=== PATIENT | female | born 1955 | race Caucasian/White ===

== ENCOUNTER → 2018-01-04 08:31 | Outpatient (CLI) | payer OTHER, SELFPAY ==
[2018-01-04 09:46] LABS: Add Manual Diff / Slide Review NO; Basophils Percent Auto 0.5 % (0-2); Eosinophils Percent Auto 1.7 % (2-4); Hematocrit 40.6 % (36-46); Hemoglobin 13.8 g/dL (12.0-16.0); Lymphocytes Percent Auto 28.1 % (25-40); Mean Corpuscular Volume 88.2 fL (80-100); Monocytes Percent Auto 7.6 % (3-14); Neutrophils Absolute Auto 4200 /uL (3000-5900); Neutrophils Percent Auto 62.1 % (50-75); Platelet Count 256 X10^3/uL (150-400); Red Blood Cell Count 4.61 X10^6/uL (4.0-5.2); Red Cell Distribution Width 13.9 % (11.6-14.8); White Blood Cell Count 6.8 X10^3/uL (4.5-11.0)
[2018-01-04 09:50] LABS: Alanine Aminotransferase 27 IU/L (9-52); Albumin 4.8 g/dL (3.5-5.0); Albumin Globulin Ratio 1.5 (1.0-2.8); Alkaline Phosphatase 77 U/L (38-126); Aspartate Aminotransferase 28 IU/L (14-36); BUN Creatinine Ratio 22.5 (6-22); Bilirubin Total 0.6 mg/dL (0.2-1.3); Blood Urea Nitrogen 18 mg/dL (7-17); Calcium 10.4 mg/dL (8.4-10.2); Carbon Dioxide 30 mmol/L (22-32); Chloride 99 mmol/L (98-107); Cholesterol 254 mg/dL (140-199); Estimated Glomerular Filt Rate > 60.0 mL/min (>60); Globulin 3.1 g/dL (1.7-4.1); Glucose 111 mg/dL (80-110); HDL Cholesterol 99 mg/dL (40-60); HEMOLYSIS < 15 (0-50); LDL Cholesterol Calculated 143 mg/dL (<100); Potassium 3.4 mmol/L (3.4-5.1); Sodium 140 mmol/L (137-145); Total Protein 7.9 g/dL (6.3-8.2); Triglycerides 58 mg/dL (35-150)
[2018-01-04 10:11] LABS: Creatinine Urine Random 74.3 mg/dL
[2018-01-04 10:21] LABS: Microalbumin Urine Random < 0.6 mg/dL (0-1.6)
[2018-01-04 10:44] LABS: Thyroid Stimulating Hormone 1.95 uIU/mL (0.47-4.68)
[2018-01-06 13:15] LABS: Fecal Immunochemical Test NOT DETECTED
--- NOTE | 2018-01-07 15:54 | PM.PFT.1 ---
Pulmonary Function Test Referral & Results Date Patient Seen: 01/04/18 Requesting provider: Neo Martinez Indication: Asthma Results: The spirometry demonstrates an FVC of 2.02 L which is 56% of predicted. The FEV1 was measured at 1.24 L which is 45% of predicted. The FEV1/FVC ratio was 61 which is 79% of predicted. Following the administration of bronchodilator there was a 22% improvement in FEV1 and a 117% improvement in FEF 25-75%. Lung volumes show an SVC of 2.68 L which is 81% of predicted. The diffusing capacity was measured at 25.30 which is 89% of predicted. No hemoglobin value was provided, so no correction for potential anemia could be made, if appropriate. The maximum voluntary ventilation was reduced. Interpretation: This study demonstrates moderately severe obstructive lung disease with evidence of significant benefit following bronchodilator administration There is mild restrictive lung disease present and if any only mild reduction in diffusing capacity suggesting minimal if any disease at the capillary alveolar level. Compared to PFTs performed in January 2016, current study shows essentially no change in spirometry, FEV1 is slightly diminished versus 2016 study. The diffusing capacity in 2016 was significantly lower than it was on this study, question whether patient was anemic previously and not currently. Clinical correlation suggested
--- NOTE | 2018-01-07 15:57 | P.PFT.S_ITS ---
Pulmonary Function Test Referral & Results Date Patient Seen: 01/04/18 Requesting provider: Neo Martinez Indication: Asthma Results: The spirometry demonstrates an FVC of 2.02 L which is 56% of predicted. The FEV1 was measured at 1.24 L which is 45% of predicted. The FEV1/FVC ratio was 61 which is 79% of predicted. Following the administration of bronchodilator there was a 22% improvement in FEV1 and a 117% improvement in FEF 25-75%. Lung volumes show an SVC of 2.68 L which is 81% of predicted. The diffusing capacity was measured at 25.30 which is 89% of predicted. No hemoglobin value was provided, so no correction for potential anemia could be made, if appropriate. The maximum voluntary ventilation was reduced. Interpretation: This study demonstrates moderately severe obstructive lung disease with evidence of significant benefit following bronchodilator administration There is mild restrictive lung disease present and if any only mild reduction in diffusing capacity suggesting minimal if any disease at the capillary alveolar level. Compared to PFTs performed in January 2016, current study shows essentially no change in spirometry, FEV1 is slightly diminished versus 2016 study. The diffusing capacity in 2016 was significantly lower than it was on this study , question whether patient was anemic previously and not currently. Clinical correlation suggested
== END ==
PROVIDERS: PCP Physician Assistant; Visit Provider Internal Medicine Pulmonary Disease
DX: J45.50 Severe persistent asthma, uncomplicated (principal); E06.3 Autoimmune thyroiditis; Z86.2 Personal history of diseases of the blood and blood-forming organs and certain disorders involving the immune mechanism; Z12.11 Encounter for screening for malignant neoplasm of colon; I10 Essential (primary) hypertension
CPT/HCPCS: 36415; 80053; 80061; 82043; 82274; 82570; 84443; 85025; 94010; 94060; 94726; 94729

== ENCOUNTER → 2018-04-23 12:20 | Outpatient (CLI) | payer OTHER, SELFPAY ==
--- NOTE | 2018-04-23 | DI.MG.S_ITS ---
BILATERAL DIGITAL SCREENING MAMMOGRAM 3D/2D WITH CAD: 04/23/2018 CLINICAL: Routine screening. Comparison is made to exams dated: 10/05/2016 mammogram, 09/29/2013 mammogram, and 03/28/2013 mammogram - [facility]. The tissue of both breasts is heterogeneously dense. This may lower the sensitivity of mammography. Current study was also evaluated with a Computer Aided Detection (CAD) system. There is irregular equal density architectural distortion with an indistinct margin in the right breast at 11 o'clock middle depth. No other significant masses, calcifications, or other findings are seen in either breast. IMPRESSION: INCOMPLETE: NEEDS ADDITIONAL IMAGING EVALUATION The irregular equal density architectural distortion in the right breast is indeterminate. Mediolateral and spot compression views as well as additional views with possible ultrasound are recommended. NOTE: For mammograms, a report in lay terms will be sent to the patient. Approximately 15% of breast malignancies will not be visualized mammographically. In the management of a palpable breast mass, a negative mammogram must not discourage biopsy of a clinically suspicious lesion. Electronically Signed By: Etienne scott/megan:04/25/2018 15:34:50 letter sent: Additional Imaging Needed ACR BI-RADS Category 0: Incomplete 3340F
== END ==
PROVIDERS: PCP Physician Assistant; Visit Provider Physician Assistant
DX: Z12.31 Encounter for screening mammogram for malignant neoplasm of breast (principal)
CPT/HCPCS: 77063; 77067

== ENCOUNTER → 2018-05-17 13:41 | Outpatient (CLI) | payer OTHER, SELFPAY ==
--- NOTE | 2018-05-17 13:44 | DI.US.S_ITS ---
LIMITED ULTRASOUND OF RIGHT BREAST: 05/17/2018 CLINICAL: Patient returns today to evaluate a focal asymmetry in the right breast. Comparison is made to exams dated: 05/17/2018 mammogram, 04/23/2018 mammogram, and 10/05/2016 mammogram - [facility]. Real-time and Doppler ultrasound of the right breast upper outer quadrant were performed. Archer scale images of the real-time examination were reviewed. No underlying breast mass or abnormality is identified. There is no ultrasound correlate for the previously noted possible architectural distortion in the right breast at 11 o'clock position on comparison screening mammogram (which also resolved with additional diagnostic mammographicviews performed today and likely represented superimposition of benign anatomic tissues). IMPRESSION: NEGATIVE There is no sonographic evidence of malignancy in the imaged upper outer right breast. Return to annual screening mammography is recommended. The patient is advised to monitor her breasts and to return sooner for re-evaluation should she feel anything grow or change. This exam was interpreted at Station ID: [id number]. Electronically Signed By: Junaid Nick M.D. ecl/:05/17/2018 15:25:30 letter sent: Normal Exam Ultrasound BI-RADS: 1 Negative
--- NOTE | 2018-05-17 13:44 | DI.MG.S_ITS ---
UNILATERAL RIGHT DIGITAL DIAGNOSTIC MAMMOGRAM 3D/2D WITH ADDITIONAL VIEWS: 05/17/2018 CLINICAL: Additional evaluation requested from prior study. Comparison is made to exams dated: 04/23/2018 mammogram, 10/05/2016 mammogram, 09/29/2013 mammogram, and 03/28/2013 mammogram - [facility]. The tissue of right breast is heterogeneously dense. This may lower the sensitivity of mammography. Previously noted irregular equal density architectural distortion with an indistinct margin in the right breast at 11 o'clock middle depth on comparison screening mammogram resolves with additional views and likely represented superimposition of benign anatomic tissues. No significant masses, calcifications, or other findings are seen in the breast. IMPRESSION: INCOMPLETE: NEEDS ADDITIONAL IMAGING EVALUATION Previously noted irregular equal density architectural distortion with an indistinct margin in the right breast at 11 o'clock middle depth on comparison screening mammogram resolves with additional views and likely represented superimposition of benign anatomic tissues. A targeted ultrasound is recommended and will be performed immediately following this exam. This exam was interpreted at Station ID: [id number]. NOTE: For mammograms, a report in lay terms will be sent to the patient. Approximately 15% of breast malignancies will not be visualized mammographically. In the management of a palpable breast mass, a negative mammogram must not discourage biopsy of a clinically suspicious lesion. Electronically Signed By: Junaid Nick M.D. ecl/:05/17/2018 14:21:31 letter sent: Additional Imaging Needed ACR BI-RADS Category 0: Incomplete 3340F
== END ==
PROVIDERS: PCP Physician Assistant; Visit Provider Physician Assistant
DX: R92.8 Other abnormal and inconclusive findings on diagnostic imaging of breast (principal); N63.11 Unspecified lump in the right breast, upper outer quadrant
CPT/HCPCS: 76642; 77065; G0279

== ENCOUNTER → 2018-06-27 08:21 | Outpatient (CLI) | payer OTHER, SELFPAY ==
[2018-06-27 09:18] LABS: Calcium 10.4 mg/dL (8.4-10.2); Cholesterol 255 mg/dL (140-199); Glucose 113 mg/dL (80-110); HDL Cholesterol 94 mg/dL (40-60); LDL Cholesterol Calculated 145 mg/dL (<100); Triglycerides 79 mg/dL (35-150)
== END ==
PROVIDERS: PCP Physician Assistant; Visit Provider Physician Assistant
DX: R73.01 Impaired fasting glucose (principal); E83.52 Hypercalcemia; E78.5 Hyperlipidemia, unspecified
CPT/HCPCS: 36415; 80061; 82310; 82947

== ENCOUNTER → 2019-01-13 08:30 | Outpatient (CLI) | payer MEDICARE, SELFPAY ==
[2019-01-13 09:22] LABS: Alanine Aminotransferase 15 IU/L (9-52); Albumin 4.5 g/dL (3.5-5.0); Albumin Globulin Ratio 1.5 (1.0-2.8); Alkaline Phosphatase 80 U/L (38-126); Aspartate Aminotransferase 28 IU/L (14-36); BUN Creatinine Ratio 17.5 (6-22); Bilirubin Total 0.4 mg/dL (0.2-1.3); Blood Urea Nitrogen 14 mg/dL (7-17); Calcium 10.2 mg/dL (8.4-10.2); Carbon Dioxide 30 mmol/L (22-32); Chloride 98 mmol/L (98-107); Cholesterol 248 mg/dL (140-199); Estimated Glomerular Filt Rate > 60.0 mL/min (>60); Globulin 3.1 g/dL (1.7-4.1); Glucose 115 mg/dL (80-110); HDL Cholesterol 93 mg/dL (40-60); HEMOLYSIS < 15 (0-50); LDL Cholesterol Calculated 133 mg/dL (<100); Potassium 3.7 mmol/L (3.4-5.1); Sodium 136 mmol/L (137-145); Total Protein 7.6 g/dL (6.3-8.2); Triglycerides 110 mg/dL (35-150)
[2019-01-13 09:51] LABS: Thyroid Stimulating Hormone 2.38 uIU/mL (0.47-4.68)
[2019-01-13 09:53] LABS: Creatinine Urine Random 155.5 mg/dL
[2019-01-13 09:56] LABS: Microalbumi Creatinin Ratio Ur 6.4 ug/mg CR (<30)
[2019-01-17 14:30] LABS: Fecal Immunochemical Test NOT DETECTED (NOT DETECTED)
== END ==
PROVIDERS: PCP Physician Assistant; Visit Provider Physician Assistant
DX: E06.3 Autoimmune thyroiditis (principal); E78.5 Hyperlipidemia, unspecified; I10 Essential (primary) hypertension; Z12.11 Encounter for screening for malignant neoplasm of colon
CPT/HCPCS: 36415; 80053; 80061; 82043; 82274; 82570; 84443

== ENCOUNTER → 2019-12-11 08:15 | Outpatient (CLI) | payer MEDICARE, SELFPAY ==
[2019-12-11 09:13] LABS: BUN Creatinine Ratio 16.5 (6-22); Blood Urea Nitrogen 13 mg/dL (7-17); Calcium 10.6 mg/dL (8.4-10.2); Carbon Dioxide 27 mmol/L (22-32); Chloride 98 mmol/L (98-107); Estimated Glomerular Filt Rate > 60.0 mL/min (>60); Glucose 139 mg/dL (80-110); HEMOLYSIS < 15 (0-50); Sodium 135 mmol/L (137-145)
== END ==
PROVIDERS: Referring Provider Registered Nurse; Visit Provider Registered Nurse
DX: Z51.81 Encounter for therapeutic drug level monitoring (principal)
CPT/HCPCS: 36415; 80048

== ENCOUNTER → 2019-12-27 08:13 | Outpatient (CLI) | payer MEDICARE, SELFPAY ==
[2019-12-27 10:03] LABS: Hemoglobin A1C% w Est Avg Glu 5.5 % (4.0-6.0)
[2019-12-28 13:40] LABS: Ionized Calcium 5.2 mg/dL (4.5-5.6)
== END ==
PROVIDERS: Referring Provider Registered Nurse; Visit Provider Registered Nurse
DX: E83.52 Hypercalcemia (principal); R73.9 Hyperglycemia, unspecified
CPT/HCPCS: 36415; 82330; 83036

== ENCOUNTER → 2020-01-12 08:58 | Outpatient (CLI) | payer MEDICARE, SELFPAY ==
[2020-01-12 10:29] LABS: Hematocrit 39.6 % (36-46); Hemoglobin 13.6 g/dL (12.0-16.0); Mean Corpuscular HGB Conc 34.2 % (30-36); Mean Corpuscular Hemoglobin 29.3 PG (26-34); Mean Corpuscular Volume 85.6 fL (80-100); Platelet Count 255 X10^3/uL (150-400); Red Blood Cell Count 4.62 X10^6/uL (4.0-5.2); Red Cell Distribution Width 13.5 % (11.6-14.8); White Blood Cell Count 5.8 X10^3/uL (4.5-11.0)
[2020-01-12 11:05] LABS: Alanine Aminotransferase 18 IU/L (<35); Albumin 4.6 g/dL (3.5-5.0); Albumin Globulin Ratio 1.8 (1.0-2.8); Alkaline Phosphatase 88 U/L (38-126); Aspartate Aminotransferase 26 IU/L (14-36); BUN Creatinine Ratio 15.2 (6-22); Bilirubin Total 0.5 mg/dL (0.2-1.3); Blood Urea Nitrogen 12 mg/dL (7-17); Calcium 10.6 mg/dL (8.4-10.2); Carbon Dioxide 31 mmol/L (22-32); Chloride 97 mmol/L (98-107); Cholesterol 228 mg/dL (140-199); Estimated Glomerular Filt Rate > 60.0 mL/min (>60); Globulin 2.5 g/dL (1.7-4.1); Glucose 104 mg/dL (80-110); HDL Cholesterol 91 mg/dL (40-60); HEMOLYSIS < 15 (0-50); LDL Cholesterol Calculated 122 mg/dL (<100); Potassium 3.8 mmol/L (3.4-5.1); Sodium 134 mmol/L (137-145); Total Protein 7.1 g/dL (6.3-8.2); Triglycerides 73 mg/dL (35-150)
[2020-01-12 11:14] LABS: Free T4, Direct Thyroxine 1.67 ng/dL (0.78-2.19)
[2020-01-12 11:29] LABS: Thyroid Stimulating Hormone 0.581 uIU/mL (0.47-4.68)
== END ==
PROVIDERS: PCP Nurse Practitioner Family; Referring Provider Nurse Practitioner Family; Visit Provider Nurse Practitioner Family
DX: E03.8 Other specified hypothyroidism (principal); E06.3 Autoimmune thyroiditis; I10 Essential (primary) hypertension; J44.9 Chronic obstructive pulmonary disease, unspecified; E78.5 Hyperlipidemia, unspecified; E03.9 Hypothyroidism, unspecified
CPT/HCPCS: 36415; 80053; 80061; 84439; 84443; 85027

== ENCOUNTER → 2020-04-11 07:25 | Outpatient (CLI) | payer MEDICARE, SELFPAY ==
[2020-04-12 14:29] LABS: Calcium 10.3 mg/dL (8.7-10.3); Parathyroid Hormone, Intact 29 pg/mL (15-65)
== END ==
PROVIDERS: PCP Nurse Practitioner Family; Referring Provider Nurse Practitioner Family; Visit Provider Nurse Practitioner Family
DX: E83.52 Hypercalcemia (principal)
CPT/HCPCS: 36415; 82310; 83970

== ENCOUNTER → 2020-06-06 10:00 | Outpatient (CLI) | payer MEDICARE, SELFPAY ==
[2020-06-06 11:34] LABS: COVID19 -Nasal RAPID Negative (Negative)
== END ==
PROVIDERS: PCP Nurse Practitioner Family; Referring Provider Internal Medicine; Visit Provider Internal Medicine
DX: Z11.59 Encounter for screening for other viral diseases (principal)
CPT/HCPCS: 87635; C9803

== ENCOUNTER → 2020-06-07 14:34 | Outpatient (CLI) | payer MEDICARE, SELFPAY ==
--- NOTE | 2020-06-14 16:14 | PM.PFT.1 ---
Pulmonary Function Test Referral & Results Date Patient Seen: 06/07/20 Requesting provider: Sadia Santos Results: The spirometry demonstrates an FVC of 2.43 L which is 69% of predicted. The FEV1 was measured at 1.39 L which is 51% of predicted. The FEV1/FVC ratio was 57 which is 74% of predicted. Following the administration of bronchodilator there was a 58% improvement in FEF 25-75%. Lung volumes show an SVC of 2.33 L which is 71% of predicted. The diffusing capacity was measured at 15.64 which is 55% of predicted. No hemoglobin value was provided, so no correction for potential anemia could be made, if appropriate. The maximum voluntary ventilation was reduced Interpretation: This study demonstrates moderate obstructive lung disease with evidence of some limited benefit following bronchodilator particularly small airway flow based on improvement in FEF 25-75% as above There is also minimal restrictive lung disease based on reduction SVC There is also notable reduction in diffusing capacity suggesting disease at the capillary alveolar level as well Compared to PFTs performed in December 2017, current study is essentially unchanged as far as spirometry but diffusing capacity has diminished further. Clinical correlation suggested
== END ==
PROVIDERS: PCP Nurse Practitioner Family; Referring Provider Internal Medicine Pulmonary Disease; Visit Provider Internal Medicine Pulmonary Disease
DX: J44.9 Chronic obstructive pulmonary disease, unspecified (principal); Z87.891 Personal history of nicotine dependence
CPT/HCPCS: 94060; 94726; 94729

== ENCOUNTER → 2020-06-26 07:55 | Outpatient (CLI) | payer MEDICARE, SELFPAY ==
[2020-06-27 15:24] LABS: Fecal Immunochemical Test Negative (Negative)
== END ==
PROVIDERS: PCP Nurse Practitioner Family; Referring Provider Nurse Practitioner Family; Visit Provider Nurse Practitioner Family
DX: Z12.11 Encounter for screening for malignant neoplasm of colon (principal)
CPT/HCPCS: 82274

== ENCOUNTER → 2020-10-11 09:33 | Outpatient (CLI) | payer MEDICARE, SELFPAY ==
--- NOTE | 2020-10-11 09:37 | DI.MG.S_ITS ---
BILATERAL DIGITAL SCREENING MAMMOGRAM 3D/2D WITH CAD: 10/11/2020 CLINICAL: Routine screening. Comparison is made to exams dated: 04/23/2018 mammogram, 10/05/2016 mammogram, 09/29/2013 mammogram, 05/17/2018 mammogram, and 03/28/2013 mammogram - [facility]. The tissue of both breasts is heterogeneously dense. This may lower the sensitivity of mammography. Current study was also evaluated with a Computer Aided Detection (CAD) system. No significant masses, calcifications, or other findings are seen in either breast. There has been no significant interval change. IMPRESSION: NEGATIVE There is no mammographic evidence of malignancy. A 1 year screening mammogram is recommended. This exam was interpreted at Station ID: [id number]. NOTE: For mammograms, a report in lay terms will be sent to the patient. Approximately 15% of breast malignancies will not be visualized mammographically. In the management of a palpable breast mass, a negative mammogram must not discourage biopsy of a clinically suspicious lesion. Electronically Signed By: Tavo gold/megan:10/11/2020 13:01:19 letter sent: Normal Exam ACR BI-RADS Category 1: Negative 3341F
== END ==
PROVIDERS: PCP Nurse Practitioner Family; Referring Provider Nurse Practitioner Family; Visit Provider Nurse Practitioner Family
DX: Z78.0 Asymptomatic menopausal state (principal); Z12.31 Encounter for screening mammogram for malignant neoplasm of breast; E07.9 Disorder of thyroid, unspecified; Z87.891 Personal history of nicotine dependence
CPT/HCPCS: 77063; 77067; 77080

== ENCOUNTER → 2020-11-18 09:35 | Outpatient (CLI) | payer MEDICARE, SELFPAY ==
[2020-11-18 10:49] LABS: Hematocrit 37.9 % (36-46); Hemoglobin 12.9 g/dL (12.0-16.0); Mean Corpuscular HGB Conc 33.9 % (30-36); Mean Corpuscular Hemoglobin 29.5 PG (26-34); Mean Corpuscular Volume 86.9 fL (80-100); Platelet Count 251 X10^3/uL (150-400); Red Blood Cell Count 4.37 X10^6/uL (4.0-5.2); Red Cell Distribution Width 13.4 % (11.6-14.8); White Blood Cell Count 6.7 X10^3/uL (4.5-11.0)
[2020-11-18 11:02] LABS: Alanine Aminotransferase 22 IU/L (<35); Albumin 4.3 g/dL (3.5-5.0); Albumin Globulin Ratio 1.4 (1.0-2.8); Alkaline Phosphatase 80 U/L (38-126); Aspartate Aminotransferase 36 IU/L (14-36); BUN Creatinine Ratio 18.6 (6-22); Bilirubin Total 0.3 mg/dL (0.2-1.3); Blood Urea Nitrogen 13 mg/dL (7-17); Calcium 9.9 mg/dL (8.4-10.2); Carbon Dioxide 26 mmol/L (22-32); Chloride 97 mmol/L (98-107); Cholesterol 231 mg/dL (140-199); Estimated Glomerular Filt Rate > 60.0 mL/min (>60); Glucose 115 mg/dL (80-110); HDL Cholesterol 90 mg/dL (40-60); HEMOLYSIS < 15 (0-50); LDL Cholesterol Calculated 126 mg/dL (<100); Sodium 133 mmol/L (137-145); Total Protein 7.3 g/dL (6.3-8.2); Triglycerides 74 mg/dL (35-150)
== END ==
PROVIDERS: PCP Nurse Practitioner Family; Referring Provider Nurse Practitioner Family; Visit Provider Nurse Practitioner Family
DX: Z00.00 Encounter for general adult medical examination without abnormal findings (principal); E03.8 Other specified hypothyroidism; I10 Essential (primary) hypertension; E06.3 Autoimmune thyroiditis; J44.9 Chronic obstructive pulmonary disease, unspecified; E78.5 Hyperlipidemia, unspecified
CPT/HCPCS: 36415; 80053; 80061; 84443; 85027

== ENCOUNTER → 2020-11-28 07:30 | Outpatient (CLI) | payer MEDICARE, SELFPAY ==
[2020-11-28 09:29] LABS: HEMOLYSIS < 15 (0-50); Potassium 3.2 mmol/L (3.4-5.1); Sodium 136 mmol/L (137-145)
[2020-11-28 09:32] LABS: Hemoglobin A1C% w Est Avg Glu 5.4 % (4.0-6.0)
[2020-11-28 10:05] LABS: TSH w/ Reflex to FT4 1.03 uIU/mL (0.47-4.68)
== END ==
PROVIDERS: PCP Nurse Practitioner Family; Referring Provider Nurse Practitioner Family; Visit Provider Nurse Practitioner Family
DX: R73.9 Hyperglycemia, unspecified (principal); E87.1 Hypo-osmolality and hyponatremia; E87.6 Hypokalemia; E03.8 Other specified hypothyroidism; E06.3 Autoimmune thyroiditis
CPT/HCPCS: 36415; 83036; 84132; 84295; 84443

== ENCOUNTER → 2020-12-16 07:23 | Outpatient (CLI) | payer MEDICARE, SELFPAY ==
[2020-12-16 08:59] LABS: HEMOLYSIS < 15 (0-50)
== END ==
PROVIDERS: PCP Nurse Practitioner Family; Referring Provider Nurse Practitioner Family; Visit Provider Nurse Practitioner Family
DX: E87.6 Hypokalemia (principal)
CPT/HCPCS: 36415; 84132

== ENCOUNTER → 2021-03-27 07:27 | Outpatient (CLI) | payer MEDICARE, SELFPAY ==
[2021-03-27 09:38] LABS: Hematocrit 40.5 % (36-46); Hemoglobin 13.7 g/dL (12.0-16.0); Mean Corpuscular HGB Conc 33.8 % (30-36); Mean Corpuscular Hemoglobin 29.5 PG (26-34); Mean Corpuscular Volume 87.1 fL (80-100); Platelet Count 259 X10^3/uL (150-400); Red Blood Cell Count 4.65 X10^6/uL (4.0-5.2); Red Cell Distribution Width 13.3 % (11.6-14.8); White Blood Cell Count 5.6 X10^3/uL (4.5-11.0)
[2021-03-27 10:31] LABS: Alanine Aminotransferase 19 IU/L (<35); Albumin 4.4 g/dL (3.5-5.0); Albumin Globulin Ratio 1.6 (1.0-2.8); Alkaline Phosphatase 81 U/L (38-126); Aspartate Aminotransferase 26 IU/L (14-36); BUN Creatinine Ratio 16.9 (6-22); Bilirubin Total 0.6 mg/dL (0.2-1.3); Blood Urea Nitrogen 12 mg/dL (7-17); Calcium 10.4 mg/dL (8.4-10.2); Carbon Dioxide 31 mmol/L (22-32); Chloride 100 mmol/L (98-107); Estimated Glomerular Filt Rate > 60.0 mL/min (>60); Globulin 2.7 g/dL (1.7-4.1); Glucose 102 mg/dL (80-110); HEMOLYSIS < 15 (0-50); Potassium 3.7 mmol/L (3.4-5.1); Sodium 137 mmol/L (137-145); Total Protein 7.1 g/dL (6.3-8.2)
[2021-03-27 10:46] LABS: Free T4, Direct Thyroxine 1.84 ng/dL (0.78-2.19)
[2021-03-27 11:00] LABS: Thyroid Stimulating Hormone 0.032 uIU/mL (0.47-4.68)
== END ==
PROVIDERS: PCP Nurse Practitioner Family; Referring Provider Nurse Practitioner Family; Visit Provider Nurse Practitioner Family
DX: Z00.00 Encounter for general adult medical examination without abnormal findings (principal); I10 Essential (primary) hypertension; E03.8 Other specified hypothyroidism; E06.3 Autoimmune thyroiditis
CPT/HCPCS: 36415; 80053; 84439; 84443; 85027

== ENCOUNTER → 2021-04-22 08:32 | Outpatient (CLI) | payer MEDICARE, SELFPAY ==
--- NOTE | 2021-04-22 08:37 | DI.RAD.S_ITS ---
PROCEDURE: XR HIP W PEL IF DONE RT 2V INDICATIONS: right hip pain TECHNIQUE: AP pelvis with lateral view(s) of the right hip(s). COMPARISON: None. FINDINGS: Bones: Postsurgical changes compatible with ORIF of right pelvic fractures noted. No acute fractures or dislocations. Pelvic ring appears intact. No suspicious bony lesions. Moderate osteoarthritic degenerative changes with joint space narrowing, subchondral sclerosis and osseous hypertrophy noted in the right hip. Soft tissues: The visualized bowel gas pattern is normal. Multiple soft tissue calcifications project over the hip and in the lateral margin of the proximal right thigh. IMPRESSION: Moderate right hip osteoarthritis. Dictated by: Kimberly Vick MD, PhD on 04/22/2021 at 13:56 Approved by: Kimberly Vick MD, PhD on 04/22/2021 at 13:58
== END ==
PROVIDERS: PCP Nurse Practitioner Family; Referring Provider Nurse Practitioner; Visit Provider Nurse Practitioner
DX: M25.551 Pain in right hip (principal); M16.11 Unilateral primary osteoarthritis, right hip
CPT/HCPCS: 73502

== ENCOUNTER → 2021-05-13 13:19 | Outpatient (CLI) | payer MEDICARE, SELFPAY ==
--- NOTE | 2021-05-13 13:20 | DI.MRI.S_ITS ---
PROCEDURE: MR HIP RT WO CON INDICATIONS: ongoing hip pain, history of hardware TECHNIQUE: Noncontrast coronal T1 spin echo and STIR through the bony pelvis. Coronal and axial T2 fast spin echo with fat saturation, sagittal T1 spin echo, and oblique axial T2 fast spin echo with fat saturation through the hip. COMPARISON: [facility], CR, XR HIP W PEL IF DONE RT 2V, 04/22/2021, 8:30. FINDINGS: BONES AND JOINTS: Suboptimal evaluation secondary to severe hardware susceptibility artifact due to right pelvic plate and screw fixation. Osseous structures: No fracture identified. Mild left hip joint degeneration. Sacroiliac joints: Unremarkable in signal intensity. Tarlov cysts incidentally noted at the L5-S1 level. Lower lumbar spine: Diffuse spondylosis and facet arthropathy. Other: No evidence of osteonecrosis. Right femoral head is partially obscured by hardware artifact TENDONS AND LIGAMENTS: Gluteus medius and minimus tendons: Mild gluteus medius insertional tendinopathy with minimal thickening. The gluteus minimus tendon appears grossly intact. There is also mild left hip abductor insertional tendinopathy. Proximal iliotibial band: Intact. Iliopsoas tendon: Intact. Origin of the hamstring tendon: Intact. Rectus femoris muscle origins: Intact Ligamentum teres: Obscured by artifact LABRUM: Labrum: Not seen secondary to severe hardware artifact. Alpha angle of the femur: Markedly abnormal, technically measuring 109?. This is secondary to extensive anterior bulky osteophyte formation and loss of the normal femoral head neck step-off. SOFT TISSUES: Visualized muscles: Normal bulk and internal signal. Quadratus femoris muscle: Normal. Proximal sciatic neurovascular bundle: Normal adjacent to the hamstring tendons. Other: No pelvic free fluid. Bladder: Normal. Genitourinary structures and bowel loops: Normal where visualized. IMPRESSION: Suboptimal evaluation secondary to hardware artifact as above. Severe right hip joint degeneration, with bulky osteophyte formation and numerous intra-articular loose bodies. Labrum is obscured by hardware artifact. Additional chronic and incidental findings as above. Dictated by: Keenan Mena M.D. on 05/13/2021 at 14:53 Approved by: Keenan Mena M.D. on 05/13/2021 at 15:03
== END ==
PROVIDERS: PCP Nurse Practitioner Family; Referring Provider Nurse Practitioner Family; Visit Provider Nurse Practitioner Family
DX: M25.551 Pain in right hip (principal); M16.12 Unilateral primary osteoarthritis, left hip; M47.816 Spondylosis without myelopathy or radiculopathy, lumbar region; G96.191 Perineural cyst
CPT/HCPCS: 73721

== ENCOUNTER → 2022-02-05 09:58 | Outpatient (CLI) | payer MEDICARE, SELFPAY ==
[2022-02-05 10:39] LABS: Add Manual Diff / Slide Review NO; Basophils Absolute Auto 0 /uL (0-100); Basophils Percent Auto 0.5 % (0-2); Eosinophils Absolute Auto 100 /uL (0-450); Eosinophils Percent Auto 0.8 % (2-4); Hemoglobin 12.9 g/dL (12.0-16.0); Lymphocytes Absolute Auto 1300 /uL (1100-4500); Lymphocytes Percent Auto 19.7 % (25-40); Mean Corpuscular HGB Conc 34.9 % (30-36); Mean Corpuscular Hemoglobin 29.8 PG (26-34); Mean Corpuscular Volume 85.3 fL (80-100); Monocytes Absolute Auto 500 /uL (0-900); Monocytes Percent Auto 7.3 % (3-14); Neutrophils Absolute Auto 4600 /uL (1500-7000); Neutrophils Percent Auto 71.7 % (50-75); Platelet Count 250 X10^3/uL (150-400); Red Blood Cell Count 4.34 X10^6/uL (4.0-5.2); Red Cell Distribution Width 13.1 % (11.6-14.8); White Blood Cell Count 6.4 X10^3/uL (4.5-11.0)
[2022-02-05 10:56] LABS: Alanine Aminotransferase 19 IU/L (<35); Albumin 4.3 g/dL (3.5-5.0); Albumin Globulin Ratio 1.5 (1.0-2.8); Alkaline Phosphatase 81 U/L (38-126); Aspartate Aminotransferase 31 IU/L (14-36); BUN Creatinine Ratio 24.3 (6-22); Bilirubin Total 0.4 mg/dL (0.2-1.3); Blood Urea Nitrogen 17 mg/dL (7-17); Calcium 9.7 mg/dL (8.4-10.2); Carbon Dioxide 30 mmol/L (22-32); Chloride 99 mmol/L (98-107); Cholesterol 205 mg/dL (140-199); Estimated Glomerular Filt Rate > 60 mL/min (>60); Globulin 2.9 g/dL (1.7-4.1); Glucose 108 mg/dL (80-110); HDL Cholesterol 88 mg/dL (40-60); HEMOLYSIS < 15 (0-50); LDL Cholesterol Calculated 101 mg/dL (<100); Potassium 3.5 mmol/L (3.4-5.1); Sodium 135 mmol/L (137-145); Total Protein 7.2 g/dL (6.3-8.2); Triglycerides 81 mg/dL (35-150)
[2022-02-05 15:34] LABS: Free T4, Direct Thyroxine 1.35 ng/dL (0.78-2.19)
[2022-02-05 15:48] LABS: Thyroid Stimulating Hormone 6.45 uIU/mL (0.47-4.68)
== END ==
PROVIDERS: PCP Family Medicine; Referring Provider Family Medicine; Visit Provider Family Medicine
DX: E03.8 Other specified hypothyroidism (principal); E06.3 Autoimmune thyroiditis; E78.5 Hyperlipidemia, unspecified; E87.6 Hypokalemia; I10 Essential (primary) hypertension
CPT/HCPCS: 36415; 80053; 80061; 84439; 84443; 85025

== ENCOUNTER → 2022-02-18 11:23 | Outpatient (CLI) | payer MEDICARE, SELFPAY ==
[2022-02-18 12:12] LABS: COVID19 -Nasal RAPID Negative (Negative)
== END ==
PROVIDERS: PCP Family Medicine; Referring Provider Internal Medicine; Visit Provider Internal Medicine
DX: Z20.822 Contact with and (suspected) exposure to COVID-19 (principal)
CPT/HCPCS: 87635; 94726; 94729; C9803

== ENCOUNTER → 2022-02-18 11:27 | Outpatient (CLI) | payer MEDICARE, SELFPAY ==
--- NOTE | 2022-02-20 08:20 | PM.PFT.1 ---
Pulmonary Function Test Referral & Results Date Patient Seen: 02/18/22 Requesting provider: Korey Saenz Results: The spirometry demonstrates an FVC of 2.24 L which is 65% of predicted. The FEV1 was measured at 1.27 L which is 48% of predicted. The FEV1/FVC ratio was 57 which is 74% of predicted. Following the administration of bronchodilator there was no notable change. Lung volumes show an SVC of 2.79 L which is 87% of predicted. The diffusing capacity was measured at 14.36 which is 50% of predicted. No hemoglobin value was provided, so no correction for potential anemia could be made, if appropriate. The maximum voluntary ventilation was reduced Interpretation: This study demonstrates moderately severe obstructive lung disease with FEV1 at 48%. There is really no evidence of benefit following bronchodilator administration There is a very mild reduction in lung volumes suggesting the presence mild restrictive lung disease Diffusing capacity is also significantly reduced suggesting disease at the capillary alveolar level Clinical correlation suggested
== END ==
PROVIDERS: PCP Family Medicine; Referring Provider Family Medicine; Visit Provider Family Medicine
DX: J44.9 Chronic obstructive pulmonary disease, unspecified (principal); Z87.891 Personal history of nicotine dependence; Z20.822 Contact with and (suspected) exposure to COVID-19
CPT/HCPCS: 87635; 94060; 94726; 94729; C9803

== ENCOUNTER → 2022-02-19 10:48 | Outpatient (CLI) | payer MEDICARE, SELFPAY ==
[2022-02-23 22:08] LABS: Fecal Immunochemical Test Positive (Negative)
== END ==
PROVIDERS: PCP Family Medicine; Referring Provider Family Medicine; Visit Provider Family Medicine
DX: E03.8 Other specified hypothyroidism (principal); E06.3 Autoimmune thyroiditis; E78.5 Hyperlipidemia, unspecified; E87.6 Hypokalemia; I10 Essential (primary) hypertension; Z12.11 Encounter for screening for malignant neoplasm of colon
CPT/HCPCS: 82274

== ENCOUNTER → 2022-05-08 09:21 | Outpatient (CLI) | payer MEDICARE, SELFPAY ==
[2022-05-08 11:00] LABS: COVID19 -Nasal RAPID Negative (Negative)
== END ==
PROVIDERS: PCP Family Medicine; Visit Provider Surgery
DX: Z01.812 Encounter for preprocedural laboratory examination (principal); Z20.822 Contact with and (suspected) exposure to COVID-19
CPT/HCPCS: 87635; C9803

== ENCOUNTER 2022-05-11 13:23 | Day surgery (SDC) | payer MEDICARE, SELFPAY ==
[2022-05-11] VITALS (7 sets, daily range): BP systolic 156–178; BP diastolic 77–98; PULSE 70–96; RESP 16–22; TEMP 36.2–36.4; O2SAT 97–99; BMI 23.8
--- NOTE | 2022-05-11 13:54 | PM.HP.1 ---
History of Present Illness History of Present Illness Date Patient Seen: 05/11/22 Time Patient Seen: 13:55 Chief complaint: SDC Narrative: I reviewed my recent office note. Positive FIT. Patient History Medical History Chicken pox Chronic back pain COPD (chronic obstructive pulmonary disease) with acute bronchitis Depression (02/2019) Essential hypertension Fibromyalgia (~1989) Fractures (~1974) History of iron deficiency anemia Hypokalemia Measles Migraine without aura or status migrainosus Osteoarthritis (~1991) Plantar warts Positive FIT (fecal immunochemical test) Post-menopause Right hip pain (01/2021) Serum calcium elevated Shoulder pain Tinnitus Vertigo Surgical History Anesthesia History of hip surgery (~1974) Family & Social History Family History Father Diabetes mellitus Hypertension Hyperlipidemia Stroke Mother Cancer Brother Cancer Tobacco & Substance use: Smoking Status Current some day smoker alcohol intake current Meds Home Medications and Allergies Home Medications Medication Instructions Recorded Confirmed Type cholecalciferol (vitamin D3) 125 125 mcg PO DAILY 01/10/20 05/11/22 History mcg (5,000 unit) capsule diclofenac sodium 1 % topical gel 1 % topical QID PRN neck pain #100 01/12/20 05/11/22 Rx (Voltaren) grams levalbuterol HCl 1.25 mg/3 mL See Rx Instructions .Route 01/12/20 05/11/22 Rx solution for nebulization (Xopenex) .COMPLEX #288 mL levalbuterol tartrate 45 2 puff inhalation Q4-6H PRN 08/02/20 05/11/22 Rx mcg/actuation aerosol inhaler shortness of breath or wheezing #15 grams Dulera 200 mcg-5 mcg/actuation HFA 2 puff inhalation BID #8.8 grams 10/04/20 05/11/22 Rx aerosol inhaler (mometasone-formoterol) vitamin E mixed 1,000 unit capsule 1,000 unit PO DAILY 12/17/20 05/11/22 History potassium chloride 10 mEq See Rx Instructions .Route 08/21/21 05/11/22 Rx capsule,extended release .COMPLEX #135 caps tiotropium bromide 2.5 See Rx Instructions .Route 01/05/22 05/11/22 Rx mcg/actuation mist for inhalation .COMPLEX #12 grams (Spiriva Respimat) lidocaine 5 % topical patch 1 patch topical DAILY #30 ea 02/05/22 05/11/22 Rx levothyroxine 112 mcg tablet 112 mcg PO DAILY #90 tabs 02/12/22 05/11/22 Rx chlorthalidone 25 mg tablet See Rx Instructions .Route 04/01/22 05/11/22 Rx .COMPLEX #90 tabs losartan 100 mg tablet See Rx Instructions .Route 04/13/22 05/11/22 Rx .COMPLEX #90 tabs clonidine HCl 0.1 mg tablet 0.1 mg PO DAILY 05/11/22 05/11/22 History Allergies Allergy/AdvReac Type Severity Reaction Status Date / Time fluticasone AdvReac Severe SWOLLEN Unverified 04/17/21 08:45 [From ADVAIR DISKUS] THROAT salmeterol AdvReac Severe SWOLLEN Unverified 04/17/21 08:45 [From ADVAIR DISKUS] THROAT sertraline AdvReac Severe increased Verified 04/17/21 08:45 depression tramadol [TRAMADOL] AdvReac Severe hot flashes Unverified 04/17/21 08:45 Review of Systems Review of Systems ROS: Yes All systems reviewed with the patient and are negative except as otherwise documented Exam Const General: cooperative HENMT Head: normal to inspection Eyes General: appearance normal, both eyes and all related structures Neck Neck: normal visual inspection Chest Chest: normal inspection of the chest Resp Effort & Inspection: normal respiratory effort Cardio Rate: regular rate GI Inspection: normal to inspection Skin General: no rashes or lesions noted Neuro General: patient alert and patient awake Extrem General: normal to inspection and no pedal edema Psych Appearance: grossly normal Assessment & Plan Assessment & Plan narrative: 66-year-old female with a positive FIT. Colonoscopy is pursued today. Time Spent With Patient Critical Care time: I spent a total of [] minutes of critical care time on this patient's care today; this time is exclusive of procedural time.
--- NOTE | 2022-05-11 13:57 | PM.PREOP ---
Pre-operative Note COVID-19 COVID-19 status: Negative Result date/Date tested (Pos, Neg/Pending): 05/08/22 Criteria for continued procedure: Possibility delay results in more complex future surgery or treatment Interval Note History & Physical reviewed/Exam performed by Physician: Yes Changes to H&P: No ASA Class (for procedural sedation): III
[2022-05-11] MEDS: SODIUM CHLORIDE 0.9% 1,000 ML 84 ML IV (14:26)
--- NOTE | 2022-05-11 15:12 | PM.OP.COLON ---
Operative Date/Time/Diagnoses Date of procedure: 05/11/22 Time of procedure: 15:13 Pre-op diagnosis: Positive FIT Post-op diagnosis: same Procedure & Clinicians Study performed: Colonoscopy Same procedure as scheduled: Yes Indications: Positive FIT Surgeon: Neo Duncan Procedure Notes SCOAP/Timeout: Done Procedure in detail: After the risks and benefits were explained, written and verbal informed consent was obtained. The patient was brought into the procedure room and placed into the left lateral decubitus position. Please see nurse laboratory coordinator notes for sedation details. Digital rectal examination was accomplished. The scope was introduced into the patient and advanced under direct visualization to the cecum as identified by the appendiceal orifice and ileocecal valve. The scope was slowly withdrawn to carefully examine the mucosa for any defects or lesions. Comprehensive imaging was accomplished throughout the rectum including the dentate line. The colon was decompressed, the scope was then removed from the patient who tolerated the procedure well. Pediatric colonoscope Bowel prep adequate Scope withdrawal time: 8 minutes Sedation minutes: 19 Specimen(s): none sent Complications: none Impression: Patient had a fairly tortuous sigmoid. There was rather extensive large-mouthed diverticulosis throughout this region. No significant polyps mass lesions or inflammatory features identified throughout. Grade 1-2 internal hemorrhoids nonthrombosed nonbleeding. Endoscopic diagnosis 1. Diverticulosis 2. Grade 2 hemorrhoids 3. Twisty left colon Post-procedure Plan for aftercare: Continue to follow along in primary care as before. I suspect the mild hemorrhoids to likely be the source for the positive FIT. A fiber based bowel regimen for soft regular stools is recommended. Disposition: PACU
== END 2022-05-11 15:45 | disposition home or self-care (01) ==
PROVIDERS: PCP Family Medicine; Referring Provider Internal Medicine Gastroenterology; Visit Provider Internal Medicine Gastroenterology
PROC: 0DJD8ZZ Inspection of Lower Intestinal Tract, Via Natural or Artificial Opening Endoscopic (ICD-10-PCS; CPT 45378; principal; 2022-05-11 14:30)
DX: R19.5 Other fecal abnormalities (principal); J44.9 Chronic obstructive pulmonary disease, unspecified; E03.9 Hypothyroidism, unspecified; I10 Essential (primary) hypertension; K64.1 Second degree hemorrhoids; K57.30 Diverticulosis of large intestine without perforation or abscess without bleeding
CPT/HCPCS: 45378; J2704

== ENCOUNTER → 2022-07-29 13:44 | Outpatient (CLI) | payer MEDICARE, SELFPAY ==
--- NOTE | 2022-07-29 13:44 | DI.MG.S_ITS ---
BILATERAL DIGITAL SCREENING MAMMOGRAM 3D/2D WITH CAD: 07/29/2022 CLINICAL: Routine screening. Comparison is made to exams dated: 10/11/2020 mammogram, 05/17/2018 mammogram, 04/23/2018 mammogram, 10/05/2016 mammogram, and 09/29/2013 mammogram - [facility]. Both breasts are heterogeneously dense, which may obscure small masses (category c / 51-75% glandular tissue). Current study was also evaluated with a Computer Aided Detection (CAD) system. No significant masses, calcifications, or other findings are seen in either breast. There has been no significant interval change. IMPRESSION: NEGATIVE There is no mammographic evidence of malignancy. A 1 year screening mammogram is recommended. Based on the Tyrer Cuzick model (a risk assessment model) the patient's lifetime risk is 8.8% and her 10 year risk is 4.9%. According to the ACR, ACS, and NCCN guidelines, an annual breast MRI exam along with mammogram is recommended if the patient's lifetime risk is 20% or greater. This exam was interpreted at Station ID: [id number]. NOTE: For mammograms, a report in lay terms will be sent to the patient. Approximately 15% of breast malignancies will not be visualized mammographically. In the management of a palpable breast mass, a negative mammogram must not discourage biopsy of a clinically suspicious lesion. Electronically Signed By: Tavo gold/megan:07/29/2022 15:32:55 letter sent: Normal Exam ACR BI-RADS Category 1: Negative 3341F
== END ==
PROVIDERS: PCP Family Medicine; Referring Provider Family Medicine; Visit Provider Family Medicine
DX: Z12.31 Encounter for screening mammogram for malignant neoplasm of breast (principal)
CPT/HCPCS: 77063; 77067

== ENCOUNTER → 2022-10-22 07:58 | Outpatient (CLI) | payer MEDICARE, SELFPAY ==
[2022-10-22 10:08] LABS: Alanine Aminotransferase 25 IU/L (<35); Albumin 4.3 g/dL (3.5-5.0); Albumin Globulin Ratio 1.7 (1.0-2.8); Alkaline Phosphatase 78 U/L (38-126); Aspartate Aminotransferase 29 IU/L (14-36); Bilirubin Total 0.7 mg/dL (0.2-1.3); Blood Urea Nitrogen 15 mg/dL (7-17); Carbon Dioxide 31 mmol/L (22-32); Chloride 99 mmol/L (98-107); Estimated Glomerular Filt Rate > 60 mL/min (>60); Globulin 2.5 g/dL (1.7-4.1); Glucose 104 mg/dL (80-110); HEMOLYSIS < 15 (0-50); Potassium 3.4 mmol/L (3.4-5.1); Sodium 136 mmol/L (137-145); Total Protein 6.8 g/dL (6.3-8.2)
[2022-10-22 10:37] LABS: Thyroid Stimulating Hormone 0.058 uIU/mL (0.47-4.68)
== END ==
PROVIDERS: PCP Family Medicine; Referring Provider Family Medicine; Visit Provider Family Medicine
DX: E78.5 Hyperlipidemia, unspecified (principal); I10 Essential (primary) hypertension; R79.89 Other specified abnormal findings of blood chemistry
CPT/HCPCS: 36415; 80053; 84439; 84443

== ENCOUNTER → 2023-02-05 08:44 | Outpatient (CLI) | payer MEDICARE, SELFPAY ==
--- NOTE | 2023-02-05 | DI.CT.S_ITS ---
PROCEDURE: CT CHEST HIGH RESOLUTION INDICATIONS: Chronic obstructive pulmonary disease TECHNIQUE: Noncontrast 1.0 and 5.0 mm thick contiguous axial sections from the pulmonary apex to the posterior costophrenic angles, with 7 mm thick coronal and sagittal MIP reformats. 1 mm thick dynamic expiratory images acquired through the upper, mid, and lower lungs. 1.0 mm thick axial sections acquired from the naomi to the posterior costophrenic angles in the prone end-inspiration position. For radiation dose reduction, the following was used: automated exposure control, adjustment of mA and/or kV according to patient size. COMPARISON: [facility], CT, CHEST HIGH RESOLUTION, 02/12/2016, 12:16. FINDINGS: Image quality: Excellent. Lungs: Confluent centrilobular emphysema, most prominent in the lung bases. Lower lobe predominant air trapping. No reticulation. Diffuse bronchial thickening. Pleura: No pleural effusions or pneumothorax. Mediastinum: Heart size is normal. No pericardial effusion. Thoracic aorta and central pulmonary arteries are normal in size. Esophagus is normal in caliber. Moderate hiatal hernia. Bones and chest wall: No suspicious bony lesions. No vertebral body compression fractures. Abdomen: Fluid attenuating hepatic cyst. IMPRESSION: Diffuse centrilobular emphysema, worsened in the lung bases. Underlying alpha-1 antitrypsin disorder not entirely excluded, given atypical distribution. Consider congenital testing, as this could be passed to children. Dictated by: Peter Giles M.D. on 02/05/2023 at 11:08 Approved by: Peter Giles M.D. on 02/05/2023 at 11:20
== END ==
PROVIDERS: PCP Family Medicine; Referring Provider Internal Medicine Pulmonary Disease; Visit Provider Internal Medicine Pulmonary Disease
DX: J43.2 Centrilobular emphysema (principal)
CPT/HCPCS: 71250; 94060; 94618; 94726; 94729

== ENCOUNTER → 2023-03-16 09:45 | Outpatient (CLI) | payer MEDICARE, SELFPAY ==
--- NOTE | 2023-03-16 | DI.CT.S_ITS ---
PROCEDURE: CT HIP RIGHT WITHOUT CON INDICATIONS: RIGHT HIP POST TRAUMATIC OA TECHNIQUE: Noncontrast 3 mm axial sections acquired through the bony pelvis with coronal and sagittal reformats. Additional 3 mm axial sections acquired through the symptomatic hip joint, with coronal and sagittal reformats. COMPARISON: [facility], CR, XR PELVIS WITH LATERAL HIP RIGHT, 03/05/2023, 10:41. FINDINGS: Image quality: Excellent. Bones: Postsurgical changes are seen from prior right acetabular and right iliac bone fracture fixation with multiple metallic plate and screws. Residual chronic osseous deformities are noted throughout the right pelvis. Severe degenerative changes are seen at the right hip with full-thickness joint space narrowing, subchondral sclerosis, marginal osteophyte formation, and remodeling of the articular surfaces, and most notably at the femoral head and neck. Moderate axial joint space narrowing at the left hip with marginal osteophyte formation. Degenerative changes are seen in the included lumbar spine. Soft tissues: Moderate right hip effusion is seen with multiple large ossified intra-articular loose bodies surrounding the hip, the largest measures approximately 2.5 cm. There is fatty infiltration and mild enlargement of the right tensor fascia driss muscle. Focal fatty infiltration is seen within the included portion of the right adductor longus muscle. Multiple diverticula are seen in the colon without signs of acute diverticulitis. No acute abnormality is seen in the included pelvis. 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 IMPRESSION: 1. Postsurgical changes in the right acetabulum and right pelvis with residual chronic posttraumatic osseous deformity. 2. Severe degenerative changes in the right hip with remodeling of the articular surfaces. Moderate right hip effusion is seen with multiple large ossified intra-articular loose bodies. 3. Moderate left hip osteoarthrosis. Approved by: Mario Strong M.D. on 03/16/2023 at 11:29
== END ==
PROVIDERS: PCP Family Medicine; Referring Provider Orthopaedic Surgery; Visit Provider Orthopaedic Surgery
DX: M16.51 Unilateral post-traumatic osteoarthritis, right hip (principal); M16.12 Unilateral primary osteoarthritis, left hip; M25.451 Effusion, right hip; M24.051 Loose body in right hip
CPT/HCPCS: 73700

== ENCOUNTER → 2023-04-01 07:22 | Outpatient (CLI) | payer MEDICARE, SELFPAY ==
[2023-04-01 09:12] LABS: C-Reactive Protein Quant < 0.5 mg/dL (<1.0); Erythrocyte Sedimentation Rate 6 MM/HR (0-20)
== END ==
PROVIDERS: PCP Family Medicine; Referring Provider Orthopaedic Surgery Adult Reconstructive Orthopaedic Surgery; Visit Provider Orthopaedic Surgery Adult Reconstructive Orthopaedic Surgery
DX: Z01.812 Encounter for preprocedural laboratory examination (principal); R79.82 Elevated C-reactive protein (CRP)
CPT/HCPCS: 36415; 85651; 86140

== ENCOUNTER → 2023-04-28 12:57 | Outpatient (CLI) | payer MEDICARE, SELFPAY ==
[2023-04-28 14:04] LABS: Add Manual Diff / Slide Review NO; Basophils Absolute Auto 0 /uL (0-100); Basophils Percent Auto 0.4 % (0-2); Eosinophils Absolute Auto 100 /uL (0-450); Eosinophils Percent Auto 1.4 % (2-4); Hematocrit 38.1 % (36-46); Hemoglobin 12.9 g/dL (12.0-16.0); Lymphocytes Absolute Auto 1400 /uL (1100-4500); Lymphocytes Percent Auto 26.8 % (25-40); Mean Corpuscular Hemoglobin 29.3 PG (26-34); Mean Corpuscular Volume 86.4 fL (80-100); Monocytes Absolute Auto 600 /uL (0-900); Monocytes Percent Auto 11.2 % (3-14); Neutrophils Absolute Auto 3200 /uL (1500-7000); Neutrophils Percent Auto 60.2 % (50-75); Platelet Count 254 X10^3/uL (150-400); Red Blood Cell Count 4.41 X10^6/uL (4.0-5.2); Red Cell Distribution Width 13.1 % (11.6-14.8); White Blood Cell Count 5.3 X10^3/uL (4.5-11.0)
[2023-04-28 14:07] LABS: Hemoglobin A1C% w Est Avg Glu 5.7 % (4.0-6.0)
[2023-04-28 14:28] LABS: Blood Urea Nitrogen 18 mg/dL (7-17); Calcium 10.2 mg/dL (8.4-10.2); Carbon Dioxide 31 mmol/L (22-32); Chloride 97 mmol/L (98-107); Estimated Glomerular Filt Rate > 60 mL/min (>60); Glucose 106 mg/dL (80-110); HEMOLYSIS < 15 (0-50); Potassium 3.2 mmol/L (3.4-5.1); Sodium 137 mmol/L (137-145)
[2023-04-28 15:49] LABS: Vitamin D 25 Hydroxy (D3) 48.3 ng/mL (30.0-100.0)
== END ==
PROVIDERS: PCP Family Medicine; Referring Provider Orthopaedic Surgery Adult Reconstructive Orthopaedic Surgery; Visit Provider Orthopaedic Surgery Adult Reconstructive Orthopaedic Surgery
DX: Z01.818 Encounter for other preprocedural examination (principal); R77.0 Abnormality of albumin; R73.9 Hyperglycemia, unspecified; E55.9 Vitamin D deficiency, unspecified; Z01.812 Encounter for preprocedural laboratory examination
CPT/HCPCS: 36415; 80048; 82306; 83036; 84134; 85025; 93005

== ENCOUNTER → 2023-05-05 | Outpatient (CLI) | payer MEDICARE, SELFPAY ==
--- NOTE | 2023-05-05 | DI.RAD.S_ITS ---
PROCEDURE: XR DEXA AXIAL SKELETON INDICATIONS: DISPLACED FRACTURE OF POSTERIOR COLUMN COMPARISON: [facility], CR, XR DEXA AXIAL SKELETON, 10/11/2020, 10:06. FINDINGS: This blank DEXA report has been sent in error by the PACS system. The correct and complete report will be forthcoming in 1-2 days. Thank you for your patience and understanding. Dictated by: Dale Lobo M.D. on 05/05/2023 at 15:36 Approved by: Dale Lobo M.D. on 05/05/2023 at 15:37
--- NOTE | 2023-05-05 14:18 | DI.DEXA.S_ITS ---
Bone Density Report Name: ARIAN GILLIS Age: 67 Sex: Female Ethnicity: White Date of : 1955 Indication: postmenopausal; screening for osteoporosis; prior fracture; Referring Provider: JERMAINE NEIL Study: Bone densitometry was performed. Exam Date: May 05, 2023 Accession number: [id number] Bone Density: Region BMD T-score Z-score Classification AP Spine(L1, L3) 1.111 0.9 2.9 Normal Femoral Neck (Left) 0.768 -0.7 1.0 Normal Total Hip (Left) 0.886 -0.5 1.0 Normal Total Forearm (Left) 0.586 0.1 2.1 Normal 1/3 Forearm (Left) 0.731 0.6 2.6 Normal UD Forearm (Left) 0.403 -0.7 0.8 Normal World Health Organization criteria for BMD impression classify patients as: Normal (T-score at or above -1.0), Osteopenia (T-score between -1.0 and -2.5), or Osteoporosis (T-score at or below -2.5). 10-year Fracture Risk: FRAX not reported because: All T-scores for Spine Total, Hip Total, Femoral Neck at or above -1.0 Prior hip or vertebral fracture Previous Exams: -- Region Exam Age BMD T-score BMD Change BMD Change Date g/cm2 vs Baseline vs Previous -- AP Spine (L1,L3) 05/05/2023 67 1.111 0.9 -0.087 (-7.3%)# -0.087 (-7.3%)# 10/11/2020 64 1.199 1.7 Total Hip(Left) 05/05/2023 67 0.886 -0.5 0.005 (0.6%)# 0.005 (0.6%)# 10/11/2020 64 0.881 -0.5 -- *Denotes significance at 95% confidence level, LSC for AP Spine = 0.022 g/cm2, LSC for Total Hip = 0.027 g/cm2 # Denotes dissimilar scan types or analysis methods Impression: The patient has normal bone mass. The patient has risk factors, including: previous fracture. No significant bone loss was observed. Discussion: INCREASED RISK OF FRACTURE DUE TO HISTORY OF FRACTURE. The patient's previous fracture puts the patient at high risk of a future fracture. In untreated patients, the risk of osteoporotic fracture increases approximately two-fold for each 1.0 SD decrease in T-score. Low bone density is not the only risk factor for fracture; also consider factors such as patient's age, frailty or poor health, risk of falling, risk of injury, previous osteoporotic fracture, family history of osteoporosis, cigarette smoking, low body weight, etc. Not everyone with a low trauma fracture has osteoporosis; osteomalacia and other metabolic bone disorders should also be considered. Patients who have osteoporosis should be evaluated for specific diseases and conditions (secondary causes) that may cause or contribute to bone loss and fracture risk. National Osteoporosis Foundation (NOF) recommends pharmacologic intervention for patients with a prior hip or vertebral fracture regardless of BMD T-score. The patient should follow a healthful lifestyle (good nutrition with adequate calcium and vitamin D, and appropriate weight-bearing exercise). Follow-Up: Consider a repeat BMD and Vertebral Fracture Assessment (VFA) exam in 2 years or sooner if medically necessary, to reassess this patient's status. Reported by: STEPHEN ANDERSEN M.D. on 05/05/2023 2:51:00 PM.
== END ==
LOC: RAD 14:08
PROVIDERS: PCP Family Medicine; Referring Provider Orthopaedic Surgery Adult Reconstructive Orthopaedic Surgery; Visit Provider Orthopaedic Surgery Adult Reconstructive Orthopaedic Surgery
DX: Z78.0 Asymptomatic menopausal state (principal); S32.4 Fracture of acetabulum
CPT/HCPCS: 77080

== ENCOUNTER → 2023-05-13 09:32 | Outpatient (CLI) | payer MEDICARE, SELFPAY ==
[2023-05-13 11:27] LABS: Alanine Aminotransferase 21 IU/L (<35); Albumin 4.1 g/dL (3.5-5.0); Albumin Globulin Ratio 1.6 (1.0-2.8); Alkaline Phosphatase 68 U/L (38-126); Aspartate Aminotransferase 29 IU/L (14-36); BUN Creatinine Ratio 25.4 (6-22); Bilirubin Total 0.5 mg/dL (0.2-1.3); Blood Urea Nitrogen 18 mg/dL (7-17); Calcium 9.9 mg/dL (8.4-10.2); Carbon Dioxide 26 mmol/L (22-32); Chloride 97 mmol/L (98-107); Estimated Glomerular Filt Rate > 60 mL/min (>60); Globulin 2.5 g/dL (1.7-4.1); Glucose 110 mg/dL (80-110); HEMOLYSIS < 15 (0-50); Potassium 3.5 mmol/L (3.4-5.1); Sodium 132 mmol/L (137-145); Total Protein 6.6 g/dL (6.3-8.2)
== END ==
PROVIDERS: PCP Family Medicine; Referring Provider Nurse Practitioner; Visit Provider Nurse Practitioner
DX: Z01.812 Encounter for preprocedural laboratory examination (principal); E87.6 Hypokalemia
CPT/HCPCS: 36415; 80053

== ENCOUNTER → 2023-05-26 15:56 | Outpatient (CLI) | payer MEDICARE, SELFPAY ==
[2023-05-26 20:40] LABS: Influenza A - CEPHEID Flu A NEGATIVE (NEGATIVE); Influenza B - CEPHEID Flu B NEGATIVE (NEGATIVE); Respiratory Syncytial Virus Negative (Negative)
[2023-05-26 20:42] LABS: COVID-19 CEPHEID 4-PLEX PCR Negative (Negative)
== END ==
PROVIDERS: PCP Family Medicine; Visit Provider Physician Assistant
DX: R05.1 Acute cough (principal)
CPT/HCPCS: 0241U

== ENCOUNTER 2023-06-24 08:30 | Outpatient (RCR) | payer MEDICARE, SELFPAY | END 2023-06-24 10:30 | LOC: PUL 08:30 | PROVIDERS: PCP Family Medicine; Referring Provider Internal Medicine Pulmonary Disease; Visit Provider Internal Medicine Pulmonary Disease | DX: J44.9 Chronic obstructive pulmonary disease, unspecified (principal) | CPT/HCPCS: 94625; 94626 ==

== ENCOUNTER 2023-07-02 08:38 | Inpatient (IN) | payer MEDICARE, SELFPAY ==
[2023-06-17 13:06] VITALS: BMI 22.2
[2023-07-02] VITALS (27 sets, daily range): BP systolic 65–137; BP diastolic 35–85; PULSE 70–107; RESP 10–24; TEMP 35.9–37; O2SAT 95–100; BMI 22.2
[2023-07-02] MEDS: LACTATED RINGERS 1,000 ML 42 ML IV ×2 (08:53→12:28)
[2023-07-02] MEDS: ACETAMINOPHEN 325 MG TABLET 975 MG PO (09:24)
[2023-07-02] MEDS: MELOXICAM 7.5 MG TABLET PO (09:24)
[2023-07-02] MEDS: ALBUTEROL/IPRATROPIUM 3 ML AMPUL INH (10:14)
--- NOTE | 2023-07-02 10:38 | SUR.OPER ---
Supine on padded [place] table with bilateral legs secured in padded positioning boots and suspended in positioning spars, operative leg in traction per surgeon. Head on one pillow. Arms secured on padded armboard <90 degrees abduction. . Padded perineal post in place per surgeon.
--- NOTE | 2023-07-02 10:54 | PM.PREOP ---
Pre-operative Note Interval Note History & Physical reviewed/Exam performed by Physician: Yes Changes to H&P: No
[2023-07-02] MEDS: CEFAZOLIN 2 GM/100 ML PREMIX 100 ML IV ×2 (10:57→19:43)
--- NOTE | 2023-07-02 11:00 | DI.RAD.S_ITS ---
PROCEDURE: XR HIP W PEL IF DONE RT 2V INDICATIONS: INNER OP TECHNIQUE: 4 view(s) of the hip acquired intraoperatively. COMPARISON: [facility], CR, XR HIP W PEL IF DONE RT 2V, 04/22/2021, 8:30. FINDINGS: Patient is status post right hip arthroplasty, with hardware components in expected positions. IMPRESSION: Intraoperative images of right hip arthroplasty with prosthetic components in appropriate position. Please see separate operative report for full details. Approved by: Rochelle Escobar M.D. on 07/02/2023 at 15:25
[2023-07-02] MEDS: TRANEXAMIC ACID 1,000 MG VIAL 1000 MG INJ ×2 (11:25→14:02)
[2023-07-02] MEDS: ROPIVACAINE/EPI/CLONIDINE/KET 50 ML SYRINGE INJ (11:25)
[2023-07-02] MEDS: LACTATED RINGERS 1,000 ML 100 ML IV ×3 (14:15→18:54)
--- NOTE | 2023-07-02 14:30 | DI.RAD.S_ITS ---
PROCEDURE: XR HIP W PEL IF DONE RT 2V INDICATIONS: RIGHT ANTERIOR TOTAL HIP TECHNIQUE: AP pelvis and lateral view of the hip acquired. COMPARISON: [facility] [place], CR, XR PELVIS WITH LATERAL HIP RIGHT, 03/05/2023, 10:41. [facility], CT, CT HIP RIGHT WITHOUT CON, 03/16/2023, 9:47. [facility], CR, XR HIP W PEL IF DONE RT 2V, 07/02/2023, 12:00. [facility] [place], CR, XR PELVIS 1 OR 2 VIEWS, 03/31/2023, 10:21. FINDINGS: Bones: Patient is status post right hip arthroplasty, with hardware components in expected positions. The hip joint appears congruent. There are old right pelvic fractures with internal fixations. [id number] osteoarthritic changes of the left hip. Soft tissues: Overlying postoperative changes are noted. No suspicious soft tissue densities. IMPRESSION: Expected post-operative appearance of a hip arthroplasty. Dictated by: Laila Taylor M.D. on 07/02/2023 at 16:31 Approved by: Laila Taylor M.D. on 07/02/2023 at 16:33
--- NOTE | 2023-07-02 14:39 | P.OP_ITS ---
Operative Date/Time/Diagnoses Date of procedure: 07/02/23 Pre-op diagnosis: Posttraumatic right hip arthritis Post-op diagnosis: same Procedure & Clinicians Procedure: Conversion right total hip arthroplasty from prior acetabular open reduction internal fixation with removal of hardware Same procedure as scheduled: Yes Surgeon: Jeet White Sap Functional Analyst: Zeina Braswell Anesthesia Type: Spinal and Local Operative Notes Estimated Blood Loss (mL): 600 Blood products transfused: none Procedure in detail: Implants: Depuy Total Hip Arthroplasty: * Depuy [place] Gription size 66 multi hole cup with 4 screws * Depuy Actis femoral stem size 5 standard offset? * 36 mm +1.5 ceramic femoral head? Procedure Summary: This patient had posttraumatic arthritis following remote open reduction int ernal fixation of an acetabular fracture which was performed decades ago. There were numerous loose bodies present inside her hip capsule which were all removed following capsulotomy. She had significant acetabular wear which had significantly enlarged her socket. A 66 mm cup was necessary to obtain stability. Several screws and a portion of the old plate were encountered during reaming and were removed with a metal cutting bur. Multiple screws were placed through a multi hole cup in order to obtain stable cup fixation. Procedure in Detail: This patient was seen preoperatively and evaluated for hip pain which was refractory to numerous nonoperative treatment modalities. Their hip pain correlated with radiographic changes demonstrating significant degeneration in the hip joint. The risks and benefits of continued nonoperative management versus operative management were discussed at length and all of the patient?s questions were answered. Additional educational materials providing further details beyond our discussion in clinic were provided via a publicly available patient education video which included the incidence of medical complications associated with total hip arthroplasty, reasons for revision following total hip arthroplasty, and patient satisfaction rates following total hip arthroplasty. That video can be accessed at [email or web address] . With this understanding of the risks inherent to the procedure, the patient elected to move forward with operative management. Following preoperative optimization, the patient was scheduled for surgery. The patient was met in the preoperative holding area the day of the procedure and all questions were answered. The patient?s nares were swabbed with betadine in order to decolonize them from MRSA. Informed consent was signed and the operative limb was marked with indelible ink.? The patient was brought back to the operating room where anesthesia was induced. The patient was transferred to the [place] table and all bony prominences were padded. The operative site was prepped and draped in the usual sterile fashion. Prior to incision, tranexamic acid and cefazolin were administered. Operative templating images were displayed demonstrating the anticipated implant sizes and correct operative extremity. A timeout procedure was performed verifying the patient?s identity, medical comorbidities, allergies, relevant medications, anesthesia type and the surgical plan. All present were in agreement. The assistance of a physician client services assistant was required for positioning, room setup, soft tissue retraction and wound closure. Without this assistance, the procedure would have been significantly more challenging and time consuming.?? A direct anterior approach to the hip was utilized. This was performed with a longitudinal incision through a Heuter interval. The incision was planned 2 cm distal and 2 cm lateral to the ASIS extending towards the lateral patella, in line with the muscle body of the TFL. Following incision, the subcutaneous tissue was dissected while taking care to avoid injury to the lateral femoral cutaneous nerve. The fascia overlying the TFL was identified by dissecting off the overlying fat and identifying perforating vessels to the TFL. The TFL fascia was incised and dissected away from the medial border of the TFL. A cobra retractor was placed over the superior femoral neck between the abductors and the hip capsule and used to reflect the TFL laterally. A Barnwell self-retainer was then placed in the distal aspect of the wound between the TFL and the rectus femoris. This was tensioned to open up the direct anterior interval and the lateral circumflex vessels were identified and coagulated using electrocautery. The floor of the TFL fascia was incised, exposing the pericapsular fat overlying the hip capsule. A second cobra retractor was placed on the inferior femoral neck. A double-bent soft tissue retractor was placed on the anterior wall of the acetabulum and used to tension the reflected head of rectus femoris, which was then released in order to limit soft tissue tension. A capsulotomy was made in the midline of the anterior hip capsule in line with the femoral neck ending at the vastus tubercle. The double-bent retractor was removed in order to limit the amount of time that a soft tissue retractor remained on the anterior wall and protect the femoral nerve. Tag stitches were placed in the superior and inferior leaflets of the hip capsule. An Bernardo soft tissue retractor was introduced over the tag stitches and tensioned in the interval between the rectus femoris and the TFL in order to retract and protect those muscles. The cobra retractors were replaced intracapsularly, with one over the superior neck in the pocket created by the base of the greater trochanter and the other on the femoral head. The capsulotomy was extended laterally to the base of the greater trochanter and medially to the lesser trochanter. This required externally rotating the hip. During this process multiple loose bodies were encountered within the capsule and excised. Once the lesser trochanter had been identified, a neck cut was planned according to measurements from preoperative templating. A ruler was cut at the length measured between the superior aspect of the lesser trochanter and the collar of the prosthesis. This line was extended towards the inferior aspect of the lateral cobra retractor to plan a cut which would leave minimal residual femoral neck laterally. The neck was cut at 60 degrees of external rotation along that line. A second cut was performed to remove a large napkin ring and facilitate head extraction. The napkin ring cut and femoral head were removed.??This revealed additional loose bodies which were likewise incised. A broad anterior wall retractor was placed between the labrum and the anterior capsule so that the anterior capsule would prevent capturing and pinching the femoral nerve anteriorly. An additional retractor was placed on the posterior wall. External rotation and traction were applied through the [place] table so that the cut surface of the femoral neck would not restrict access to the acetabulum. The labrum was completely calcified and was removed with a rongeur and the pulvinar was excised with electrocautery to limit bleeding from branches of the obturator artery. Acetabular reamers were selected based on preoperative templating and measurements of the excised femoral head. These were introduced into the acetabulum. Fluoroscopy was utilized to replicate a standing AP pelvis radiograph by centering over the pelvis, rotating until there was appropriate symmetry between the obturator foramen, and introducing caudal tilt to match the position of the pubic symphysis relative to the sacrococcygeal junction according to the patient?s anatomy. Fluoroscopy was utilized to ensure appropriate reaming depth. During the reaming process several screws and a portion of the old acetabular plate were encountered. These were removed using a metal cutting bur. The screws left well contained defects and there was adequate anterior and posterior wall. Once satisfied with the reaming depth corresponding to the preoperative template and the pinch fit between the columns, an appropriate sized acetabular cup was selected which would provide 1 mm of press-fit. This cup was introduced and manipulated until appropriate abduction and anteversion angles were obtained with careful attention to evan ropriate abduction and anteversion angles as evaluated by the position of the cup relative to the anterior and posterior christine of the acetabulum and the AP fluoroscopy which recreated the patient?s standing radiograph. The cup was impacted into place. Multiple screws were utilized to provide fixation to the pelvis. Peripheral osteophytes were removed. The acetabular liner was then placed with care to ensure locking of the locking mechanism.? Attention was then turned to the femur. All retractors were removed, traction was released, a retractor was placed in the interval between the hip capsule and the gluteus minimus, and the hip was externally rotated to 90 degrees. Traction was applied through the [place] table to tension the lateral capsule and this was released using electrocautery. Traction was released and a [place] hook was placed posteriorly around the proximal femur at the level of the vastus ridge. The table height was lowered in order to restrict the tension on the anterior st ructures during hip hyperextension to limit the risk of femoral nerve palsy. With traction off and the hip at 90 degrees of external rotation, the hip was hyperextended and adducted while manually elevating the femur away from the acetabulum with the [place] hook to ensure it would not be caught behind the greater trochanter. An asymmetric retractor was placed over the calcar and a broad double-pronged retractor was placed over the greater trochanter. The tag stitch capturing the lateral leaflet of the capsule was moved to the medial side, leaving the conjoined and piriformis tendons isolated in the face of the greater trochanter. The hip was externally rotated and elevated. A release of the conjoined tendon was not necessary in order to obtain adequate exposure for broaching. The canal was opened with an opening broach and a rasp was used to remove cancellous bone. A rongeur was used to remove the residual lateral bone at the base of the greater trochanter to avoid placing the stem in varus. The femur was then broached to the appropriate sized stem yielding good rotational fit and fill of the canal as well as appropriate version of the stem trial. Neck and head trials were placed, all retractors were removed and the hip was returned to neutral abduction and extension. I then reduced the hip. An AP pelvis fluoroscopic image matching the preoperative standing radiograph was obtained with both lesser trochanters visible and both hips in 40 degrees of external rotation. This demonstrated that the operative side was slightly long and that offset was appropriate. An AP hip fluoroscopic image was obtained with the hip in neutral rotation which demonstrated good fill of the canal with the size 5 broach although it appeared that it could be sunk slightly lower. Hip stability was evaluated with 90 degrees of external rotation and a 45 degree drop test which demonstrated good stability. The hip was dislocated and I returned to the broaching position. I sank the size 5 broach slightly lower and repeated the calcar planing process to slightly shortened the construct. I again trialed with a +1.5 trial head and found appropriate leg length offset and stability using the same tests I had used before. The definitive stem was placed and the trunnion was cleaned and dried. I placed a ceramic head onto the trunnion and impacted it into place on the [place] taper.?? All retractors were removed and the hip was reduced. A dilute mixture of betadine and peroxide was used to bathe the soft tissues during final fluoroscopic assessment. Appropriate component positioning was confirmed on an AP pelvis radiograph with the operative and nonoperative legs in 40 degrees of external rotation, evaluating leg length and offset. Appropriate stem fill was evaluated on an AP hip radiograph with the operative leg in neutral rotation. No fractures were identified on these radiographs. Stability was satisfactory with a 90 degree external rotation test as well as a 45 degree drop test. The hip was copiously irrigated with pulse lavage. The capsule was closed with absorbable interrupted suture. The TFL fascia was closed with barbed suture while carefully protecting the lateral femoral cutaneous nerve from entrapment. A mixture of Ropivacaine, Epinephrine, Clonidine and Toradol was infiltrated throughout the soft tissues. The skin was closed with 2-0 and 3-0 sutures. Surgical glue was applied and a soft dressing was placed.??The sponge, instrument and needle counts were reported as being correct at the end of the case.??No obvious complications occurred. The patient was transferred from the [place] table back to a stretcher. The patient emerged from anesthesia without difficulty and was taken to the PACU in a stable condition.? Plan for aftercare: * Anterior hip precautions (refrain from simultaneous maximum external rotation and hyperextension of the hip) * Anticipate patient will remain in the hospital for at least a night for monitoring of her pulmonary status as she recently underwent pulmonary rehab * Transition from hospital gown to regular clothing immediately upon arrival on floor * Weightbearing as tolerated * Mobilization as soon as the patient has recovered from anesthesia. If physical therapists are unavailable at the time the patient is ready to ambulate, then nursing staff should help patient ambulate * Aspirin 81 twice per day for DVT prophylaxis * Multimodal pain regimen with no IV opioids ordered * Follow up at [facility] in 2 weeks * Detailed postoperative instructions available at [email or web address]
[2023-07-02] MEDS: ONDANSETRON 4 MG/2 ML INJ IV ×4 (14:50→23:34)
[2023-07-02 16:11] LABS: Hematocrit 25.7 % (36-46); Hemoglobin 8.7 g/dL (12.0-16.0); Mean Corpuscular HGB Conc 33.8 % (30-36); Mean Corpuscular Hemoglobin 29.2 PG (26-34); Mean Corpuscular Volume 86.3 fL (80-100); Platelet Count 193 X10^3/uL (150-400); Red Blood Cell Count 2.97 X10^6/uL (4.0-5.2); Red Cell Distribution Width 13.7 % (11.6-14.8); White Blood Cell Count 14.4 X10^3/uL (4.5-11.0)
--- NOTE | 2023-07-02 16:43 | PM.PN.1 ---
Subjective Subjective Interval history: Pt had HoTN in PACU. Treated with vasopressors as needed. Has had SBP 87-101 for the last 45 minutes, asymptomatic during this time, able to converse. SAB appears to be mostly worn off, no dulled sensation to temperature at any dermatome. Suspect HoTN related to intrathecal duramorph. Ok for pt to transfer upstairs, report given by RN to include ok with SBP>90 as long as asymptomatic and making urine. CBC checked and is acceptable. Surgeon made aware. Exam Vital Signs (past 8 hours): - 07/02/23 09:32 07/02/23 14:40 07/02/23 14:45 Temperature 97.2 F L 98.5 F Pulse Rate 89 100 H 101 H Respiratory Rate 24 14 12 Blood Pressure 137/85 83/42 L 65/35 L Pulse Oximetry 97 95 97 Oxygen Delivery Method Room Air Room Air Room Air 07/02/23 14:50 07/02/23 14:55 07/02/23 15:00 Temperature Pulse Rate 96 H 99 H 106 H Respiratory Rate 10 L 12 12 Blood Pressure 70/43 L 67/42 L 75/48 L Pulse Oximetry 96 95 96 Oxygen Delivery Method Room Air Room Air Room Air 07/02/23 15:04 07/02/23 15:08 07/02/23 15:13 Temperature Pulse Rate 96 H 103 H 104 H Respiratory Rate 10 L 12 12 Blood Pressure 79/49 L 89/52 L 86/54 L Pulse Oximetry 96 97 98 Oxygen Delivery Method Room Air Room Air Room Air 07/02/23 15:17 07/02/23 15:23 07/02/23 15:28 Temperature Pulse Rate 102 H 106 H 92 H Respiratory Rate 10 L 12 10 L Blood Pressure 88/46 L 77/50 L 95/54 L Pulse Oximetry 98 97 100 Oxygen Delivery Method Room Air Room Air Room Air 07/02/23 15:32 07/02/23 15:38 07/02/23 15:43 Temperature Pulse Rate 98 H 97 H 98 H Respiratory Rate 12 12 12 Blood Pressure 96/52 L 101/51 L 89/57 L Pulse Oximetry 100 97 99 Oxygen Delivery Method Room Air Room Air Room Air 07/02/23 15:48 07/02/23 15:52 07/02/23 15:56 Temperature Pulse Rate 107 H 97 H 100 H Respiratory Rate 13 12 14 Blood Pressure 89/63 L 87/59 L 94/48 L Pulse Oximetry 100 100 99 Oxygen Delivery Method Room Air Room Air Room Air 07/02/23 16:02 07/02/23 16:07 07/02/23 16:13 Temperature 98.0 F Pulse Rate 107 H 105 H 104 H Respiratory Rate 10 L 12 12 Blood Pressure 96/58 L 93/56 L 107/54 L Pulse Oximetry 99 100 100 Oxygen Delivery Method Room Air Room Air Room Air Oxygen Delivery Method Room Air Objective Labs 07/02/23 16:05 Labs: Laboratory Results - last 24 hr 07/02/23 16:05 WBC 14.4 H RBC 2.97 L Hgb 8.7 L Hct 25.7 L MCV 86.3 MCH 29.2 MCHC 33.8 RDW 13.7 Plt Count 193 PFSH Medical History (Updated 06/17/23 @ 14:12 by Magda Virgen RN) Easy bruisability Well adult exam Plantar warts Osteoarthritis (~1991) Shoulder pain Fractures (~1974) Chronic back pain Measles Chicken pox Vertigo Tinnitus Positive FIT (fecal immunochemical test) Right hip pain (01/2021) Depression (02/2019) Hypokalemia Post-menopause Serum calcium elevated Essential hypertension Migraine without aura or status migrainosus Fibromyalgia (~1989) History of iron deficiency anemia COPD (chronic obstructive pulmonary disease) with acute bronchitis Surgical History (Updated 06/17/23 @ 14:10 by Magda Virgen RN) Anesthesia History of hip surgery (~1974) Family History Father Diabetes mellitus Hypertension Hyperlipidemia Stroke Mother Cancer Brother Cancer Social History household members: none Smoking Status: Former smoker Tobacco: How many years used: 35 second hand exposure: No alcohol intake: current substance use type: marijuana
[2023-07-02] MEDS: ONDANSETRON 4 MG ODT SL (17:07)
--- NOTE | 2023-07-02 17:07 | PM.PN.1 ---
Subjective Subjective Interval history: Patient seen postoperatively on the floor. Has intact plantar flexion and dorsiflexion of her toes and ankle. Minimal pain in her hip. Able to tolerate mild hip range of motion. Dressing is clean dry and intact. She is having a fair amount of nausea. Have ordered oral dissolving Zofran tablets for her. If she continues having difficulty with nausea I will add in a dose of dexamethasone later this evening Exam Vital Signs (past 8 hours): - 07/02/23 09:32 07/02/23 14:40 07/02/23 14:45 Temperature 97.2 F L 98.5 F Pulse Rate 89 100 H 101 H Respiratory Rate 24 14 12 Blood Pressure 137/85 83/42 L 65/35 L Pulse Oximetry 97 95 97 Oxygen Delivery Method Room Air Room Air Room Air 07/02/23 14:50 07/02/23 14:55 07/02/23 15:00 Temperature Pulse Rate 96 H 99 H 106 H Respiratory Rate 10 L 12 12 Blood Pressure 70/43 L 67/42 L 75/48 L Pulse Oximetry 96 95 96 Oxygen Delivery Method Room Air Room Air Room Air 07/02/23 15:04 07/02/23 15:08 07/02/23 15:13 Temperature Pulse Rate 96 H 103 H 104 H Respiratory Rate 10 L 12 12 Blood Pressure 79/49 L 89/52 L 86/54 L Pulse Oximetry 96 97 98 Oxygen Delivery Method Room Air Room Air Room Air 07/02/23 15:17 07/02/23 15:23 07/02/23 15:28 Temperature Pulse Rate 102 H 106 H 92 H Respiratory Rate 10 L 12 10 L Blood Pressure 88/46 L 77/50 L 95/54 L Pulse Oximetry 98 97 100 Oxygen Delivery Method Room Air Room Air Room Air 07/02/23 15:32 07/02/23 15:38 07/02/23 15:43 Temperature Pulse Rate 98 H 97 H 98 H Respiratory Rate 12 12 12 Blood Pressure 96/52 L 101/51 L 89/57 L Pulse Oximetry 100 97 99 Oxygen Delivery Method Room Air Room Air Room Air 07/02/23 15:48 07/02/23 15:52 07/02/23 15:56 Temperature Pulse Rate 107 H 97 H 100 H Respiratory Rate 13 12 14 Blood Pressure 89/63 L 87/59 L 94/48 L Pulse Oximetry 100 100 99 Oxygen Delivery Method Room Air Room Air Room Air 07/02/23 16:02 07/02/23 16:07 07/02/23 16:13 Temperature 98.0 F Pulse Rate 107 H 105 H 104 H Respiratory Rate 10 L 12 12 Blood Pressure 96/58 L 93/56 L 107/54 L Pulse Oximetry 99 100 100 Oxygen Delivery Method Room Air Room Air Room Air Oxygen Delivery Method Room Air Objective Labs 07/02/23 16:05 Labs: Laboratory Results - last 24 hr 07/02/23 16:05 WBC 14.4 H RBC 2.97 L Hgb 8.7 L Hct 25.7 L MCV 86.3 MCH 29.2 MCHC 33.8 RDW 13.7 Plt Count 193 PFSH Medical History (Updated 06/17/23 @ 14:12 by Magda Virgen RN) Easy bruisability Well adult exam Plantar warts Osteoarthritis (~1991) Shoulder pain Fractures (~1974) Chronic back pain Measles Chicken pox Vertigo Tinnitus Positive FIT (fecal immunochemical test) Right hip pain (01/2021) Depression (02/2019) Hypokalemia Post-menopause Serum calcium elevated Essential hypertension Migraine without aura or status migrainosus Fibromyalgia (~1989) History of iron deficiency anemia COPD (chronic obstructive pulmonary disease) with acute bronchitis Surgical History (Updated 06/17/23 @ 14:10 by Magda Virgen RN) Anesthesia History of hip surgery (~1974) Family History Father Diabetes mellitus Hypertension Hyperlipidemia Stroke Mother Cancer Brother Cancer Social History household members: none Smoking Status: Former smoker Tobacco: How many years used: 35 second hand exposure: No alcohol intake: current substance use type: marijuana Quality VTE Deep Vein Thrombosis/Pulmonary Embolism Present on Admission: No
--- NOTE | 2023-07-02 18:42 | PC.NURSE ---
Patient arrived to Room 216 at 1650 this afternoon. A&OX4, but feeling nauseated. She has +CMS to BLE's. Aquacel to anterior R hip c/d/i. She is evaluated by MD White at bedside. Large ice bag to R Hip, IVF LR at 100ml, hr, encouraged IS, SCD's on,purewick in place, call light in reach, bed alarm on. VSS, afebrile on RA. She reports pain level 1/10. Due to void at 1930. Per MUSIC TYPOGRAPHER she received 4 Liters IVF, EBL 600. In PACU bladder scan <100 ml. Continuous monitoring.
[2023-07-02] MEDS: DEXAMETHASONE 4 MG/ML VIAL IV (19:29)
[2023-07-02] MEDS: ACETAMINOPHEN 325 MG TABLET 650 MG PO (23:36)
[2023-07-02] MEDS: IBUPROFEN 600 MG TABLET PO (23:37)
[2023-07-02] MEDS: ASPIRIN EC 81 MG TABLET PO (23:37)
[2023-07-03] VITALS (10 sets, daily range): BP systolic 100–125; BP diastolic 50–68; PULSE 70–122; RESP 16–20; TEMP 36.1–37.4; O2SAT 96–99
[2023-07-03] MEDS: CEFAZOLIN 2 GM/100 ML PREMIX 100 ML IV (03:30)
[2023-07-03] MEDS: ACETAMINOPHEN 325 MG TABLET 650 MG PO ×3 (05:37→17:51)
[2023-07-03] MEDS: IBUPROFEN 600 MG TABLET PO ×3 (05:39→17:50)
[2023-07-03 06:40] LABS: Hemoglobin 6.9 g/dL (12.0-16.0)
[2023-07-03 06:41] LABS: Hematocrit 20.5 % (36-46)
[2023-07-03] MEDS: ONDANSETRON 4 MG ODT PO (09:17)
[2023-07-03] MEDS: OXYCODONE IR 5 MG TABLET PO ×2 (09:17→17:54)
[2023-07-03] MEDS: DOCUSATE 100 MG CAPSULE PO ×2 (09:17→21:02)
[2023-07-03] MEDS: SODIUM CHLORIDE 0.9% FLUSH 10 ML IV ×2 (09:17→21:03)
--- NOTE | 2023-07-03 09:25 | CM.DANOTE ---
Initial DCP Assessment Note Pt is a 67 yo female, resident of [facility], now POD#1 from Rt hup surgery by Dr White PCP: Korey Saenz Payer: MCR/ASHLEY Reviewed chart, met w/patient to introduce self, role and review discharge plan. Patient lives alone in her home on [facility], her spouse approx 2 years ago. Patient is indp in all aspects, drives. Patient's sister has traveled from [place] to assist patient x2 weeks during her recovery. Patient denies hx of HH or SNF. No barriers identified at this time to patient's safe discharge home w/family to assist; close outpatient f/u recommended. PT pending this morning. CM team will plan to follow closely in case any DC needs or concerns arise. JUSTYNA Valdez Discharge Planning/Care Management CM Discharge Assessment Start: 07/03/23 08:54 Freq: Status: Active Protocol: Document 07/03/23 08:54 ISAEL (Rec: 07/03/23 09:25 ISAEL [id number]) Discharge Planning Assessment Assigned Pca JUSTYNA Mccrary DPOA/Assigned Designee Name Hosea Farmer, sister ([place], [place] ) Contact Information [phone] Advance Directives? No History Provided By Patient Prior Living Arrangements House Household Members none Type of transporation used prior to Drives own vehicle admit Independent with ADL's Yes Is patient alert and oriented? Yes Patient/Family Preference OP PT Therapy Barriers to Discharge No Comment Pending therapy Discharge Plan Home Transportation Arrangement Family Referrals Initiated None needed
--- NOTE | 2023-07-03 10:57 | PM.PNPO.1 ---
Subjective Subjective Interval history: Patient is found sitting up in her bed. States that last night when she went to set set up she noticed increased sweating and nausea. She was given antinausea medication and a pain reliever, over time the symptoms did resolve. She has not yet worked with physical therapy adue to hematocrit and hemoglobin levels. She denies any fever or chills. Denies any drainage coming from the wound site. Currently denies any headache or blurry vision. She has been performing her leg exercises in bed. Exam Vital Signs (past 8 hours): - 07/03/23 03:00 07/03/23 09:09 Temperature 97.0 F L 99.4 F Pulse Rate 70 106 H Respiratory Rate 17 18 Blood Pressure 115/68 118/50 L Pulse Oximetry 96 96 Oxygen Flow Rate 0 Oxygen Delivery Method Room Air Oxygen Flow Rate 0 Narrative Exam Narrative: Dressing appears clean dry intact. Able to dorsiflex and plantar flex against resistance at the ankle bilaterally. Light sensation is grossly intact bilaterally. Resp Effort & Inspection: normal respiratory effort and able to speak in complete sentences Objective Labs 07/03/23 05:15 Labs: Laboratory Results - last 24 hr 07/02/23 07/03/23 07/03/23 16:05 05:15 07:00 WBC 14.4 H RBC 2.97 L Hgb 8.7 L 6.9 L* Hct 25.7 L 20.5 L* MCV 86.3 MCH 29.2 MCHC 33.8 RDW 13.7 Plt Count 193 Crossmatch See Detail [facility] Medical History (Updated 07/03/23 @ 11:25 by Quang Sandoval PA-C) Easy bruisability Well adult exam Plantar warts Osteoarthritis (~1991) Shoulder pain Fractures (~1974) Chronic back pain Measles Chicken pox Vertigo Tinnitus Positive FIT (fecal immunochemical test) Right hip pain (01/2021) Depression (02/2019) Hypokalemia Post-menopause Serum calcium elevated Essential hypertension Migraine without aura or status migrainosus Fibromyalgia (~1989) History of iron deficiency anemia COPD (chronic obstructive pulmonary disease) with acute bronchitis Surgical History (Updated 07/03/23 @ 11:26 by Quang Sandoval PA-C) Anesthesia History of hip surgery (~1974) Family History Father Diabetes mellitus Hypertension Hyperlipidemia Stroke Mother Cancer Brother Cancer Social History household members: none Smoking Status: Former smoker Tobacco: How many years used: 35 second hand exposure: No alcohol intake: current substance use type: marijuana Assessment & Plan Post-op Assessment and plan (1) Anemia: Assessment and Plan narrative: Discuss findings with Dr. White. Due to hospital protocol H&H levels need to be elevated before the patient is to be ambulated with guidance of hospital staff. Therefore we ordered 1 unit of blood follow up with H&H. (2) Status post total hip replacement, right: Assessment and Plan narrative: Continue with postoperative protocols. Multimodal pain relief. Start working with physical therapy once H&H has stabilized. Postoperative Procedures: Procedures Operation Date: 07/02/23 10:45 Actual Procedure Side Surgeon p Total Hip Arthroplasty Anterior, HARDWARE REMOVAL Right Jeet White MD Postoperative day: 1 Postoperative status: anemia Postoperative plan: routine post-op care Quality VTE Deep Vein Thrombosis/Pulmonary Embolism Present on Admission: No
[2023-07-03] MEDS: ASPIRIN EC 81 MG TABLET PO ×2 (12:23→21:02)
--- NOTE | 2023-07-03 12:32 | PT-IP ANOTE ---
Pt eval recieved and EMR reviewed. pt with Hgb of 6.9 and Hct of 20.5. Talked with nurse and stated that pt will be receiving transfusion. PT on hold at this time. will f/u.
[2023-07-03 16:04] LABS: Hematocrit 23.8 % (36-46)
[2023-07-03] MEDS: POTASSIUM CHLORIDE 10 MEQ TAB PO (17:51)
[2023-07-03] MEDS: SUMAtriptan 25 MG TABLET 100 MG PO (17:57)
--- NOTE | 2023-07-03 18:39 | PC.NURSE ---
Blood transfusion completed. Pt reports she already feels better, still has a headache but not as bad. Pain is mostly headache and neck pain. No sxs of blood transfusion reaction. Hip is not painful. She was given scheduled tylenol/ibuprofen as well as oxy and some imatrex. BP better and not as tachy, low grade temp is gone for now. Resting in bed, she feels exhausted by everything. Cont w/poc.
[2023-07-03] MEDS: IPRATROPIUM 0.5 MG/2.5 ML NEB INH (19:34)
[2023-07-03] MEDS: MELATONIN 3 MG TABLET 6 MG PO (21:03)
[2023-07-04] VITALS (9 sets, daily range): BP systolic 80–156; BP diastolic 59–90; PULSE 74–110; RESP 16–20; TEMP 36.2–37; O2SAT 95–98
--- NOTE | 2023-07-04 01:14 | PC.NURSE ---
Patient is alert and oriented. Breath sounds CTA with RA sat of 96%. HRR but tachy at 102. BP improved from previous shift but since BP soft on day shift and BP was 125/63 patient agreeable to having Clonidine held tonight. Denied nausea at time of assessment. BT present and is passing flatus. Has external catheter although discussed having patient get up to [facility] [place] but she declines and requested external catheter again. Is able to move herself in bed. Assisted to get up to chair with 2 assists + walker and sat up for around an hour and then assisted back into bed; declined to go for walk due to being tired. Aquacel dressing to right anterior hip is CDI. CMS intact except was unable to lift leg off bed more than a couple inches. Initially stated pain was 4/10 but declined pain medication and scheduled tylenol/ibuprofen not given at 2345 as patient was asleep. Is wearing bilateral calf SCD's. Fall risk score is high and bed alarm is activated.
[2023-07-04] MEDS: IBUPROFEN 600 MG TABLET PO ×3 (06:29→17:30)
[2023-07-04] MEDS: ACETAMINOPHEN 325 MG TABLET 650 MG PO ×3 (06:30→17:30)
[2023-07-04] MEDS: LEVOTHYROXINE 112 MCG TABLET PO (06:36)
[2023-07-04] MEDS: IPRATROPIUM 0.5 MG/2.5 ML NEB INH ×2 (07:43→19:39)
[2023-07-04] MEDS: polyethylene glycoL 3350 17 GM POWD.PACK PO (08:52)
[2023-07-04] MEDS: ASPIRIN EC 81 MG TABLET PO ×2 (08:52→20:23)
[2023-07-04] MEDS: DOCUSATE 100 MG CAPSULE PO (08:52)
[2023-07-04] MEDS: POTASSIUM CHLORIDE 10 MEQ TAB PO ×2 (08:52→17:30)
[2023-07-04] MEDS: ONDANSETRON 4 MG ODT PO ×2 (09:08→17:33)
[2023-07-04] MEDS: SODIUM CHLORIDE 0.9% FLUSH 10 ML IV ×2 (09:57→20:24)
[2023-07-04 10:31] LABS: Hematocrit 23.5 % (36-46); Hemoglobin 8.1 g/dL (12.0-16.0)
--- NOTE | 2023-07-04 12:18 | PT.IIE ---
Current Diagnoses Anemia, unspecified (07/02/23) Unilateral primary osteoarthritis, right hip (07/02/23) Presence of right artificial hip joint (07/02/23) Surgery Performed Operation Date: 07/02/23 10:45 Actual Procedures p Total Hip Arthroplasty Anterior, HARDWARE REMOVAL(Right) - Jeet White MD Surgical History (Last Updated 06/17/23 @ 14:10 by Magda Virgen RN) Anesthesia History of hip surgery (~1974) Medical History (Last Updated 06/17/23 @ 14:12 by Magda Virgen RN) Chicken pox Chronic back pain COPD (chronic obstructive pulmonary disease) with acute bronchitis Depression (02/2019) Easy bruisability Essential hypertension Fibromyalgia (~1989) Fractures (~1974) History of iron deficiency anemia Hypokalemia Measles Migraine without aura or status migrainosus Osteoarthritis (~1991) Plantar warts Positive FIT (fecal immunochemical test) Post-menopause Right hip pain (01/2021) Serum calcium elevated Shoulder pain Tinnitus Vertigo Well adult exam Physical Therapy Inpatient Evaluation/Re-Eval M1 PT/OT-IP Prior Functional Status Start: 07/04/23 08:44 Freq: NEEDED Status: Active Protocol: Document 07/04/23 11:50 MB (Rec: 07/04/23 12:17 MB [id number]) Medical Review Prior Functional Status Medical History Reviewed Yes Diet/Fluid Consistency Regular Communication WNLs Mobility and Gait I to mod I with LRAD Activities of Daily Living and IADL's I Social History Household Members none Living Arrangements House Number of Floors (Floors) One Floor Number of Stairs To Enter/Railing? 4 steps with two wide rails to enter Home Environment Standard Height Toilet Home Equipment Front Wheel Walker,Straight Cane,Grab Bars Near Toilet Employment Status Retired Additional Social History Comment Transport chair M2 PT-IP Current Condition Start: 07/04/23 08:44 Freq: NEEDED Status: Active Protocol: Document 07/04/23 11:50 MB (Rec: 07/04/23 12:18 MB [id number]) Physical Therapy Current Condition Current Condition Evaluation Date 07/04/23 Treatment Diagnosis Right anterior hip replacement s/p old ORIF M3 PT-IP Subjective Start: 07/04/23 08:44 Freq: NEEDED Status: Active Protocol: Document 07/04/23 11:50 MB (Rec: 07/04/23 12:12 MB [id number]) Subjective Physical Therapy Visit Type Type Initial Evaluation Visit Start Time 11:50 Visit Stop Time 12:06 Total Visit Minutes 16 Number of CAMPAIGN CONSULTANT Visits 0 Physical Therapy Visit Comments Patient Comments Pt is excited about PT. Therapy Pain Assessment Pain When Pain Assessed At Rest Pain Present Pain Present Denied Pain M4 PT-IP Mobility and Gait Start: 07/04/23 08:44 Freq: NEEDED Status: Active Protocol: Document 07/04/23 11:50 MB (Rec: 07/04/23 12:12 MB [id number]) PT-Bed Mobility Assessment Supine to Sit Supine to Sit Standby Assistance,Bedrails Sit to Supine Sit to Supine Standby Assistance,Bedrails Scooting Scooting to Edge of Bed Standby Assistance PT-Transfer Assessment Sit to and From Stand Sit to and from Stand Contact Guard Assistance,1 Person Assistance,Use of Upper Extremities Equipment Transfer Assistive Device Gait Belt,Front Wheeled Walker Orthotic/Prosthetic Devices or Brace: No Transfers Transfer Destination Bed Transfer Technique Ambulation Transfer Ability Level of Assist Contact Guard Assistance,1 Person Assistance,Use of Upper Extremities Comments Mobility Comments Pt requires cues for hand placement as she tends to reach for walker and hold onto it for STS transfers. Orthostatic assessment with BP and HR in RUE: semi-recumbent in the chair: 121/67. 106; standing 116/69, 123; standing 126/42, 117. Gait Assessment Gait Gait Assistance Required: Contact Guard Assist Distance (Feet) 15 Able to Maintain Weight Bearing Status Yes During Gait Assistive Devices Assistive Device Gait Belt,Front Wheeled Walker Orthotic/Prosthetic Devices or Brace: No Gait Deviations General Gait Pattern Antalgic,Decreased Stride Length,Flexed Trunk,Step-to Gait Factors Limiting Gait Function Factors Limiting Gait Function Decreased Strength,Poor Balance,Poor Safety Awareness Comments Gait Comments Pt gait trains 15' around the bed with RW and CGA. After bed mobility check and getting back to feet, pt states that she feels light-headed and needs to sit and then feels nauseated. PT attempts to check BP again and cuff blows off. Checked again in supine with BP and HR in LUE: 122/70, 108. Nsg to set-up IV to assist with fluid intake. PT-Balance Assessment Sitting Balance and Reactions Static Sitting Balance Ability Good Dynamic Sitting Balance Ability Good Standing Balance and Reactions Static Standing Balance Ability Fair Dynamic Standing Balance Ability Fair Device Used RW M5 PT-IP Objective Assessments Start: 07/04/23 08:44 Freq: NEEDED Status: Active Protocol: Document 07/04/23 11:50 MB (Rec: 07/04/23 12:12 MB [id number]) Orientation Orientation/Cognition Level of Alertness Alert Orientation Name,Age,Birthday,Month,Date, Year,Day of Week,Place, Situation Language Function Ability No Deficits Noted Safety Awareness Understands Safety Issues Memory Description No Deficits Noted Gross Range of Motion Upper Extremity ROM Assessment Within Functional Limits Lower Extremity ROM Assessment Right Impaired Strength Upper Extremity Strength Assessment Within Functional Limits Lower Extremity Strength Assessment Right Impaired Comments Strength Comments MMT deferred post-op with right ankle and knee grossly WNLs M6 PT-IP Treatment Start: 07/04/23 08:44 Freq: NEEDED Status: Active Protocol: Document 07/04/23 11:50 MB (Rec: 07/04/23 12:12 MB [id number]) Physical Therapy Treatment Education Education Provided Precautions,Weight Bearing Status,Post-Op Packet,Safety M7 PT-IP Assessment and Plan Start: 07/04/23 08:44 Freq: NEEDED Status: Active Protocol: Document 07/04/23 11:50 MB (Rec: 07/04/23 12:16 MB [id number]) PT Summary Assessment and Plan Potential Rehabilitation Potential Good Status of Condition at Evaluation Evolving Summary Impairments Strength,Balance,Bed Mobility, Transfers,Gait,Activity Tolerance Progress Towards Goals Slow Progress due to Medical Issues Assessment Summary Pt is a pleasant lady post-op right anterior hip replacement s/p old right ORIF after hip fracture. Pt is light-headed with mobility on evaluation date and while her BP only drops a small amount with orthostatic testing, she is very symptomatic once trying bed mobility and getting back up. She requires return to sitting and then supine. Pt is has postural tachycardia as well. She will benefit from ongoing acute and post-acute PT to improve bed mobility, transfers, and gait. Recommend getting up with nsg and ongoing orthostatic assessment . Sister is going to assist pt at d/c. Goals Bed Mobility Goal Independent Transfer Goal Independent,Front Wheeled Walker Gait Goal Independent,Front Wheel Walker Gait Distance 100 Other Goals Pt will ascend and descend 4 steps with rail of choice and no more than superv assistance to allow safe home entrance. Progress to LRAD and increase gait distance as appropriate. Days to Meet Goals 4 Frequency of Treatment Frequency Of Treatment Twice a Day Treatment Plan Physical Therapy Treatment Plan Bed Mobility Training,Transfer Training,Gait Training, Therapeutic Exercise,Balance Retraining,Post Op Education, Hot or Cold Pack Precautions Anterior Hip Precautions No Hip Extension,No Hip External Rotation Weight Bearing Status Weight Bearing Status Weight Bear as Tolerated Recommendations To Nursing Amount of Assist Needed 1 Person Assist Discharge Recommendations PT Discharge Recommendations Home with 18/01 Assist Available Other Discharge Recommendations HH vs OPPT Transportation Needs at Discharge Private Vehicle
--- NOTE | 2023-07-04 12:59 | P.DS_ITS ---
History of Present Illness History of Present Illness Chief complaint: INPT Narrative: Patient admitted to the hospital following conversion right total hip arthroplasty from prior open reduction internal fixation of acetabulum remotely. Underwent partial hardware removal with placement of a multi hole cup and an uncemented stem. Discharge Providers Provider Date of admission: 07/02/23 08:38 Discharge Date: 07/04/23 Primary care physician: Korey Saenz DO Consults: 06/17/23 15:01 Consult to Anesthesiology Routine Comment: Consulting Provider: Anesthesiologist Reason for consultation: PAC courtesy re: Pulmonary history 07/02/23 06:00 Consult to Anesthesiology Routine Comment: Consulting Provider: Anesthesiologist Reason for consultation: Regional block for post operative pain control 07/02/23 17:43 Consult to Discharge Planning Routine Comment: Consult to Physical Therapy Evaluate & Treat Comment: Physician Instructions: post op TOMAS protocol Discharge provider: Jeet White MD Summary Hospital Course Discharge Diagnosis: Status post right total hip arthroplasty Hospital Course: Patient's inpatient course was prolonged secondary to postoperative anemia. She had a hemoglobin of 6.9 which corrected to 8.1 following transfusion of a unit of packed red blood cells. She has a history of pulmonary issues and received respiratory therapy while inpatient. She did not have any pulmonary complications. She had had some symptomatic orthostatic hypotension however this resolved prior to discharge. Exam Vital Signs (past 8 hours): - 07/04/23 07:43 07/04/23 08:38 07/04/23 09:20 Temperature 97.7 F Pulse Rate 94 H 110 H Respiratory Rate 16 20 Blood Pressure 126/73 Blood Pressure [Orthostatic Lying] 125/61 Blood Pressure [Orthostatic Sitting] 80/59 L Pulse Oximetry 96 96 Oxygen Delivery Method Room Air Oxygen Flow Rate 0 07/04/23 09:54 07/04/23 09:54 07/04/23 11:15 Temperature 97.2 F L Pulse Rate 76 Respiratory Rate 20 Blood Pressure 80/59 L 80/59 L 136/65 Blood Pressure [Orthostatic Lying] Blood Pressure [Orthostatic Sitting] Pulse Oximetry 98 Oxygen Delivery Method Oxygen Flow Rate 0 Oxygen Delivery Method Room Air Oxygen Flow Rate 0 Narrative Exam Narrative: Right lower extremity examination: Dressing clean dry and intact. Mild ecchymosis in the thigh. Flexes and extends hallux and ankle. Foot warm and well perfused Objective Labs 07/04/23 10:23 Labs: Laboratory Results - last 24 hr 07/03/23 07/03/23 07/04/23 07:00 16:00 10:23 Hgb 8.0 L 8.1 L Hct 23.8 L 23.5 L Crossmatch See Detail [facility] Medical History (Updated 07/03/23 @ 11:25 by Quang Sandoval PA-C) Easy bruisability Well adult exam Plantar warts Osteoarthritis (~1991) Shoulder pain Fractures (~1974) Chronic back pain Measles Chicken pox Vertigo Tinnitus Positive FIT (fecal immunochemical test) Right hip pain (01/2021) Depression (02/2019) Hypokalemia Post-menopause Serum calcium elevated Essential hypertension Migraine without aura or status migrainosus Fibromyalgia (~1989) History of iron deficiency anemia COPD (chronic obstructive pulmonary disease) with acute bronchitis Surgical History (Updated 07/03/23 @ 11:26 by Quang Sandoval PA-C) Anesthesia History of hip surgery (~1974) Family History Father Diabetes mellitus Hypertension Hyperlipidemia Stroke Mother Cancer Brother Cancer Social History household members: none Smoking Status: Former smoker Tobacco: How many years used: 35 second hand exposure: No alcohol intake: current substance use type: marijuana Discharge Plan Discharge Plan Patient Disposition: Home Provider Discharge Comment: Detailed postoperative instructions at: [email or web address] Discharge orders & Medications Prescriptions: Continued chlorthalidone 25 mg tablet See Rx Instructions .ROUTE .COMPLEX Qty: 90 2RF Dose Instruction: TAKE 1 TABLET BY MOUTH DAILY Rx Instructions: TAKE 1 TABLET BY MOUTH DAILY levothyroxine 112 mcg tablet 112 mcg PO DAILY Qty: 90 2RF Spiriva Respimat 2.5 mcg/actuation mist See Rx Instructions .ROUTE .COMPLEX Qty: 12 3RF Dose Instruction: USE 2 INHALATIONS BY MOUTH IN THE MORNING Rx Instructions: USE 2 INHALATIONS BY MOUTH IN THE MORNING levalbuterol tartrate 45 mcg/actuation HFA aerosol inhaler 2 puff INHALATION Q4-6H PRN (Reason: shortness of breath or wheezing) Qty: 15 3RF sumatriptan succinate 100 mg tablet See Rx Instructions PO .COMPLEX Qty: 20 1RF Rx Instructions: take 1 tab at onset of headache; if no relief, may repeat 1 tab after at least 2 hrs; max = 2 tabs/24 hrs PO losartan 100 mg tablet See Rx Instructions .ROUTE .COMPLEX Qty: 90 3RF Dose Instruction: TAKE 1 TABLET BY MOUTH DAILY Rx Instructions: TAKE 1 TABLET BY MOUTH DAILY Dulera 200-5 mcg/actuation HFA aerosol inhaler 2 puff inhalation BID Qty: 8.8 3RF potassium chloride 10 mEq capsule, extended release See Rx Instructions .ROUTE .COMPLEX Qty: 180 3RF Dose Instruction: TAKE 1 CAPSULE BY MOUTH ONE DAY AND 2 CAPSULES THE FOLLOWING DAY, REPEAT THIS ALTERNATING DOSE Rx Instructions: TAKE 2 CAPSULES by mouth daily cholecalciferol (vitamin D3) 125 mcg (5,000 unit) capsule 125 mcg PO DAILY albuterol sulfate 90 mcg/actuation Hfa Aerosol Inhaler 2 puff INHALATION Q4-6H PRN (Reason: Shortness Of Breath) lidocaine 5 % adhesive patch,medicated 1 patch topical DAILY PRN (Reason: Pain) Rx Instructions: leave on most painful area for up to 12 hrs clonidine HCl 0.1 mg tablet 0.1 mg PO BID Pharmacist Comment: Prescription sent previously from our clinic Follow up/Referrals: Korey Saenz DO [Primary Care Provider] - Diet/Activity/Treatments Diet: Diet as Tolerated Activity: Weightbearing as tolerated. Anterior hip precautions. Cold/Heat Therapy: Ice to hip as needed for pain. Skin/Wound/Dressing Care Report to your healthcare provider any signs of infection, such as:: chills, fever, night sweats, unusual drainage and unusual redness Dressing: May shower. Leave dressing in place until follow up in office. No bathing or otherwise soaking incision. Call the office if the dressing becomes saturated inside. Visit Report/Discharge Packet Instructions: DI for Hip Replacement Stand Alone Forms: Patient Portal/API, Stroke Signs & Symptoms, Surgery Discharge Discharge Data Primary Care Provider: Korey Saenz Quality VTE Deep Vein Thrombosis/Pulmonary Embolism Present on Admission: No
[2023-07-04] MEDS: MAG HYDROX/ALUM/SIMETH 30 ML UDC PO (18:04)
[2023-07-04] MEDS: MELATONIN 3 MG TABLET 6 MG PO (20:23)
[2023-07-04] MEDS: LACTATED RINGERS 1,000 ML 1000 ML IV (20:24)
[2023-07-04] MEDS: CALCIUM CARBONATE 500 MG TAB PO (20:31)
[2023-07-04] MEDS: SUMAtriptan 25 MG TABLET 50 MG PO (22:21)
[2023-07-04] MEDS: SODIUM CHLORIDE 0.9% 1,000 ML 150 ML IV (22:21)
[2023-07-05] VITALS (8 sets, daily range): BP systolic 133–180; BP diastolic 52–83; PULSE 88–100; RESP 16–20; TEMP 35.9–36.6; O2SAT 94–100
[2023-07-05] MEDS: SODIUM CHLORIDE 0.9% 1,000 ML 150 ML IV (04:35)
[2023-07-05] MEDS: OXYCODONE IR 5 MG TABLET PO (04:40)
[2023-07-05] MEDS: ONDANSETRON 4 MG/2 ML INJ IV ×6 (04:40→21:06)
[2023-07-05] MEDS: ACETAMINOPHEN 325 MG TABLET 650 MG PO ×3 (05:31→17:40)
[2023-07-05] MEDS: IBUPROFEN 600 MG TABLET PO ×3 (05:32→17:41)
[2023-07-05] MEDS: LEVOTHYROXINE 112 MCG TABLET PO (05:32)
[2023-07-05] MEDS: MAG HYDROX/ALUM/SIMETH 30 ML UDC PO ×2 (05:32→13:10)
[2023-07-05] MEDS: IPRATROPIUM 0.5 MG/2.5 ML NEB INH (07:34)
--- NOTE | 2023-07-05 08:16 | PM.PNPO.1 ---
Subjective Subjective Date Patient Seen: 07/05/23 Time Patient Seen: 07:30 Interval history: Patient said she is feeling well today. She was finally able to receive her saline through IV. She still has difficulty with ambulation is unable to urinate on her own. she did have multiple episodes of vomiting last night. She has not made much progress with physical therapy and still feels unstable even with a walker. She would like to continue to work with PT and anticipate discharging home tomorrow. Exam Vital Signs (past 8 hours): - 07/05/23 02:00 07/05/23 06:00 07/05/23 07:34 Temperature 97.6 F 96.8 F L Pulse Rate 100 H 99 H 88 Respiratory Rate 16 16 18 Blood Pressure 153/80 H 133/75 Pulse Oximetry 96 94 97 Oxygen Delivery Method Room Air Oxygen Flow Rate 0 0 0 Fraction of Inspired Oxygen 21 Fraction of Inspired Oxygen 21 SaO2/FiO2 Ratio 461 Oxygen Delivery Method Room Air Oxygen Flow Rate 0 Narrative Exam Narrative: The patient is found sitting in her bed eating breakfast comfortably. Dressing is intact no signs of drainage. Able to dorsiflex and plantar flex against resistance bilaterally. Sensation is grossly intact bilaterally of the lower extremities. Resp Effort & Inspection: normal respiratory effort and able to speak in complete sentences Objective Labs 07/04/23 10:23 Labs: Laboratory Results - last 24 hr 07/04/23 10:23 Hgb 8.1 L Hct 23.5 L PFSH Medical History (Updated 07/03/23 @ 11:25 by Quang Sandoval PA-C) Easy bruisability Well adult exam Plantar warts Osteoarthritis (~1991) Shoulder pain Fractures (~1974) Chronic back pain Measles Chicken pox Vertigo Tinnitus Positive FIT (fecal immunochemical test) Right hip pain (01/2021) Depression (02/2019) Hypokalemia Post-menopause Serum calcium elevated Essential hypertension Migraine without aura or status migrainosus Fibromyalgia (~1989) History of iron deficiency anemia COPD (chronic obstructive pulmonary disease) with acute bronchitis Surgical History (Updated 07/03/23 @ 11:26 by Quang Sandoval PA-C) Anesthesia History of hip surgery (~1974) Family History Father Diabetes mellitus Hypertension Hyperlipidemia Stroke Mother Cancer Brother Cancer Social History household members: none Smoking Status: Former smoker Tobacco: How many years used: 35 second hand exposure: No alcohol intake: current substance use type: marijuana Assessment & Plan Post-op Postoperative Procedures: Procedures Operation Date: 07/02/23 10:45 Actual Procedure Side Surgeon p Total Hip Arthroplasty Anterior, HARDWARE REMOVAL Right Jeet White MD Postoperative day: 3 Postoperative status: doing well Postoperative plan: routine post-op care and ambulate Postoperative plan narrative: Increase fluid intake to improve orthostatic hypotension. Continue to work with physical therapy. Multimodal pain relief. If she continues to improve with physical therapy and orthostatic hypotension improves evaluate for discharge. Time Spent With Patient Time with patient: less than 15 minutes Quality VTE Deep Vein Thrombosis/Pulmonary Embolism Present on Admission: No
--- NOTE | 2023-07-05 08:26 | DI.US.S_ITS ---
PROCEDURE: US EXTREMITY NONVASC LOWER RT INDICATIONS: Rule out DVT TECHNIQUE: Real-time imaging, as well as color and pulse Doppler interrogation, were performed of the lower extremity deep veins from the inguinal ligament to the popliteal fossa. Attempted visualization of the calf veins was performed. COMPARISON: None. FINDINGS: The deep veins are normally compressible, and free of intraluminal thrombus. Color and pulse Doppler demonstrate normal phasic intraluminal flow. There is normal augmentation response to distal compression maneuver. IMPRESSION: No deep venous thrombosis of the visualized lower extremity. Approved by: Mario Storng M.D. on 07/05/2023 at 11:12
[2023-07-05] MEDS: ASPIRIN EC 81 MG TABLET PO (08:44)
[2023-07-05] MEDS: DOCUSATE 100 MG CAPSULE PO (08:44)
[2023-07-05] MEDS: POTASSIUM CHLORIDE 10 MEQ TAB PO ×2 (08:44→17:40)
[2023-07-05] MEDS: SUMAtriptan 25 MG TABLET 50 MG PO (09:04)
[2023-07-05] MEDS: ONDANSETRON 4 MG ODT PO (10:50)
--- NOTE | 2023-07-05 10:59 | PT-IP ANOTE ---
Pt having ultrasound to rule out DVT this AM. Will follow up pending results.
--- NOTE | 2023-07-05 12:49 | PT.IPTN ---
Current Diagnoses Anemia, unspecified (07/02/23) Unilateral primary osteoarthritis, right hip (07/02/23) Presence of right artificial hip joint (07/02/23) Surgery Performed Operation Date: 07/02/23 10:45 Actual Procedures p Total Hip Arthroplasty Anterior, HARDWARE REMOVAL(Right) - Jeet White MD Physical Therapy Treatment Note M2 PT-IP Current Condition Start: 07/04/23 08:44 Freq: NEEDED Status: Active Protocol: Document 07/05/23 12:20 SP (Rec: 07/05/23 16:34 SP [id number]) Physical Therapy Current Condition Current Condition Evaluation Date 07/04/23 Treatment Diagnosis Right anterior hip replacement s/p old ORIF M3 PT-IP Subjective Start: 07/04/23 08:44 Freq: NEEDED Status: Active Protocol: Document 07/05/23 12:20 SP (Rec: 07/05/23 16:34 SP [id number]) Subjective Physical Therapy Visit Type Type Treatment Note Visit Start Time 12:20 Visit Stop Time 12:49 Total Visit Minutes 29 Notes Vitals taken LUE automated: supine: BP 160/73 HR 94 SaO2 98% on RA Seated EOB: 155/75 HR 95 SaO2 94% nonsymptomatic Standing: Didn't write down not significantly lower, non symptomatic. post mobility seated in chair: 143/80 HR 111 (symptomatic litte light headed and nausea increase) Discussed with Nursing provide CP and wash her hands for improved hygiene end tx. Number of INSULATION HOSEMAN Visits 1 Physical Therapy Visit Comments Patient Comments Pt agreeable to PT and mobilizing but feeling little nausous. Patient Goals return home with sister tomorrow with HHPT Therapy Pain Assessment Pain When Pain Assessed During Mobility Pain Present Pain Present Pain Reported Location R hip Scale Used 0 rest, mid pain R anterior hip but there Description With Movement Pain Behaviors Facial Grimacing Pain Management Techniques Distraction,Elevation,Re- positioning,Timing of Activity with Medications M4 PT-IP Mobility and Gait Start: 07/04/23 08:44 Freq: NEEDED Status: Active Protocol: Document 07/05/23 12:20 SP (Rec: 07/05/23 16:34 SP [id number]) PT-Bed Mobility Assessment Supine to Sit Supine to Sit Standby Assistance Scooting Scooting to Edge of Bed Standby Assistance PT-Transfer Assessment Sit to and From Stand Sit to and from Stand Contact Guard Assistance,1 Person Assistance,Use of Upper Extremities Equipment Transfer Assistive Device Gait Belt,Front Wheeled Walker Orthotic/Prosthetic Devices or Brace: No Transfers Transfer Destination Chair,Toilet Transfer Technique ambulate to bathroom toilet Transfer Ability Level of Assist Contact Guard Assistance,1 Person Assistance,Use of Upper Extremities Comments Mobility Comments Pt reviewed precautions no/ minimize R LE ER/extension R hip, not just no falling as described when asked. INSULATION HOSEMAN removed periwick, place in towel on shelf. Nonsymptomatic sup>sit, proved gait belt loop for self RLE to EOB mobility SBA. STS cues for 1 UE on bed and other downward pressure FWW CGA post gait belt donned, see vitals, Gait to bathroom /c FWW step to patterning MOd BUE on FWW approx 12 ft, INSULATION HOSEMAN managed IV pole. Pt able to complete brief mgt self 1 UE on grab bar and pericare self seated. Pt stated started to feel dizzy coming to standing so returned to room chair usign FWW approx 10 ft, cues full pivot back and reach BUE slow descend sit. Provided pillows behind back and under BLEs. Requested HAZMAT TANKER DRIVER provide CP and education pt to continue to utilize and meds need let nursing know. Due to decrease strength/endurance/ symptomatic end tx unable assess further gait and stair mgt needs to complete safe return home. Will assess tomorrow. Pt states sister coming tomorrow get her but unaware what time. Gait Assessment Gait Gait Assistance Required: Contact Guard Assist Distance (Feet) 25 Able to Maintain Weight Bearing Status Yes During Gait Assistive Devices Assistive Device Gait Belt,Front Wheeled Walker Orthotic/Prosthetic Devices or Brace: No Gait Deviations General Gait Pattern Antalgic,Decreased Stride Length,Flexed Trunk,Step-to Gait Factors Limiting Gait Function Factors Limiting Gait Function Decreased Activity Tolerance, Decreased Strength,Limited Range of Motion,Pain,Poor Safety Awareness Comments Gait Comments see mobiltiy comments Stair Climbing Assessment Comments Stair Climbing Comments unable assess,will need assess 4 stairs BUE on 1 HR or SPC and HR due to home to wide for safe DC enter home. PT-Balance Assessment Sitting Balance and Reactions Static Sitting Balance Ability Good Dynamic Sitting Balance Ability Good Standing Balance and Reactions Static Standing Balance Ability Fair Dynamic Standing Balance Ability Fair Device Used RW M5 PT-IP Objective Assessments Start: 07/04/23 08:44 Freq: NEEDED Status: Active Protocol: Document 07/04/23 11:50 MB (Rec: 07/04/23 12:12 MB [id number]) Orientation Orientation/Cognition Level of Alertness Alert Orientation Name,Age,Birthday,Month,Date, Year,Day of Week,Place, Situation Language Function Ability No Deficits Noted Safety Awareness Understands Safety Issues Memory Description No Deficits Noted Gross Range of Motion Upper Extremity ROM Assessment Within Functional Limits Lower Extremity ROM Assessment Right Impaired Strength Upper Extremity Strength Assessment Within Functional Limits Lower Extremity Strength Assessment Right Impaired Comments Strength Comments MMT deferred post-op with right ankle and knee grossly WNLs M6 PT-IP Treatment Start: 07/04/23 08:44 Freq: NEEDED Status: Active Protocol: Document 07/05/23 12:20 SP (Rec: 07/05/23 16:34 SP [id number]) Physical Therapy Treatment Exercises Exercises Ankle Pumps,Gluteal Sets,Quad Sets,Heel Slides Education Education Provided Precautions,Weight Bearing Status,Post-Op Packet,Safety M7 PT-IP Assessment and Plan Start: 07/04/23 08:44 Freq: NEEDED Status: Active Protocol: Document 07/05/23 12:20 SP (Rec: 07/05/23 16:34 SP [id number]) PT Summary Assessment and Plan Potential Rehabilitation Potential Good Status of Condition at Evaluation Evolving Summary Impairments Strength,Balance,Bed Mobility, Transfers,Gait,Activity Tolerance Progress Towards Goals Progressing Toward Goals,Slow Progress due to Pain,Slow Progress due to Medical Issues ,Slow Progress due to Activity Tolerance Assessment Summary Pt SBA bed mob, improved vitals but symptomatic dizziness post mobility gait to bathromm back to chair, 15 ft/ 10 ft /c FWW. Pt reports slight improvement in nausea once reclined in chair. Continue to assess progress tomorrow. WIll need to assess stair mgt 1 HR tomorrow for safe DC. Will continue orthostatic checked vitals. Pt would benefit from HHPT, home 18/01 with sister when medically cleared. Goals Bed Mobility Goal Independent Transfer Goal Independent,Front Wheeled Walker Gait Goal Independent,Front Wheel Walker Gait Distance 100 Other Goals Pt will ascend and descend 4 steps with rail of choice and no more than superv assistance to allow safe home entrance. Progress to LRAD and increase gait distance as appropriate. Days to Meet Goals 4 Frequency of Treatment Frequency Of Treatment Twice a Day Treatment Plan Physical Therapy Treatment Plan Bed Mobility Training,Transfer Training,Gait Training, Therapeutic Exercise,Balance Retraining,Post Op Education, Hot or Cold Pack Other Recommendations and Next Treatment CHeck vitals, precaution check Focus , further distance gait, stair mgt 1 HR, caregiver training with sister if here, premedicate if needed. Precautions Anterior Hip Precautions No Hip Extension,No Hip External Rotation Weight Bearing Status Weight Bearing Status Weight Bear as Tolerated Recommendations To Nursing Amount of Assist Needed 1 Person Assist Discharge Recommendations PT Discharge Recommendations Home with 18/01 Assist Available Other Discharge Recommendations HH vs OPPT Transportation Needs at Discharge Private Vehicle
[2023-07-05] MEDS: LOSARTAN 50 MG TABLET 100 MG PO (13:05)
--- NOTE | 2023-07-05 15:04 | CM.DPNOTE ---
DCP Note NEGATIVE RETOUCHER reviewed EMR. POD3. Per RN, pt less dizzy but still having BP issues. Likely to keep her another night. Per chart review, previous plan home with sister when medically stable to [facility] . No additional CM needs identified at this time. Plan: home with sister support when medically stable, pending BP/dizziness. No additional CM needs identified at this time. CM team will continue to follow closely. JUSTYNA Malloy
[2023-07-05 16:42] LABS: Hematocrit 21.9 % (36-46); Hemoglobin 7.6 g/dL (12.0-16.0); Mean Corpuscular HGB Conc 34.6 % (30-36); Mean Corpuscular Hemoglobin 29.9 PG (26-34); Mean Corpuscular Volume 86.4 fL (80-100); Platelet Count 127 X10^3/uL (150-400); Red Blood Cell Count 2.54 X10^6/uL (4.0-5.2); Red Cell Distribution Width 13.8 % (11.6-14.8); White Blood Cell Count 6.5 X10^3/uL (4.5-11.0)
[2023-07-05 16:45] LABS: Add Manual Diff / Slide Review YES
[2023-07-05 16:58] LABS: Alanine Aminotransferase 13 IU/L (<35); Albumin 2.8 g/dL (3.5-5.0); Albumin Globulin Ratio 1.1 (1.0-2.8); Alkaline Phosphatase 55 U/L (38-126); Aspartate Aminotransferase 49 IU/L (14-36); BUN Creatinine Ratio 23.2 (6-22); Bilirubin Total 0.5 mg/dL (0.2-1.3); Blood Urea Nitrogen 13 mg/dL (7-17); Calcium 8.8 mg/dL (8.4-10.2); Carbon Dioxide 33 mmol/L (22-32); Chloride 96 mmol/L (98-107); Estimated Glomerular Filt Rate > 60 mL/min (>60); Globulin 2.6 g/dL (1.7-4.1); Glucose 99 mg/dL (80-110); HEMOLYSIS < 15 (0-50); Potassium 2.8 mmol/L (3.4-5.1); Sodium 132 mmol/L (137-145); Total Protein 5.4 g/dL (6.3-8.2)
--- NOTE | 2023-07-05 17:04 | PM.CN ---
History of Present Illness Consult details Date Patient Seen: 07/05/23 Chief complaint: INPT Narrative: Ana Boss is a 67yo F who was admitted for elective R total hip revision surgery and having post-op anemia and GI upset. Medicine consulted to help manage. Patient states ever since her surgery on wednesday she has had worsening abd pain, upset stomach, nausea and loose stools. She has never had these symptoms before. She is a daily pot smoker for over 40 years and hasn't gone a single day without THC during that time. Her last joint was on wednesday before her sugery, and has now feels progressively worse since then. She thinks she may be withdrawing from the marijuana. She had some heartburn yesterday but is now resolved. She was orthostatic as well when standing and felt diaphoretic yesterday. She lives on the [facility] and would need to take a ferry home. Meds Home Medications and Allergies Home Medications Medication Instructions Recorded Confirmed Type cholecalciferol (vitamin D3) 125 125 mcg PO DAILY 01/10/20 06/17/23 History mcg (5,000 unit) capsule chlorthalidone 25 mg tablet See Rx Instructions .Route 09/22/22 07/02/23 Rx .COMPLEX #90 tabs levalbuterol tartrate 45 2 puff inhalation Q4-6H PRN 03/31/23 07/02/23 Rx mcg/actuation aerosol inhaler shortness of breath or wheezing #15 grams levothyroxine 112 mcg tablet 112 mcg PO DAILY #90 tabs 03/31/23 07/02/23 Rx tiotropium bromide 2.5 See Rx Instructions .Route 03/31/23 07/02/23 Rx mcg/actuation mist for inhalation .COMPLEX #12 grams (Spiriva Respimat) sumatriptan succinate 100 mg tablet See Rx Instructions PO .COMPLEX 04/15/23 06/17/23 Rx #20 tabs potassium chloride 10 mEq See Rx Instructions .Route 05/05/23 07/02/23 Rx capsule,extended release .COMPLEX #180 caps losartan 100 mg tablet See Rx Instructions .Route 05/24/23 07/02/23 Rx .COMPLEX #90 tabs Dulera 200 mcg-5 mcg/actuation HFA 2 puff inhalation BID #8.8 grams 06/01/23 07/02/23 Rx aerosol inhaler (mometasone-formoterol) albuterol sulfate 90 mcg/actuation 2 puff inhalation Q4-6H PRN 06/17/23 07/02/23 History aerosol inhaler Shortness Of Breath lidocaine 5 % topical patch 1 patch topical DAILY PRN Pain 06/17/23 07/02/23 History clonidine HCl 0.1 mg tablet 0.1 mg PO BID 07/02/23 07/02/23 History Allergies Allergy/AdvReac Type Severity Reaction Status Date / Time fluticasone AdvReac Severe SWOLLEN Verified 07/02/23 09:03 [From ADVAIR DISKUS] THROAT salmeterol AdvReac Severe SWOLLEN Verified 07/02/23 09:03 [From ADVAIR DISKUS] THROAT sertraline AdvReac Severe increased Verified 07/02/23 09:03 depression tramadol [TRAMADOL] AdvReac Severe hot flashes Verified 07/02/23 09:03 Review of Systems Review of Systems Narrative: All other systems reviewed with the patient and are negative unless otherwise stated. Exam Vital Signs (past 8 hours): - 07/05/23 12:00 07/05/23 12:20 07/05/23 13:05 Temperature 97.9 F Pulse Rate 94 H Respiratory Rate 20 Blood Pressure 160/73 H 160/52 H Blood Pressure [Orthostatic Lying] 160/73 H Blood Pressure [Orthostatic Sitting] 143/80 H Pulse Oximetry 95 Oxygen Flow Rate 0 Fraction of Inspired Oxygen 21 SaO2/FiO2 Ratio 461 Oxygen Delivery Method Room Air Oxygen Flow Rate 0 Narrative Exam Narrative: GEN: appears uncomfortable HEENT: moist mucous membranes, PERRL NECK: trachea midline, no JVD CV: regular rate and rhythm, no murmurs PULM: clear bilaterally ABD: soft, epigastric abd pain, nondistended, no organomegaly EXT: warm and well perfused with no edema NEURO: awake, alert, oriented, no focal deficits Objective Labs 07/05/23 16:29 07/05/23 16:29 Labs: Laboratory Results - last 24 hr 07/05/23 16:29 WBC 6.5 RBC 2.54 L Hgb 7.6 L Hct 21.9 L MCV 86.4 MCH 29.9 MCHC 34.6 RDW 13.8 Plt Count 127 L Neut % (Auto) Not Reportable Lymph % (Auto) Not Reportable [place] % (Auto) Not Reportable Eos % (Auto) Not Reportable Baso % (Auto) Not Reportable Lymph # (Auto) Not Reportable [place] # (Auto) Not Reportable Baso # (Auto) Not Reportable Sodium 132 L Potassium 2.8 L Chloride 96 L Carbon Dioxide 33 H BUN 13 Creatinine 0.56 Estimated GFR > 60 BUN/Creatinine Ratio 23.2 H Glucose 99 Calcium 8.8 Total Bilirubin 0.5 AST 49 H ALT 13 Alkaline Phosphatase 55 Total Protein 5.4 L Albumin 2.8 L Globulin 2.6 Albumin/Globulin Ratio 1.1 [facility] Medical History (Updated 07/03/23 @ 11:25 by uQang Sandoval PA-C) Easy bruisability Well adult exam Plantar warts Osteoarthritis (~1991) Shoulder pain Fractures (~1974) Chronic back pain Measles Chicken pox Vertigo Tinnitus Positive FIT (fecal immunochemical test) Right hip pain (01/2021) Depression (02/2019) Hypokalemia Post-menopause Serum calcium elevated Essential hypertension Migraine without aura or status migrainosus Fibromyalgia (~1989) History of iron deficiency anemia COPD (chronic obstructive pulmonary disease) with acute bronchitis Surgical History (Updated 07/03/23 @ 11:26 by Quang Sandoval PA-C) Anesthesia History of hip surgery (~1974) Family History Father Diabetes mellitus Hypertension Hyperlipidemia Stroke Mother Cancer Brother Cancer Social History household members: none Tobacco & Substance Use Smoking Status: Former smoker Tobacco: How many years used: 35 second hand exposure: No alcohol intake: current substance use type: marijuana Assessment & Plan Assessment & Plan narrative: # GI upset -patient having abd pain, nausea, loose stools and bloating -may be withdrawing from THC, given she smoked daily for 40 years and her last joint was 3 days ago and has felt progressively worse since then -start marinol TID -start PPI, d/c ibuprofen in case of PUD -GI cocktail PRN -if not improving may need to have EGD # post-op anemia -Hgb downtrending, check guaiac -s/p 1 unit PRBC already -transfuse at Hgb <7 # orthostasis -start IVF -hold home chlorthalidoneand losartan for now -continue clonidine to avoid rebound tachycardia -qshift orthostatics -PT eval # hypokalemia -replete -check mag # hypothyroidism -continue synthroid -check TSH # malnutrition -low electrolytes, albumin 2.8 -student services director consult Medicine will continue to follow. Thank you for allowing us to participate in the care of this patient. Should you have any questions, do not hesitate to speak with us directly or call us.
[2023-07-05 17:08] LABS: Troponin I 0.016 ng/mL (0.01-0.034)
[2023-07-05 17:09] LABS: Neutrophils Absolute Manual 5200 /uL (3000-5900); RBC Morphology Normal Morphology; Total Cells Counted 100
[2023-07-05] MEDS: SODIUM CHLORIDE 0.9% 1,000 ML 100 ML IV (17:40)
[2023-07-05] MEDS: POTASSIUM CHLORIDE 20 MEQ TAB 40 MEQ PO (17:40)
[2023-07-05] MEDS: droNABinol 2.5 MG CAPSULE PO ×2 (18:14→22:11)
[2023-07-05 19:11] LABS: Magnesium 1.3 mg/dL (1.6-2.3)
[2023-07-05 19:43] LABS: TSH w/ Reflex to FT4 0.12 uIU/mL (0.47-4.68)
[2023-07-05 20:58] LABS: Free T4, Direct Thyroxine 1.98 ng/dL (0.78-2.19)
--- NOTE | 2023-07-05 21:36 | PC.NURSE ---
Addendum entered by Suyapa Reinoso R.N. 07/06/23 02:23: pt now has an order for ativan 0.5 mg ivp prn every 6 hours as well as compazine 5 mg ivp. pt was given lorazepam and marinol around 2230, pt was able to rest. abdomen is soft, bowel tones hypo, continues to be hypertensive with no headache. pt aware that if her symptoms don't improve she will have an EGD. Original Note: Pt c/o nausea tonight, state she hasn't been able to tolerate anything by mouth. This nurse gave pt ondansetron IVP, Pt is hypertensive 180/83, [facility] shift hospitalist aware. pt states I think I am withdrawing for marihuana. no night meds given, waiting on MD orders.
[2023-07-05] MEDS: LORazepam 2 MG/ML INJ 0.5 MG IV (22:11)
[2023-07-06] VITALS (9 sets, daily range): BP systolic 112–175; BP diastolic 58–84; PULSE 87–140; RESP 15–20; TEMP 36.1–37.3; O2SAT 94–96; BMI 22.2
[2023-07-06] MEDS: ONDANSETRON 4 MG/2 ML INJ IV (01:55)
[2023-07-06] MEDS: SODIUM CHLORIDE 0.9% 1,000 ML 100 ML IV (01:59)
[2023-07-06] MEDS: MAG HYDROX/ALUM/SIMETH 30 ML UDC PO (01:59)
[2023-07-06] MEDS: PROCHLORPERAZINE 10 MG/2 ML VIAL 5 MG IV (02:57)
[2023-07-06] MEDS: PANTOPRAZOLE 40 MG VIAL IV ×3 (02:57→21:05)
[2023-07-06] MEDS: KCL 20 MEQ IN NS 1,000 ML 100 MEQ IV (03:35)
[2023-07-06] MEDS: MAGNESIUM SULFATE 2 GM/50 ML PIGGYBACK IV ×2 (04:10→08:13)
[2023-07-06 07:43] LABS: Add Manual Diff / Slide Review NO; Basophils Absolute Auto 0 /uL (0-100); Basophils Percent Auto 0.1 % (0-2); Eosinophils Absolute Auto 0 /uL (0-450); Hematocrit 22.1 % (36-46); Hemoglobin 7.7 g/dL (12.0-16.0); Lymphocytes Absolute Auto 600 /uL (1100-4500); Lymphocytes Percent Auto 7.5 % (25-40); Mean Corpuscular HGB Conc 34.8 % (30-36); Mean Corpuscular Hemoglobin 29.9 PG (26-34); Monocytes Absolute Auto 800 /uL (0-900); Monocytes Percent Auto 10.1 % (3-14); Neutrophils Absolute Auto 6200 /uL (1500-7000); Neutrophils Percent Auto 82.3 % (50-75); Platelet Count 153 X10^3/uL (150-400); Red Blood Cell Count 2.57 X10^6/uL (4.0-5.2); Red Cell Distribution Width 13.9 % (11.6-14.8); White Blood Cell Count 7.5 X10^3/uL (4.5-11.0)
[2023-07-06 07:59] LABS: BUN Creatinine Ratio 26.5 (6-22); Blood Urea Nitrogen 13 mg/dL (7-17); Calcium 8.4 mg/dL (8.4-10.2); Carbon Dioxide 31 mmol/L (22-32); Chloride 94 mmol/L (98-107); Estimated Glomerular Filt Rate > 60 mL/min (>60); Glucose 111 mg/dL (80-110); HEMOLYSIS < 15 (0-50); Sodium 132 mmol/L (137-145)
[2023-07-06 08:00] LABS: Magnesium 1.9 mg/dL (1.6-2.3)
[2023-07-06 08:07] LABS: Potassium 2.5 mmol/L (3.4-5.1)
[2023-07-06] MEDS: LORazepam 2 MG/ML INJ 0.5 MG IV ×2 (08:09→15:00)
[2023-07-06] MEDS: droNABinol 2.5 MG CAPSULE PO ×3 (08:13→16:17)
[2023-07-06] MEDS: POTASSIUM CHLORIDE IN WATER 10 MEQ/100 ML PIGGYBACK 100 MEQ IV ×4 (08:30→12:44)
[2023-07-06] MEDS: SODIUM CHLORIDE 0.9% FLUSH 10 ML IV ×2 (08:31→21:05)
[2023-07-06] MEDS: ASPIRIN EC 81 MG TABLET PO (08:32)
[2023-07-06] MEDS: DOCUSATE 100 MG CAPSULE PO ×2 (08:32→21:01)
[2023-07-06] MEDS: LOSARTAN 50 MG TABLET 100 MG PO (08:32)
[2023-07-06] MEDS: cloNIDine 0.1 MG TABLET PO (08:35)
[2023-07-06] MEDS: POTASSIUM CHLORIDE 10 MEQ TAB PO (08:38)
[2023-07-06] MEDS: POTASSIUM CHLORIDE 20 MEQ TAB 40 MEQ PO (08:38)
[2023-07-06] MEDS: IPRATROPIUM 0.5 MG/2.5 ML NEB INH (09:03)
--- NOTE | 2023-07-06 11:12 | PT.IPTN ---
Current Diagnoses Anemia, unspecified (07/02/23) Unilateral primary osteoarthritis, right hip (07/02/23) Presence of right artificial hip joint (07/02/23) Surgery Performed Operation Date: 07/02/23 10:45 Actual Procedures p Total Hip Arthroplasty Anterior, HARDWARE REMOVAL(Right) - Jeet White MD Operation Date: 07/06/23 14:15 <No data on this case meets the specified criteria> Physical Therapy Treatment Note M2 PT-IP Current Condition Start: 07/04/23 08:44 Freq: NEEDED Status: Active Protocol: Document 07/05/23 12:20 SP (Rec: 07/05/23 16:34 SP [id number]) Physical Therapy Current Condition Current Condition Evaluation Date 07/04/23 Treatment Diagnosis Right anterior hip replacement s/p old ORIF M3 PT-IP Subjective Start: 07/04/23 08:44 Freq: NEEDED Status: Active Protocol: Document 07/06/23 13:04 TS (Rec: 07/06/23 13:16 TS [id number]) Subjective Physical Therapy Visit Type Type Treatment Note Visit Start Time 11:12 Visit Stop Time 11:37 Total Visit Minutes 25 Notes BP 147/76 supine, 126/58 sitting, 131/64 standing. HR 140 after mobility. Number of GYMNASTICS INSTRUCTOR Visits 2 Physical Therapy Visit Comments Patient Comments Pt found resting in bed, is agreeable to PT. Patient Goals return home with sister tomorrow with HHPT Therapy Pain Assessment Pain When Pain Assessed During Mobility Pain Present Pain Present Pain Reported M4 PT-IP Mobility and Gait Start: 07/04/23 08:44 Freq: NEEDED Status: Active Protocol: Document 07/06/23 13:04 TS (Rec: 07/06/23 13:16 TS [id number]) PT-Bed Mobility Assessment Supine to Sit Supine to Sit Standby Assistance Scooting Scooting to Edge of Bed Standby Assistance PT-Transfer Assessment Sit to and From Stand Sit to and from Stand Standby Assistance,Use of Upper Extremities Equipment Transfer Assistive Device Gait Belt,Front Wheeled Walker Orthotic/Prosthetic Devices or Brace: No Comments Mobility Comments Supine to sit SBA with use of gait belt to assist RLE to EOB . Bp in sitting 126/58, pt denied any dizziness. Sit to stand with FWW SBA, pt demonstrates good carryover of sequencing. BP in standing 131/64, pt continues to deny dizziness. She ambulated in room ~30' SBA with FWW, denied dizziness but reported feeling fatigued, pt sat in chair. Nursing came into room to notify pt of HR at 140. Pt was left in chair, all needs met. Gait Assessment Gait Gait Assistance Required: Standby Assistance Distance (Feet) 30 Able to Maintain Weight Bearing Status Yes During Gait Assistive Devices Assistive Device Gait Belt,Front Wheeled Walker Orthotic/Prosthetic Devices or Brace: No Gait Deviations General Gait Pattern Antalgic,Decreased Stride Length,Flexed Trunk,Step-to Gait Factors Limiting Gait Function Factors Limiting Gait Function Decreased Activity Tolerance, Decreased Strength,Limited Range of Motion,Pain,Poor Safety Awareness Comments Gait Comments see mobiltiy comments PT-Balance Assessment Sitting Balance and Reactions Static Sitting Balance Ability Good Dynamic Sitting Balance Ability Good Standing Balance and Reactions Static Standing Balance Ability Fair Dynamic Standing Balance Ability Fair Device Used RW M5 PT-IP Objective Assessments Start: 07/04/23 08:44 Freq: NEEDED Status: Active Protocol: Document 07/04/23 11:50 MB (Rec: 07/04/23 12:12 MB [id number]) Orientation Orientation/Cognition Level of Alertness Alert Orientation Name,Age,Birthday,Month,Date, Year,Day of Week,Place, Situation Language Function Ability No Deficits Noted Safety Awareness Understands Safety Issues Memory Description No Deficits Noted Gross Range of Motion Upper Extremity ROM Assessment Within Functional Limits Lower Extremity ROM Assessment Right Impaired Strength Upper Extremity Strength Assessment Within Functional Limits Lower Extremity Strength Assessment Right Impaired Comments Strength Comments MMT deferred post-op with right ankle and knee grossly WNLs M6 PT-IP Treatment Start: 07/04/23 08:44 Freq: NEEDED Status: Active Protocol: Document 07/06/23 13:04 TS (Rec: 07/06/23 13:16 TS [id number]) Physical Therapy Treatment Education Education Provided Precautions,Weight Bearing Status,Post-Op Packet,Safety M7 PT-IP Assessment and Plan Start: 07/04/23 08:44 Freq: NEEDED Status: Active Protocol: Document 07/06/23 13:04 TS (Rec: 07/06/23 13:16 TS [id number]) PT Summary Assessment and Plan Potential Rehabilitation Potential Good Summary Impairments Strength,Balance,Bed Mobility, Transfers,Gait,Activity Tolerance Progress Towards Goals Progressing Toward Goals Assessment Summary Tweet is making progress with her mobility this session. She is SBA for bed mobility with use of gait belt strap to assist RLE. She is SBA for sit to stand with use of FWW, has good standing balance with no retroleaning. She ambulated a short distance in room, denied dizziness but reported fatigue. Nursing came into room to notify pt of high HR, pt was resting in chair at the time just after ambulation. PT recommends home with assist and HHPT. Goals Bed Mobility Goal Independent Transfer Goal Independent,Front Wheeled Walker Gait Goal Independent,Front Wheel Walker Gait Distance 100 Other Goals Pt will ascend and descend 4 steps with rail of choice and no more than superv assistance to allow safe home entrance. Progress to LRAD and increase gait distance as appropriate. Days to Meet Goals 4 Frequency of Treatment Frequency Of Treatment Twice a Day Treatment Plan Physical Therapy Treatment Plan Bed Mobility Training,Transfer Training,Gait Training, Therapeutic Exercise,Balance Retraining,Post Op Education, Hot or Cold Pack Other Recommendations and Next Treatment CHeck vitals, precaution check Focus , further distance gait, stair mgt 1 HR, caregiver training with sister if here, premedicate if needed. Precautions Anterior Hip Precautions No Hip Extension,No Hip External Rotation Weight Bearing Status Weight Bearing Status Weight Bear as Tolerated Recommendations To Nursing Amount of Assist Needed 1 Person Assist Discharge Recommendations PT Discharge Recommendations Home with Assistance,Home Health,Outpatient PT Other Discharge Recommendations HH vs OPPT Transportation Needs at Discharge Private Vehicle
[2023-07-06] MEDS: ACETAMINOPHEN 325 MG TABLET 650 MG PO ×2 (11:25→16:18)
[2023-07-06] MEDS: OXYCODONE IR 5 MG TABLET PO ×2 (11:25→21:04)
--- NOTE | 2023-07-06 12:37 | P.PN_ITS ---
Subjective Subjective Date Patient Seen: 07/06/23 Time Patient Seen: 08:00 Interval history: Patient's complaint today is her abdomen. While she is no longer vomiting she still feels nauseous. She has had no increase in pain regarding her right hip. She has been working with physical therapy to ambulate with a walker. Exam Vital Signs (past 8 hours): - 07/06/23 07:00 07/06/23 08:06 07/06/23 12:00 Temperature 99.2 F Pulse Rate 87 118 H Pulse Rate [Orthostatic Sitting] 140 H Respiratory Rate 18 18 Blood Pressure 175/84 H 131/64 Blood Pressure [Orthostatic Lying] 131/64 Blood Pressure [Orthostatic Sitting] 126/58 L Pulse Oximetry 94 95 Oxygen Flow Rate 0 0 Fraction of Inspired Oxygen 21 SaO2/FiO2 Ratio 461 Oxygen Delivery Method Room Air Oxygen Flow Rate 0 Const General: cooperative Resp Effort & Inspection: normal respiratory effort and able to speak in complete sentences GI Other: Abdomen soft in all 4 quadrants. Has localized pain along the epigastric region and the upper left quadrant. No rebound tenderness noted. Extrem Other: Dressing over surgical site appears to be well-maintained no signs of drainage or infection. No increased pain to compression along posterior thigh or calf. Able to dorsiflex and plantarflex against resistance bilaterally at the ankles. Station grossly intact lower extremities bilaterally. Objective Labs 07/06/23 07:26 07/06/23 07:26 Labs: Laboratory Results - last 24 hr 07/05/23 07/06/23 16:29 07:26 WBC 6.5 7.5 RBC 2.54 L 2.57 L Hgb 7.6 L 7.7 L Hct 21.9 L 22.1 L MCV 86.4 86.0 MCH 29.9 29.9 MCHC 34.6 34.8 RDW 13.8 13.9 Plt Count 127 L 153 Neut % (Auto) Not Reportable 82.3 H Lymph % (Auto) Not Reportable 7.5 L [place] % (Auto) Not Reportable 10.1 Eos % (Auto) Not Reportable 0.0 L Baso % (Auto) Not Reportable 0.1 Neut # (Auto) 6200 Lymph # (Auto) Not Reportable 600 L [place] # (Auto) Not Reportable 800 Eos # (Auto) 0 Baso # (Auto) Not Reportable 0 Total Counted 100 Seg Neutrophils % 73.0 H Band Neutrophils % 7.0 Lymphocytes % (Manual) 11.0 L Monocytes % (Manual) 8.0 Myelocytes % 1.0 H Neutrophils # (Manual) 5200 RBC Morphology Normal morphology Sodium 132 L 132 L Potassium 2.8 L 2.5 L* Chloride 96 L 94 L Carbon Dioxide 33 H 31 BUN 13 13 Creatinine 0.56 0.49 L Estimated GFR > 60 > 60 BUN/Creatinine Ratio 23.2 H 26.5 H Glucose 99 111 H Calcium 8.8 8.4 Magnesium 1.3 L 1.9 Total Bilirubin 0.5 AST 49 H ALT 13 Alkaline Phosphatase 55 Troponin I 0.016 Total Protein 5.4 L Albumin 2.8 L Globulin 2.6 Albumin/Globulin Ratio 1.1 TSH 0.12 L Free T4 1.98 [facility] Medical History (Updated 07/03/23 @ 11:25 by Quang Sandoval PA-C) Easy bruisability Well adult exam Plantar warts Osteoarthritis (~1991) Shoulder pain Fractures (~1974) Chronic back pain Measles Chicken pox Vertigo Tinnitus Positive FIT (fecal immunochemical test) Right hip pain (01/2021) Depression (02/2019) Hypokalemia Post-menopause Serum calcium elevated Essential hypertension Migraine without aura or status migrainosus Fibromyalgia (~1989) History of iron deficiency anemia COPD (chronic obstructive pulmonary disease) with acute bronchitis Surgical History (Updated 07/03/23 @ 11:26 by Quang Sandoval PA-C) Anesthesia History of hip surgery (~1974) Family History Father Diabetes mellitus Hypertension Hyperlipidemia Stroke Mother Cancer Brother Cancer Social History household members: none Smoking Status: Former smoker Tobacco: How many years used: 35 second hand exposure: No alcohol intake: current substance use type: marijuana Assessment & Plan Post-op Postoperative Procedures: Procedures Operation Date: 07/02/23 10:45 Actual Procedure Side Surgeon p Total Hip Arthroplasty Anterior, HARDWARE REMOVAL Right Jeet White MD Postoperative day: 4 Postoperative status narrative: Status post right hip arthroplasty. Epigastric abdominal pain. Postoperative anemia Postoperative plan narrative: Status post right hip arthroplasty: Patient is coming along as expected with physical therapy. Currently she is just requiring 1 person assist for transfer and ambulation. Patient does have a sister that will be living with her to take care of her when she goes home. Spoke with hospitalist with regards to findings of GI upset anemia orthostasis hypokalemia hypothyroidism and malnutrition. Labs are pending to see if chemistry levels have improved and if there is a positive stool guaiac. There is debate whether these conditions stemming from THC withdrawal or a bleeding ulcer. He did agree that the patient would benefit working with physical therapy and will address the therapists to treat with the patient even though the hematocrit is between 7 and 8. Currently there are number of medical issues that need to be addressed and remedied first before the patient can be considered for discharge to even a SNF. We would like to thank Medicine for addressing the multiple issues that have developed with this patient. Quality VTE Deep Vein Thrombosis/Pulmonary Embolism Present on Admission: No
--- NOTE | 2023-07-06 13:38 | SUR.HOLD ---
Went up to room 216 to retrieve patient for EGD; call received from OR charge to hold patient for now due to hypokalemia. PACU nurse sending repeat Potassium level to lab to reassess. Notified Dr Laws, surgeon, of plan. Will update Dr Laws with lab results when available.
[2023-07-06 13:43] LABS: HEMOLYSIS < 15 (0-50); Potassium 3.2 mmol/L (3.4-5.1)
[2023-07-06 13:51] LABS: BUN Creatinine Ratio 26.2 (6-22); Blood Urea Nitrogen 16 mg/dL (7-17); Calcium 8.4 mg/dL (8.4-10.2); Carbon Dioxide 32 mmol/L (22-32); Chloride 92 mmol/L (98-107); Estimated Glomerular Filt Rate > 60 mL/min (>60); Glucose 139 mg/dL (80-110); HEMOLYSIS < 15 (0-50); Potassium 3.2 mmol/L (3.4-5.1); Sodium 130 mmol/L (137-145)
--- NOTE | 2023-07-06 14:02 | PT-IP ANOTE ---
Pt not appropriate, currently having medical procedure. PT will check back with pt tomorrow.
[2023-07-06] MEDS: LACTATED RINGERS 1,000 ML 42 ML IV (14:05)
--- NOTE | 2023-07-06 14:27 | PM.CN ---
History of Present Illness Consult details Date Patient Seen: 07/06/23 Time Patient Seen: 14:27 Chief complaint: INPT Reason for consult: Abdominal pain Narrative: 67-year-old woman who underwent conversion right total hip arthroplasty from prior acetabular open reduction internal fixation with removal of hardware July 02. She remains in the hospital with anemia, guaiac-positive and complaint of epigastric pain. 600 Meds Home Medications and Allergies Home Medications Medication Instructions Recorded Confirmed Type cholecalciferol (vitamin D3) 125 125 mcg PO DAILY 01/10/20 06/17/23 History mcg (5,000 unit) capsule chlorthalidone 25 mg tablet See Rx Instructions .Route 09/22/22 07/02/23 Rx .COMPLEX #90 tabs levalbuterol tartrate 45 2 puff inhalation Q4-6H PRN 03/31/23 07/02/23 Rx mcg/actuation aerosol inhaler shortness of breath or wheezing #15 grams levothyroxine 112 mcg tablet 112 mcg PO DAILY #90 tabs 03/31/23 07/02/23 Rx tiotropium bromide 2.5 See Rx Instructions .Route 03/31/23 07/02/23 Rx mcg/actuation mist for inhalation .COMPLEX #12 grams (Spiriva Respimat) sumatriptan succinate 100 mg tablet See Rx Instructions PO .COMPLEX 04/15/23 06/17/23 Rx #20 tabs potassium chloride 10 mEq See Rx Instructions .Route 05/05/23 07/02/23 Rx capsule,extended release .COMPLEX #180 caps losartan 100 mg tablet See Rx Instructions .Route 05/24/23 07/02/23 Rx .COMPLEX #90 tabs Dulera 200 mcg-5 mcg/actuation HFA 2 puff inhalation BID #8.8 grams 06/01/23 07/02/23 Rx aerosol inhaler (mometasone-formoterol) albuterol sulfate 90 mcg/actuation 2 puff inhalation Q4-6H PRN 06/17/23 07/02/23 History aerosol inhaler Shortness Of Breath lidocaine 5 % topical patch 1 patch topical DAILY PRN Pain 06/17/23 07/02/23 History clonidine HCl 0.1 mg tablet 0.1 mg PO BID 07/02/23 07/02/23 History Allergies Allergy/AdvReac Type Severity Reaction Status Date / Time fluticasone AdvReac Severe SWOLLEN Verified 07/02/23 09:03 [From ADVAIR DISKUS] THROAT salmeterol AdvReac Severe SWOLLEN Verified 07/02/23 09:03 [From ADVAIR DISKUS] THROAT sertraline AdvReac Severe increased Verified 07/02/23 09:03 depression tramadol [TRAMADOL] AdvReac Severe hot flashes Verified 07/02/23 09:03 Exam Vital Signs (past 8 hours): - 07/06/23 07:00 07/06/23 08:06 07/06/23 12:00 Temperature 99.2 F Pulse Rate 87 118 H Pulse Rate [Orthostatic Sitting] 140 H Respiratory Rate 18 18 Blood Pressure 175/84 H 131/64 Blood Pressure [Orthostatic Lying] 131/64 Blood Pressure [Orthostatic Sitting] 126/58 L Pulse Oximetry 94 95 Oxygen Delivery Method Oxygen Flow Rate 0 0 07/06/23 14:01 Temperature 99.1 F Pulse Rate 94 H Pulse Rate [Orthostatic Sitting] Respiratory Rate 20 Blood Pressure 112/74 Blood Pressure [Orthostatic Lying] Blood Pressure [Orthostatic Sitting] Pulse Oximetry 96 Oxygen Delivery Method Room Air Oxygen Flow Rate Fraction of Inspired Oxygen 21 SaO2/FiO2 Ratio 461 Oxygen Delivery Method Room Air Oxygen Flow Rate 0 Objective Labs 07/06/23 07:26 07/06/23 13:10 Labs: Laboratory Results - last 24 hr 07/05/23 07/06/23 07/06/23 16:29 07:26 13:10 WBC 6.5 7.5 RBC 2.54 L 2.57 L Hgb 7.6 L 7.7 L Hct 21.9 L 22.1 L MCV 86.4 86.0 MCH 29.9 29.9 MCHC 34.6 34.8 RDW 13.8 13.9 Plt Count 127 L 153 Neut % (Auto) Not Reportable 82.3 H Lymph % (Auto) Not Reportable 7.5 L [place] % (Auto) Not Reportable 10.1 Eos % (Auto) Not Reportable 0.0 L Baso % (Auto) Not Reportable 0.1 Neut # (Auto) 6200 Lymph # (Auto) Not Reportable 600 L [place] # (Auto) Not Reportable 800 Eos # (Auto) 0 Baso # (Auto) Not Reportable 0 Total Counted 100 Seg Neutrophils % 73.0 H Band Neutrophils % 7.0 Lymphocytes % (Manual) 11.0 L Monocytes % (Manual) 8.0 Myelocytes % 1.0 H Neutrophils # (Manual) 5200 RBC Morphology Normal morphology Sodium 132 L 132 L 130 L Potassium 2.8 L 2.5 L* 3.2 L Chloride 96 L 94 L Carbon Dioxide 33 H 31 BUN 13 13 Creatinine 0.56 0.49 L Estimated GFR > 60 > 60 BUN/Creatinine Ratio 23.2 H 26.5 H Glucose 99 111 H Calcium 8.8 8.4 Magnesium 1.3 L 1.9 Total Bilirubin 0.5 AST 49 H ALT 13 Alkaline Phosphatase 55 Troponin I 0.016 Total Protein 5.4 L Albumin 2.8 L Globulin 2.6 Albumin/Globulin Ratio 1.1 TSH 0.12 L Free T4 1.98 07/06/23 13:10 WBC RBC Hgb Hct MCV MCH MCHC RDW Plt Count Neut % (Auto) Lymph % (Auto) [place] % (Auto) Eos % (Auto) Baso % (Auto) Neut # (Auto) Lymph # (Auto) [place] # (Auto) Eos # (Auto) Baso # (Auto) Total Counted Seg Neutrophils % Band Neutrophils % Lymphocytes % (Manual) Monocytes % (Manual) Myelocytes % Neutrophils # (Manual) RBC Morphology Sodium Potassium 3.2 L Chloride 92 L Carbon Dioxide 32 BUN 16 Creatinine 0.61 Estimated GFR > 60 BUN/Creatinine Ratio 26.2 H Glucose 139 H Calcium 8.4 Magnesium Total Bilirubin AST ALT Alkaline Phosphatase Troponin I Total Protein Albumin Globulin Albumin/Globulin Ratio TSH Free T4 [facility] Medical History (Updated 07/03/23 @ 11:25 by Quang Sandoval PA-C) Easy bruisability Well adult exam Plantar warts Osteoarthritis (~1991) Shoulder pain Fractures (~1974) Chronic back pain Measles Chicken pox Vertigo Tinnitus Positive FIT (fecal immunochemical test) Right hip pain (01/2021) Depression (02/2019) Hypokalemia Post-menopause Serum calcium elevated Essential hypertension Migraine without aura or status migrainosus Fibromyalgia (~1989) History of iron deficiency anemia COPD (chronic obstructive pulmonary disease) with acute bronchitis Surgical History (Updated 07/03/23 @ 11:26 by Quang Sandoval PA-C) Anesthesia History of hip surgery (~1974) Family History Father Diabetes mellitus Hypertension Hyperlipidemia Stroke Mother Cancer Brother Cancer Social History household members: none Tobacco & Substance Use Smoking Status: Former smoker Tobacco: How many years used: 35 second hand exposure: No alcohol intake: current substance use type: marijuana
--- NOTE | 2023-07-06 17:22 | DIET.CONS ---
Dietary Consultation Note Admission Date: 07/02/2023 08:38 Assessment: 67F admitted for right total hip revision. Resulted in post-op anemia and GI upset. RD consulted for PCM screen. She does meet criteria for moderate protein calorie malnutrition by BMI <23 (for age >65) and weight loss of 5% in one month; however today she tells me that the weight loss was intentional. States she has been on an atkins diet for a few months to feel less pudgy. Also reports increased exercise with pulmonary rehab. Diet recall indicates adequate intake with 2-3 meals and 1-2 snacks per day. Endorses eating fruits, veggies, and protein. Reports a goal of 130-135# (59-61kg), which may be particularly low for age. PO over the last couple days has been low, but seems r/t nausea and vomiting(potentially withdrawals from THC). Pt currently NPO d/t EGD tomorrow. Nutrition focused exam indicated some mild temporal wasting. No clavicle protrusion, boxed shoulders or interosseous wasting detected. Diet recall: B: eggs, byrnes, fruit L: low carb tortilla with pb or meat/lettuce D: chicken or steak and veg Sn: atkins bar or fruit Ht: 168.91 cm Wt: 63.503 kg BMI: 22.2 Last BM: 07/02/23 (07/06/23 14:01) MNA: 11 Jeffery Score: 19 Diet: 07/06/23 Dinner General (Regular) Diet Diet Modifications: Food Texture: Level 7 - Regular Liquid Consistency: Level 0 - Thin 07/07/23 00:01 NPO Diet Diet Modifications: NPO Type: NPO except for Meds NPO Diet Diet Modifications: NPO after midnight except for medications NPO Type: NPO except for Meds Nutrition Percent Meal Consumed 0% 07/05/23 18:00 Percent Meal Consumed 0% 07/04/23 18:00 Labs: RBC 2.57 X10^6/uL (4.0-5.2) L 07/06/23 07:26 Hgb 7.7 g/dL (12.0-16.0) L 07/06/23 07:26 Hct 22.1 % (36-46) L 07/06/23 07:26 Creatinine 0.61 mg/dL (0.52-1.04) 07/06/23 13:10 Nutrition Diagnosis: Inadequate energy intake r/t nausea/vomiting aeb PO <75% x 3 days and notes indicating potential withdrawal from THC Interventions: 1. Reviewed low carb diet considerations 2. Discussed healthy weight goals Monitoring/Evaluations: Will continue to follow pt Electronically Signed by: Rosie Guidry 07/06/23 17:22 Clinical Dietitian [address] [address]
--- NOTE | 2023-07-06 17:42 | CM.DPNOTE ---
DCP Note CHEMICAL LAB SUPERVISOR reviewed EMR. Pt is POD 4 for elective right hip surgery. Per provider, electrolytes not good today. Dietary consulted. Surg consult for potential ulcer/potentially will need EGD. Per provider, pt reports smoking 3 joints per day for 30+years and symptoms may be due to withdrawals from THC. Per PT, pt moving too well to be considered home bound for HH. CHEMICAL LAB SUPERVISOR unable to meet with pt today due to triaging needs. Plan: likely home when medically stable with assistance from sister. CM team will follow as needed. JUSTYNA Malloy
--- NOTE | 2023-07-06 17:55 | PM.PN.1 ---
Subjective Subjective Interval history: Patient still having early satiety, epigastric pain and heartburn. Nausea and diarrhea improved with marinol. Planning for EGD tomorrow to look for gastric ulcer. Exam Vital Signs (past 8 hours): - 07/06/23 12:00 07/06/23 14:01 07/06/23 16:00 Temperature 99.1 F 97.9 F Pulse Rate 118 H 94 H 91 H Respiratory Rate 18 20 15 Blood Pressure 131/64 112/74 121/67 Pulse Oximetry 95 96 95 Oxygen Delivery Method Room Air Oxygen Flow Rate 0 0 Fraction of Inspired Oxygen 21 SaO2/FiO2 Ratio 461 Oxygen Delivery Method Room Air Oxygen Flow Rate 0 Narrative Exam Narrative: GEN: NAD HEENT: moist mucous membranes, PERRL NECK: trachea midline, no JVD CV: regular rate and rhythm, no murmurs PULM: clear bilaterally ABD: soft, epigastric abd pain, nondistended, no organomegaly EXT: warm and well perfused with no edema NEURO: awake, alert, oriented, no focal deficits Objective Labs 07/06/23 07:26 07/06/23 13:10 Labs: Laboratory Results - last 24 hr 07/05/23 07/06/23 07/06/23 16:29 07:26 13:10 WBC 7.5 RBC 2.57 L Hgb 7.7 L Hct 22.1 L MCV 86.0 MCH 29.9 MCHC 34.8 RDW 13.9 Plt Count 153 Neut % (Auto) 82.3 H Lymph % (Auto) 7.5 L [place] % (Auto) 10.1 Eos % (Auto) 0.0 L Baso % (Auto) 0.1 Neut # (Auto) 6200 Lymph # (Auto) 600 L [place] # (Auto) 800 Eos # (Auto) 0 Baso # (Auto) 0 Sodium 132 L 130 L Potassium 2.5 L* 3.2 L Chloride 94 L Carbon Dioxide 31 BUN 13 Creatinine 0.49 L Estimated GFR > 60 BUN/Creatinine Ratio 26.5 H Glucose 111 H Calcium 8.4 Magnesium 1.3 L 1.9 TSH 0.12 L Free T4 1.98 07/06/23 13:10 WBC RBC Hgb Hct MCV MCH MCHC RDW Plt Count Neut % (Auto) Lymph % (Auto) [place] % (Auto) Eos % (Auto) Baso % (Auto) Neut # (Auto) Lymph # (Auto) [place] # (Auto) Eos # (Auto) Baso # (Auto) Sodium Potassium 3.2 L Chloride 92 L Carbon Dioxide 32 BUN 16 Creatinine 0.61 Estimated GFR > 60 BUN/Creatinine Ratio 26.2 H Glucose 139 H Calcium 8.4 Magnesium TSH Free T4 PFSH Medical History (Updated 07/03/23 @ 11:25 by Quang Sadnoval PA-C) Easy bruisability Well adult exam Plantar warts Osteoarthritis (~1991) Shoulder pain Fractures (~1974) Chronic back pain Measles Chicken pox Vertigo Tinnitus Positive FIT (fecal immunochemical test) Right hip pain (01/2021) Depression (02/2019) Hypokalemia Post-menopause Serum calcium elevated Essential hypertension Migraine without aura or status migrainosus Fibromyalgia (~1989) History of iron deficiency anemia COPD (chronic obstructive pulmonary disease) with acute bronchitis Surgical History (Updated 07/03/23 @ 11:26 by Quang Sandoval PA-C) Anesthesia History of hip surgery (~1974) Family History Father Diabetes mellitus Hypertension Hyperlipidemia Stroke Mother Cancer Brother Cancer Social History household members: none Smoking Status: Current some day smoker Tobacco: How many years used: 35 second hand exposure: No alcohol intake: current substance use type: marijuana Assessment & Plan Assessment & Plan narrative: # possible PUD vs THC withdrawal -patient having abd pain, nausea, loose stools and bloating -may be withdrawing from THC, given she smoked daily for 40 years and her last joint was 3 days ago and has felt progressively worse since then -start marinol TID, seems to be improving nausea and diarrhea -start PPI, d/c ibuprofen in case of PUD -GI cocktail PRN -plan for EGD on 07/[address] Laws gen surg, NPO midnight # post-op anemia -Hgb downtrending, check guaiac -s/p 1 unit PRBC already -transfuse at Hgb <7 -Hgb now improved to 7.7' -trend CBC # orthostasis, improving -received IVF -hold home chlorthalidone, continue losartan for now -continue clonidine to avoid rebound tachycardia -qshift orthostatics -PT eval rec HH # hypokalemia and hypomag -replete # hypothyroidism -continue synthroid but lowered to 100mcg from 112 -TSH low but T4 normal # malnutrition -low electrolytes, albumin 2.8 -control officer manager consult Medicine will continue to follow. Thank you for allowing us to participate in the care of this patient. Should you have any questions, do not hesitate to speak with us directly or call us. Quality VTE Deep Vein Thrombosis/Pulmonary Embolism Present on Admission: No
[2023-07-06] MEDS: MELATONIN 3 MG TABLET 6 MG PO (21:04)
[2023-07-07] VITALS (12 sets, daily range): BP systolic 121–154; BP diastolic 61–78; PULSE 78–93; RESP 16–22; TEMP 36.2–37.7; O2SAT 94–98; BMI 22.2
--- NOTE | 2023-07-07 | PATH_ITS ---
[facility] Accession Number: [id number] No. of containers..01 Tissue . 01 Material submitted: . duodenum - DUODENUM . 01 Diagnosis: Duodenum, Biopsy: Duodenal mucosa with no diagnostic abnormality. Negative for active inflammation, features of sprue, dysplasia, or malignancy. [facility] 07/09/2023 1322 Local . 01 Electronically signed: . Josie Rubio MD, Pathologist NPI- [id number] . 01 Gross description: . DUODENUM: Received in formalin is 2 fragment(s) of reyes, soft tissue measuring 0.3 x 0.2 x 0.1 cm to 0.2 x 0.2 x 0.1 cm submitted entirely in 1 cassette(s) /AAY 07/08/2023 0520 Local . 01 Pathologist provided ICD-10: R19.5 . 01 CPT . 719043 Specimen Comment: A courtesy copy of this report has been sent to [phone] Performed at: 01 [facility] [address] [place] [address], [place], [place] [id number] MD Etienne Mckinnon MD Phone: [phone]
--- NOTE | 2023-07-07 00:16 | PC.NURSE ---
Addendum entered by Kailyn Pham R.N. 07/07/23 04:08: Complains of headache as well as right hip pain; requested/medicated with oxycodone + sumatriptan Original Note: Patient is alert and oriented. Breath sounds CTA with RA sat of 96%. HRR w/telemetry reading of ST. Orthostatics indicate BP does drop 10 points from lying to sitting. Denied nausea at time of assessment. BT present but has not had a BM since 07/02. Is voiding on toilet and denied dysuria. Is able to move herself in bed. Out of bed with walker and 1 assist. Does have residual numbness in right thigh related to nerve block for recent surgery. Aquacel dressing to right anterior thigh is CDI. CMS intact except for the numbness and is still only able to lift leg off bed 4-5. Is wearing bilateral calf SCD's. Complained of 5/10 right hip pain and was medicated earlier with oxycodone and is currently asleep. Fall risk score is high and bed alarm is activated. Is NPO at 0000 for impending EGD in the morning.
[2023-07-07] MEDS: SUMAtriptan 25 MG TABLET 50 MG PO (04:05)
[2023-07-07] MEDS: OXYCODONE IR 5 MG TABLET PO ×3 (04:06→16:22)
[2023-07-07] MEDS: LEVOTHYROXINE 100 MCG TABLET PO (06:04)
[2023-07-07] MEDS: ACETAMINOPHEN 325 MG TABLET 650 MG PO ×2 (06:04→16:22)
[2023-07-07 07:04] LABS: Add Manual Diff / Slide Review NO; Basophils Absolute Auto 0 /uL (0-100); Basophils Percent Auto 0.1 % (0-2); Eosinophils Absolute Auto 0 /uL (0-450); Eosinophils Percent Auto 0.4 % (2-4); Hematocrit 21.8 % (36-46); Hemoglobin 7.6 g/dL (12.0-16.0); Lymphocytes Absolute Auto 700 /uL (1100-4500); Lymphocytes Percent Auto 10.3 % (25-40); Mean Corpuscular HGB Conc 34.6 % (30-36); Mean Corpuscular Hemoglobin 29.6 PG (26-34); Mean Corpuscular Volume 85.5 fL (80-100); Monocytes Absolute Auto 700 /uL (0-900); Monocytes Percent Auto 10.4 % (3-14); Neutrophils Absolute Auto 5300 /uL (1500-7000); Neutrophils Percent Auto 78.8 % (50-75); Platelet Count 172 X10^3/uL (150-400); Red Blood Cell Count 2.56 X10^6/uL (4.0-5.2); White Blood Cell Count 6.8 X10^3/uL (4.5-11.0)
[2023-07-07 07:08] LABS: BUN Creatinine Ratio 35.3 (6-22); Blood Urea Nitrogen 18 mg/dL (7-17); Calcium 8.7 mg/dL (8.4-10.2); Carbon Dioxide 32 mmol/L (22-32); Chloride 94 mmol/L (98-107); Estimated Glomerular Filt Rate > 60 mL/min (>60); Glucose 81 mg/dL (80-110); HEMOLYSIS < 15 (0-50); Potassium 3.1 mmol/L (3.4-5.1); Sodium 131 mmol/L (137-145)
[2023-07-07 07:10] LABS: Magnesium 1.9 mg/dL (1.6-2.3)
--- NOTE | 2023-07-07 10:07 | SUR.PREOP ---
Spoke with Dr Laws on phone in OR#2.Gina Ayala called from floor with pt request for Tums for heartburn. See order for one time dose of Protonix (pt oral Protonix to start this evening). See new one time order
[2023-07-07] MEDS: PANTOPRAZOLE 40 MG VIAL 20 MG IV (10:32)
[2023-07-07] MEDS: SODIUM CHLORIDE 0.9% FLUSH 10 ML IV (10:33)
--- NOTE | 2023-07-07 10:35 | PT.IPTN ---
Current Diagnoses Anemia, unspecified (07/02/23) Unilateral primary osteoarthritis, right hip (07/02/23) Presence of right artificial hip joint (07/02/23) Surgery Performed Operation Date: 07/02/23 10:45 Actual Procedures p Total Hip Arthroplasty Anterior, HARDWARE REMOVAL(Right) - Jeet White MD Operation Date: 07/06/23 14:15 <No data on this case meets the specified criteria> Operation Date: 07/07/23 14:15 <No data on this case meets the specified criteria> Physical Therapy Treatment Note M2 PT-IP Current Condition Start: 07/04/23 08:44 Freq: NEEDED Status: Active Protocol: Document 07/05/23 12:20 SP (Rec: 07/05/23 16:34 SP [id number]) Physical Therapy Current Condition Current Condition Evaluation Date 07/04/23 Treatment Diagnosis Right anterior hip replacement s/p old ORIF M3 PT-IP Subjective Start: 07/04/23 08:44 Freq: NEEDED Status: Active Protocol: Document 07/07/23 10:36 TS (Rec: 07/07/23 10:52 TS [id number]) Subjective Physical Therapy Visit Type Type Treatment Note Visit Start Time 10:15 Visit Stop Time 10:35 Total Visit Minutes 20 Notes Bp sitting 138/70 Number of HIM TECH Visits 3 Physical Therapy Visit Comments Patient Comments Pt found resting in chair, reports feeling better this morning, is hoping to d/c today, is agreeable to PT. Patient Goals return home with sister tomorrow with HHPT Therapy Pain Assessment Pain When Pain Assessed During Mobility Pain Present Pain Present Pain Reported M4 PT-IP Mobility and Gait Start: 07/04/23 08:44 Freq: NEEDED Status: Active Protocol: Document 07/07/23 10:36 TS (Rec: 07/07/23 10:52 TS [id number]) PT-Bed Mobility Assessment Sit to Supine Sit to Supine Standby Assistance,Bedrails PT-Transfer Assessment Sit to and From Stand Sit to and from Stand Standby Assistance,Use of Upper Extremities Equipment Transfer Assistive Device Gait Belt,Front Wheeled Walker Orthotic/Prosthetic Devices or Brace: No Comments Mobility Comments Pt found resting in chair, is agreeable to PT. Sit to stand from chair SBA with FWW, pt demonstrates good carryover of sequencing. She ambulated ~ 200'SBA with step to antalgic gait, pt denied any lightheadedness or dizziness. She performed stairs x3 with B handrail assist SBA/CGA, pt required cues for proper step sequencing. Pt ambulated back to room, sit to supine SBA with use of rails. Pt was left in bed, RN tending to needs. Gait Assessment Gait Gait Assistance Required: Standby Assistance Distance (Feet) 200 Able to Maintain Weight Bearing Status Yes During Gait Assistive Devices Assistive Device Gait Belt,Front Wheeled Walker Orthotic/Prosthetic Devices or Brace: No Gait Deviations General Gait Pattern Antalgic,Decreased Stride Length,Flexed Trunk,Step-to Gait Factors Limiting Gait Function Factors Limiting Gait Function Decreased Activity Tolerance, Decreased Strength,Limited Range of Motion,Pain,Poor Safety Awareness Comments Gait Comments see mobiltiy comments Stair Climbing Assessment Evaluation Level of Assist On Stairs Standby Assistance,Contact Guard Assistance Devices Stair Climbing Assistive Devices Left Railing,Right Railing Technique/Endurance Stair Climbing Direction Ascend and Descend Stair Climbing Technique Step to Step Number of Steps Climbed 3 Comments Stair Climbing Comments See mobility comments. PT-Balance Assessment Sitting Balance and Reactions Static Sitting Balance Ability Good Dynamic Sitting Balance Ability Good Standing Balance and Reactions Static Standing Balance Ability Fair Dynamic Standing Balance Ability Fair Device Used RW M5 PT-IP Objective Assessments Start: 07/04/23 08:44 Freq: NEEDED Status: Active Protocol: Document 07/04/23 11:50 MB (Rec: 07/04/23 12:12 MB [id number]) Orientation Orientation/Cognition Level of Alertness Alert Orientation Name,Age,Birthday,Month,Date, Year,Day of Week,Place, Situation Language Function Ability No Deficits Noted Safety Awareness Understands Safety Issues Memory Description No Deficits Noted Gross Range of Motion Upper Extremity ROM Assessment Within Functional Limits Lower Extremity ROM Assessment Right Impaired Strength Upper Extremity Strength Assessment Within Functional Limits Lower Extremity Strength Assessment Right Impaired Comments Strength Comments MMT deferred post-op with right ankle and knee grossly WNLs M6 PT-IP Treatment Start: 07/04/23 08:44 Freq: NEEDED Status: Active Protocol: Document 07/07/23 10:36 TS (Rec: 07/07/23 10:52 TS [id number]) Physical Therapy Treatment Education Education Provided Precautions,Weight Bearing Status,Post-Op Packet,Safety M7 PT-IP Assessment and Plan Start: 07/04/23 08:44 Freq: NEEDED Status: Active Protocol: Document 07/07/23 10:36 TS (Rec: 07/07/23 10:52 TS [id number]) PT Summary Assessment and Plan Potential Rehabilitation Potential Good Summary Impairments Strength,Balance,Bed Mobility, Transfers,Gait,Activity Tolerance Progress Towards Goals Progressing Toward Goals Assessment Summary Tweet continues to make good progress with her mobility. She progressed her ambulation to ~200'SBA with FWW, denied any lightheadedness. She performed stairs x3 with B rails ascending/descending, had no buckling or LOB. She demonstrates good safety awareness with her mobility and of her precautions. PT is recommending pt return home with assist and oupatient PT. Goals Bed Mobility Goal Independent Transfer Goal Independent,Front Wheeled Walker Gait Goal Independent,Front Wheel Walker Gait Distance 100 Other Goals Pt will ascend and descend 4 steps with rail of choice and no more than superv assistance to allow safe home entrance. Progress to LRAD and increase gait distance as appropriate. Days to Meet Goals 4 Frequency of Treatment Frequency Of Treatment Twice a Day Treatment Plan Physical Therapy Treatment Plan Bed Mobility Training,Transfer Training,Gait Training, Therapeutic Exercise,Balance Retraining,Post Op Education, Hot or Cold Pack Other Recommendations and Next Treatment Continue to progress gait, Focus stairs, post-op ex. Precautions Anterior Hip Precautions No Hip Extension,No Hip External Rotation Weight Bearing Status Weight Bearing Status Weight Bear as Tolerated Recommendations To Nursing Amount of Assist Needed 1 Person Assist Discharge Recommendations PT Discharge Recommendations Home with Assistance, Outpatient PT Transportation Needs at Discharge Private Vehicle
[2023-07-07] MEDS: IPRATROPIUM 0.5 MG/2.5 ML NEB INH (11:01)
--- NOTE | 2023-07-07 12:36 | PM.PNPO.1 ---
Subjective Subjective Date Patient Seen: 07/07/23 Time Patient Seen: 07:15 Interval history: Amalia is a pleasant 67 year old female who is POD#5 s/p a conversion right total hip arthroplasty from prior acetabular open reduction internal fixation with removal of hardware done by Dr. White. Overall patient reports she is doing well and express desire to be d/c to home, she states that her sister will be staying with her at home to help with her recovery during her immediate post-op period. Patient has 4 steps at home. Minimal pain to hip at this time and states it is well controlled with her oral medications. States she has not walked around the hospital hallways yet or done stairs, she has only walked around her room with PT. No issues with urinating on her own or having BM. Patient reports she will having an EGD done later today to evaluate for GI bleed given her recent GI symptoms and anemia. Denies nausea, vomiting, diarrhea, chest pain, SOB, fever, chills, light headedness. Admits to feeling tired and having mild cough with clear production but states she has been consistent with using her respiratory incentive spirometer throughout the day. Exam Vital Signs (past 8 hours): - 07/07/23 08:00 07/07/23 09:45 07/07/23 11:08 Temperature 98.4 F Pulse Rate 81 92 H Respiratory Rate 18 16 Blood Pressure 135/66 Pulse Oximetry 96 98 Oxygen Delivery Method Room Air Room Air Fraction of Inspired Oxygen 21 SaO2/FiO2 Ratio 461 Oxygen Delivery Method Room Air Oxygen Flow Rate 0 Const General: cooperative, healthy appearing and comfortable Resp Effort & Inspection: normal respiratory effort and able to speak in complete sentences Cardio Rate: regular rate Skin General: no rashes or lesions noted Other: Clean and dry dressing intact along anterior hip. Neuro General: patient alert, patient awake and patient oriented x3 Other: Sensation intact to all toes bilaterally. Extrem Other: 5/5 strength with dorsi and plantar flexion. 5/5 strength with knee flexion and extension. Calves soft and non-tender bilaterally with out swelling. Psych Appearance: grossly normal Affect: normal affect Objective Labs 07/07/23 06:05 07/07/23 06:05 Labs: Laboratory Results - last 24 hr 07/06/23 07/06/23 07/07/23 13:10 13:10 06:05 WBC 6.8 RBC 2.56 L Hgb 7.6 L Hct 21.8 L MCV 85.5 MCH 29.6 MCHC 34.6 RDW 14.0 Plt Count 172 Neut % (Auto) 78.8 H Lymph % (Auto) 10.3 L [place] % (Auto) 10.4 Eos % (Auto) 0.4 L Baso % (Auto) 0.1 Neut # (Auto) 5300 Lymph # (Auto) 700 L [place] # (Auto) 700 Eos # (Auto) 0 Baso # (Auto) 0 Sodium 130 L 131 L Potassium 3.2 L 3.2 L 3.1 L Chloride 92 L 94 L Carbon Dioxide 32 32 BUN 16 18 H Creatinine 0.61 0.51 L Estimated GFR > 60 > 60 BUN/Creatinine Ratio 26.2 H 35.3 H Glucose 139 H 81 Calcium 8.4 8.7 Magnesium 1.9 PFSH Medical History Easy bruisability Well adult exam Plantar warts Osteoarthritis (~1991) Shoulder pain Fractures (~1974) Chronic back pain Measles Chicken pox Vertigo Tinnitus Positive FIT (fecal immunochemical test) Right hip pain (01/2021) Depression (02/2019) Hypokalemia Post-menopause Serum calcium elevated Essential hypertension Migraine without aura or status migrainosus Fibromyalgia (~1989) History of iron deficiency anemia COPD (chronic obstructive pulmonary disease) with acute bronchitis Surgical History Anesthesia History of hip surgery (~1974) Family History Father Diabetes mellitus Hypertension Hyperlipidemia Stroke Mother Cancer Brother Cancer Social History household members: none Smoking Status: Former smoker Tobacco: How many years used: 35 second hand exposure: No alcohol intake: current substance use type: marijuana Assessment & Plan Post-op Postoperative Procedures: Procedures Operation Date: 07/02/23 10:45 Actual Procedure Side Surgeon p Total Hip Arthroplasty Anterior, HARDWARE REMOVAL Right Jeet White MD Operation Date: 07/06/23 14:15 <No data on this case meets the specified criteria> Operation Date: 07/07/23 14:15 <No data on this case meets the specified criteria> Postoperative day: 5 Postoperative status narrative: Stable, good pain control. Postoperative plan narrative: -Continue to work on mobilization, would like pt to see PT prior to d/c today if possible, otherwise continue to work with outpatient PT once d/c -Anterior hip precautions (refrain from simultaneous maximum external rotation and hyperextension of the hip). Weightbearing as tolerated -Keep dressing clean and dry -Aspirin 81 twice per day for DVT prophylaxis -Okay to d/c to home today if cleared by medicine pending results of EGD. -Follow up at [facility] in 2 weeks Quality VTE Deep Vein Thrombosis/Pulmonary Embolism Present on Admission: No
--- NOTE | 2023-07-07 13:42 | PT-IP ANOTE ---
Pt to have medical procedure this afternoon, will hold PT. PT will check on pt tomorrow if still in hospital.
[2023-07-07] MEDS: LACTATED RINGERS 1,000 ML 42 ML IV (14:50)
--- NOTE | 2023-07-07 14:53 | PM.CN ---
History of Present Illness Consult details Date Patient Seen: 07/07/23 Time Patient Seen: 14:53 Chief complaint: INPT Narrative: 67-year-old woman not on anticoagulation who underwent a right total hip arthroplasty 5 days ago. She would acute blood loss anemia baseline hematocrit 40 currently 22 receive 1 unit packed red blood cells. Hematocrit has remained stable over the past several days. She reports intermittent epigastric pain and found to have guaiac-positive stool. No chapis blood in stool her epigastric pain has improved. Consulted for esophagoduodenoscopy to evaluate/rule out gastritis/peptic ulcer disease. Meds Home Medications and Allergies Home Medications Medication Instructions Recorded Confirmed Type cholecalciferol (vitamin D3) 125 125 mcg PO DAILY 01/10/20 06/17/23 History mcg (5,000 unit) capsule chlorthalidone 25 mg tablet See Rx Instructions .Route 09/22/22 07/02/23 Rx .COMPLEX #90 tabs levalbuterol tartrate 45 2 puff inhalation Q4-6H PRN 03/31/23 07/02/23 Rx mcg/actuation aerosol inhaler shortness of breath or wheezing #15 grams levothyroxine 112 mcg tablet 112 mcg PO DAILY #90 tabs 03/31/23 07/02/23 Rx tiotropium bromide 2.5 See Rx Instructions .Route 03/31/23 07/02/23 Rx mcg/actuation mist for inhalation .COMPLEX #12 grams (Spiriva Respimat) sumatriptan succinate 100 mg tablet See Rx Instructions PO .COMPLEX 04/15/23 06/17/23 Rx #20 tabs potassium chloride 10 mEq See Rx Instructions .Route 05/05/23 07/02/23 Rx capsule,extended release .COMPLEX #180 caps losartan 100 mg tablet See Rx Instructions .Route 05/24/23 07/02/23 Rx .COMPLEX #90 tabs Dulera 200 mcg-5 mcg/actuation HFA 2 puff inhalation BID #8.8 grams 06/01/23 07/02/23 Rx aerosol inhaler (mometasone-formoterol) albuterol sulfate 90 mcg/actuation 2 puff inhalation Q4-6H PRN 06/17/23 07/02/23 History aerosol inhaler Shortness Of Breath lidocaine 5 % topical patch 1 patch topical DAILY PRN Pain 06/17/23 07/02/23 History clonidine HCl 0.1 mg tablet 0.1 mg PO BID 07/02/23 07/02/23 History Allergies Allergy/AdvReac Type Severity Reaction Status Date / Time fluticasone AdvReac Severe SWOLLEN Verified 07/02/23 09:03 [From ADVAIR DISKUS] THROAT salmeterol AdvReac Severe SWOLLEN Verified 07/02/23 09:03 [From ADVAIR DISKUS] THROAT sertraline AdvReac Severe increased Verified 07/02/23 09:03 depression tramadol [TRAMADOL] AdvReac Severe hot flashes Verified 07/02/23 09:03 Exam Vital Signs (past 8 hours): - 07/07/23 08:00 07/07/23 09:45 07/07/23 11:08 Temperature 98.4 F Pulse Rate 81 92 H Pulse Rate [Orthostatic Lying] Pulse Rate [Orthostatic Sitting] Respiratory Rate 18 16 Blood Pressure 135/66 Blood Pressure [Orthostatic Lying] Blood Pressure [Orthostatic Sitting] Pulse Oximetry 96 98 Oxygen Delivery Method Room Air Room Air 07/07/23 11:30 07/07/23 12:00 07/07/23 14:51 Temperature 98.3 F 99.9 F H Pulse Rate 85 90 Pulse Rate [Orthostatic Lying] 81 Pulse Rate [Orthostatic Sitting] 85 Respiratory Rate 18 16 Blood Pressure 146/78 H 131/70 Blood Pressure [Orthostatic Lying] 135/66 Blood Pressure [Orthostatic Sitting] 146/78 H Pulse Oximetry 96 97 Oxygen Delivery Method Room Air Fraction of Inspired Oxygen 21 SaO2/FiO2 Ratio 461 Oxygen Delivery Method Room Air Oxygen Flow Rate 0 Narrative Exam Narrative: General adult woman alert oriented no acute distress Chest nonlabored respiration Abdomen soft nontender nondistended Extremitieswarm well perfused Objective Labs 07/07/23 06:05 07/07/23 06:05 Labs: Laboratory Results - last 24 hr 07/07/23 06:05 WBC 6.8 RBC 2.56 L Hgb 7.6 L Hct 21.8 L MCV 85.5 MCH 29.6 MCHC 34.6 RDW 14.0 Plt Count 172 Neut % (Auto) 78.8 H Lymph % (Auto) 10.3 L [place] % (Auto) 10.4 Eos % (Auto) 0.4 L Baso % (Auto) 0.1 Neut # (Auto) 5300 Lymph # (Auto) 700 L [place] # (Auto) 700 Eos # (Auto) 0 Baso # (Auto) 0 Sodium 131 L Potassium 3.1 L Chloride 94 L Carbon Dioxide 32 BUN 18 H Creatinine 0.51 L Estimated GFR > 60 BUN/Creatinine Ratio 35.3 H Glucose 81 Calcium 8.7 Magnesium 1.9 PFSH Medical History Easy bruisability Well adult exam Plantar warts Osteoarthritis (~1991) Shoulder pain Fractures (~1974) Chronic back pain Measles Chicken pox Vertigo Tinnitus Positive FIT (fecal immunochemical test) Right hip pain (01/2021) Depression (02/2019) Hypokalemia Post-menopause Serum calcium elevated Essential hypertension Migraine without aura or status migrainosus Fibromyalgia (~1989) History of iron deficiency anemia COPD (chronic obstructive pulmonary disease) with acute bronchitis Surgical History Anesthesia History of hip surgery (~1974) Family History Father Diabetes mellitus Hypertension Hyperlipidemia Stroke Mother Cancer Brother Cancer Social History household members: none Tobacco & Substance Use Smoking Status: Former smoker Tobacco: How many years used: 35 second hand exposure: No alcohol intake: current substance use type: marijuana Assessment & Plan Assessment and plan (1) History of iron deficiency anemia: Status: Resolved Assessment & Plan narrative: 67-year-old woman postoperative day 5 status post total hip arthroplasty with acute blood loss anemia and epigastric pain. Consulted for requested EGD to evaluate rule/out peptic ulcer disease gastritis. Overview of the procedure was discussed with the patient. Procedural risks including hemorrhage, intestinal injury were discussed. Questions have been answered she is in agreement with this plan. She provides a written and verbal consent to proceed.
--- NOTE | 2023-07-07 15:25 | CM.DPC ---
DCP Cont. Reviewed EMR and team rounds for status updates. Pt is having a planned EGD today due to uppergastric pain and chapis blood in her stool. Will continue to monitor for evolving d/c needs. Plan for now is to d/c home with OP PT and her sister providing care assistance needs.
--- NOTE | 2023-07-07 15:30 | PM.OP.EGD ---
Operative Date/Time/Diagnoses Date of procedure: 07/07/23 Time of procedure: 15:31 Pre-op diagnosis: acute anemia epigastric pain Post-op diagnosis: other (gastritis, duodenitis) Procedure & Clinicians Study performed: Esophagoduodenoscopy Same procedure as scheduled: Yes Indications: 67-year-old woman 5 days postop right total hip arthroplasty with anemia and acute epigastric pain. Surgeon: Marvel Laws Procedure Notes Procedure in detail: The history and physical was performed/updated and the patient is ASA class is 3. The procedure was discussed in detail with the patient. Potential risks complications including infection, bleeding, missed diagnosis, perforation, need for surgery, and were explained. Their questions were answered and informed consent was obtained. Patient placed in left lateral decubitus position. Time out was performed. Procedural sedation was administered by Anesthesia. A bite block was placed. the scope was inserted into the mouth and advanced through the esophagus and into the stomach. The pylorus was intubated and the duodenum was examined to the 2nd portion. The duodenum was biopsied with forceps. The scope was then withdrawn into the stomach and was retroflexed. The stomach was decompressed and scope was withdrawn slowly through the esophagus. FINDINGS -Diffuse gastritis and duodenitis -No distinct ulcer or active hemorrhage The patient tolerated the procedure well and will be discharged when they meet criteria. Specimen(s): other (duodenum) Complications: none Impression: gastritis, duodenititis Post-procedure Plan for aftercare: Omeprazole 20 mg BID x 30 days at discharge Disposition: Acute Care
--- NOTE | 2023-07-07 15:39 | PM.PN.1 ---
Subjective Subjective Interval history: Patient underwent EGD today which showed diffuse gastritis and duodenitis but no active bleeding or ulcer. Recommend PPI BID x30 days. Patient can dc from medicine standpoint. Exam Vital Signs (past 8 hours): - 07/07/23 08:00 07/07/23 09:45 07/07/23 11:08 Temperature 98.4 F Pulse Rate 81 92 H Pulse Rate [Orthostatic Lying] Pulse Rate [Orthostatic Sitting] Respiratory Rate 18 16 Blood Pressure 135/66 Blood Pressure [Orthostatic Lying] Blood Pressure [Orthostatic Sitting] Pulse Oximetry 96 98 Oxygen Delivery Method Room Air Room Air 07/07/23 11:30 07/07/23 12:00 07/07/23 14:51 Temperature 98.3 F 99.9 F H Pulse Rate 85 90 Pulse Rate [Orthostatic Lying] 81 Pulse Rate [Orthostatic Sitting] 85 Respiratory Rate 18 16 Blood Pressure 146/78 H 131/70 Blood Pressure [Orthostatic Lying] 135/66 Blood Pressure [Orthostatic Sitting] 146/78 H Pulse Oximetry 96 97 Oxygen Delivery Method Room Air Fraction of Inspired Oxygen 21 SaO2/FiO2 Ratio 461 Oxygen Delivery Method Room Air Oxygen Flow Rate 0 Narrative Exam Narrative: General adult woman alert oriented no acute distress Chest nonlabored respiration Abdomen soft nontender nondistended Extremitieswarm well perfused Objective Labs 07/07/23 06:05 07/07/23 06:05 Labs: Laboratory Results - last 24 hr 07/07/23 06:05 WBC 6.8 RBC 2.56 L Hgb 7.6 L Hct 21.8 L MCV 85.5 MCH 29.6 MCHC 34.6 RDW 14.0 Plt Count 172 Neut % (Auto) 78.8 H Lymph % (Auto) 10.3 L [place] % (Auto) 10.4 Eos % (Auto) 0.4 L Baso % (Auto) 0.1 Neut # (Auto) 5300 Lymph # (Auto) 700 L [place] # (Auto) 700 Eos # (Auto) 0 Baso # (Auto) 0 Sodium 131 L Potassium 3.1 L Chloride 94 L Carbon Dioxide 32 BUN 18 H Creatinine 0.51 L Estimated GFR > 60 BUN/Creatinine Ratio 35.3 H Glucose 81 Calcium 8.7 Magnesium 1.9 PFSH Medical History Easy bruisability Well adult exam Plantar warts Osteoarthritis (~1991) Shoulder pain Fractures (~1974) Chronic back pain Measles Chicken pox Vertigo Tinnitus Positive FIT (fecal immunochemical test) Right hip pain (01/2021) Depression (02/2019) Hypokalemia Post-menopause Serum calcium elevated Essential hypertension Migraine without aura or status migrainosus Fibromyalgia (~1989) History of iron deficiency anemia COPD (chronic obstructive pulmonary disease) with acute bronchitis Surgical History Anesthesia History of hip surgery (~1974) Family History Father Diabetes mellitus Hypertension Hyperlipidemia Stroke Mother Cancer Brother Cancer Social History household members: none Smoking Status: Former smoker Tobacco: How many years used: 35 second hand exposure: No alcohol intake: current substance use type: marijuana Assessment & Plan Assessment & Plan narrative: # possible PUD vs THC withdrawal -patient having abd pain, nausea, loose stools and bloating -may be withdrawing from THC, given she smoked daily for 40 years and her last joint was 3 days ago and has felt progressively worse since then -start marinol TID, seems to be improving nausea and diarrhea -start PPI, d/c ibuprofen in case of PUD -GI cocktail PRN -EGD on 07/07 with diffuse gastritis/duodenitis, no ulcer or bleeding -PPI x30 days # post-op anemia -Hgb downtrending, check guaiac -s/p 1 unit PRBC already -transfuse at Hgb <7 -Hgb now improved to 7.6 -Hgb stable # orthostasis, resolved -received IVF -hold home chlorthalidone, continue losartan for now -continue clonidine to avoid rebound tachycardia -qshift orthostatics -PT eval rec HH PT/OT # hypokalemia and hypomag -replete # hypothyroidism -continue synthroid but lowered to 100mcg from 112 -TSH low but T4 normal # malnutrition -low electrolytes, albumin 2.8 -business banking representative consult Medicine will sign off today. Thank you for allowing us to participate in the care of this patient. Should you have any further questions, do not hesitate to speak with us directly or call us. Quality VTE Deep Vein Thrombosis/Pulmonary Embolism Present on Admission: No
--- NOTE | 2023-07-07 15:49 | P.DS_ITS ---
History of Present Illness History of Present Illness Date Patient Seen: 07/07/23 Time Patient Seen: 15:50 Chief complaint: Hip pain Narrative: See progress note Discharge Providers Provider Date of admission: 07/02/23 08:38 Discharge Date: 07/07/23 Primary care physician: Korey Saenz DO Consults: 06/17/23 15:01 Consult to Anesthesiology Routine Comment: Consulting Provider: Anesthesiologist Reason for consultation: PAC courtesy re: Pulmonary history 07/02/23 06:00 Consult to Anesthesiology Routine Comment: Consulting Provider: Anesthesiologist Reason for consultation: Regional block for post operative pain control 07/02/23 17:43 Consult to Discharge Planning Routine Comment: Consult to Physical Therapy Evaluate & Treat Comment: Physician Instructions: post op TOMAS protocol 07/05/23 17:11 Consult to Dietitian, Adult Routine Comment: Reason For Exam: screen for malnutrition 07/06/23 08:01 Consult to Hospitalist Service Routine Comment: Consulting Provider: Gigi Guerra Reason for consultation: n/v electolyte imbalance Has provider been notified: Yes 07/06/23 11:54 Consult to General Surgery Routine Comment: Consulting Provider: Marvel Laws Reason for consultation: needs EGD Has provider been notified: Yes Discharge provider: Veto Cruz PA-C Summary Hospital Course Discharge Diagnosis: Posttraumatic right hip arthritis, GI upset likely due to withdrawing from THC, postop anemia, acute likely from acute blood loss during surgery, hypokalemia. Hospital Course: Conversion right total hip arthroplasty from prior acetabular open reduction internal fixation with removal of hardware Same procedure as scheduled: Yes Surgeon: Jeet White Online Editor: Zeina Braswell Anesthesia Type: Spinal and Local Operative Notes Estimated Blood Loss (mL): 600 Blood products transfused: none Procedure in detail: Implants: Depuy Total Hip Arthroplasty: * Depuy [place] Gription size 66 multi hole cup with 4 screws * Depuy Actis femoral stem size 5 standard offset? * 36 mm +1.5 ceramic femoral head? Patient admitted to the hospital for conversion right total hip arthroplasty from prior acetabular open reduction internal fixation with removal of hardware. Patient consented to the same. Patient underwent procedure by Dr. Rakesh gunter on July 02, 2023. Patient was slow to progress. She is found to have anemia likely due to acute blood loss during surgery and received 1 unit of packed red blood cells on July 03, 2022. Her H&H responded well. She continued to have some GI upset nausea vomiting and hypotension. Consultation provided by hospitalist on July 05, 2023. Patient found to have GI upset likely due to withdrawing from THC. Recommended to discontinue ibuprofen and start PPI which she will be discharged home with. Postop anemia and received 1 unit of packed red blood cells. HH improved however then trended down. Consultation by Dr. Laws was provided on July 06, 2023. It is recommended by Dr. Laws the patient have EGD to evaluate/rule out peptic ulcer disease gastritis. Preop diagnosis for ADD acute anemia postop diagnosis gastritis. Home with omeprazole 20 mg b.i.d. times 30 days at discharge. Patient should follow up with primary care provider prior to this time to assess for further need of PPI. Physical therapy worked with her this morning she has currently a 1 person assist. Patient will be discharged home today in stable condition. Exam Vital Signs (past 8 hours): - 07/07/23 08:00 07/07/23 09:45 07/07/23 11:08 Temperature 98.4 F Pulse Rate 81 92 H Pulse Rate [Orthostatic Lying] Pulse Rate [Orthostatic Sitting] Respiratory Rate 18 16 Blood Pressure 135/66 Blood Pressure [Orthostatic Lying] Blood Pressure [Orthostatic Sitting] Pulse Oximetry 96 98 Oxygen Delivery Method Room Air Room Air 07/07/23 11:30 07/07/23 12:00 07/07/23 14:51 Temperature 98.3 F 99.9 F H Pulse Rate 85 90 Pulse Rate [Orthostatic Lying] 81 Pulse Rate [Orthostatic Sitting] 85 Respiratory Rate 18 16 Blood Pressure 146/78 H 131/70 Blood Pressure [Orthostatic Lying] 135/66 Blood Pressure [Orthostatic Sitting] 146/78 H Pulse Oximetry 96 97 Oxygen Delivery Method Room Air 07/07/23 15:37 07/07/23 15:39 07/07/23 15:45 Temperature 98.6 F 98.6 F Pulse Rate 78 81 86 Pulse Rate [Orthostatic Lying] Pulse Rate [Orthostatic Sitting] Respiratory Rate 20 22 22 Blood Pressure 144/74 H 145/75 H 151/75 H Blood Pressure [Orthostatic Lying] Blood Pressure [Orthostatic Sitting] Pulse Oximetry 94 95 94 Oxygen Delivery Method Room Air Room Air Room Air Fraction of Inspired Oxygen 21 SaO2/FiO2 Ratio 461 Oxygen Delivery Method Room Air Oxygen Flow Rate 0 Narrative Exam Narrative: See progress note Objective Labs 07/07/23 06:05 07/07/23 06:05 Labs: Laboratory Results - last 24 hr 07/07/23 06:05 WBC 6.8 RBC 2.56 L Hgb 7.6 L Hct 21.8 L MCV 85.5 MCH 29.6 MCHC 34.6 RDW 14.0 Plt Count 172 Neut % (Auto) 78.8 H Lymph % (Auto) 10.3 L [place] % (Auto) 10.4 Eos % (Auto) 0.4 L Baso % (Auto) 0.1 Neut # (Auto) 5300 Lymph # (Auto) 700 L [place] # (Auto) 700 Eos # (Auto) 0 Baso # (Auto) 0 Sodium 131 L Potassium 3.1 L Chloride 94 L Carbon Dioxide 32 BUN 18 H Creatinine 0.51 L Estimated GFR > 60 BUN/Creatinine Ratio 35.3 H Glucose 81 Calcium 8.7 Magnesium 1.9 PFSH Medical History Easy bruisability Well adult exam Plantar warts Osteoarthritis (~1991) Shoulder pain Fractures (~1974) Chronic back pain Measles Chicken pox Vertigo Tinnitus Positive FIT (fecal immunochemical test) Right hip pain (01/2021) Depression (02/2019) Hypokalemia Post-menopause Serum calcium elevated Essential hypertension Migraine without aura or status migrainosus Fibromyalgia (~1989) History of iron deficiency anemia COPD (chronic obstructive pulmonary disease) with acute bronchitis Surgical History Anesthesia History of hip surgery (~1974) Family History Father Diabetes mellitus Hypertension Hyperlipidemia Stroke Mother Cancer Brother Cancer Social History household members: none Smoking Status: Former smoker Tobacco: How many years used: 35 second hand exposure: No alcohol intake: current substance use type: marijuana Discharge Assessment & Plan Assessment and Plan Assessment: Improving Plan of Treatment: Anterior hip precautions Multimodal pain management, avoid NSAIDs Home on PPI Aspirin 81 mg b.i.d. for DVT prophylaxis Follow up with primary care provider 10-14 days. Follow up outpatient Orthopedics as scheduled in 2 weeks. Discharge home today. Discharge Plan Discharge Plan Patient Disposition: Home Provider Discharge Comment: Detailed postoperative instructions at: [email or web address] You had an EGD which showed no bleeding ulcer, but inflammation from chronic heartburn. You will now be on prilosec twice daily for 1 month. Nursing Discharge Comment: Walk, ice and cough and deep breath every 2 hours while awake. Discharge orders & Medications Prescriptions: New omeprazole 20 mg capsule,delayed release(DR/EC) 20 mg PO BID Qty: 60 0RF Continued chlorthalidone 25 mg tablet See Rx Instructions .ROUTE .COMPLEX Qty: 90 2RF Dose Instruction: TAKE 1 TABLET BY MOUTH DAILY Rx Instructions: TAKE 1 TABLET BY MOUTH DAILY levothyroxine 112 mcg tablet 112 mcg PO DAILY Qty: 90 2RF Spiriva Respimat 2.5 mcg/actuation mist See Rx Instructions .ROUTE .COMPLEX Qty: 12 3RF Dose Instruction: USE 2 INHALATIONS BY MOUTH IN THE MORNING Rx Instructions: USE 2 INHALATIONS BY MOUTH IN THE MORNING levalbuterol tartrate 45 mcg/actuation HFA aerosol inhaler 2 puff INHALATION Q4-6H PRN (Reason: shortness of breath or wheezing) Qty: 15 3RF sumatriptan succinate 100 mg tablet See Rx Instructions PO .COMPLEX Qty: 20 1RF Rx Instructions: take 1 tab at onset of headache; if no relief, may repeat 1 tab after at least 2 hrs; max = 2 tabs/24 hrs PO losartan 100 mg tablet See Rx Instructions .ROUTE .COMPLEX Qty: 90 3RF Dose Instruction: TAKE 1 TABLET BY MOUTH DAILY Rx Instructions: TAKE 1 TABLET BY MOUTH DAILY Dulera 200-5 mcg/actuation HFA aerosol inhaler 2 puff inhalation BID Qty: 8.8 3RF potassium chloride 10 mEq capsule, extended release See Rx Instructions .ROUTE .COMPLEX Qty: 180 3RF Dose Instruction: TAKE 1 CAPSULE BY MOUTH ONE DAY AND 2 CAPSULES THE FOLLOWING DAY, REPEAT THIS ALTERNATING DOSE Rx Instructions: TAKE 2 CAPSULES by mouth daily cholecalciferol (vitamin D3) 125 mcg (5,000 unit) capsule 125 mcg PO DAILY albuterol sulfate 90 mcg/actuation Hfa Aerosol Inhaler 2 puff INHALATION Q4-6H PRN (Reason: Shortness Of Breath) lidocaine 5 % adhesive patch,medicated 1 patch topical DAILY PRN (Reason: Pain) Rx Instructions: leave on most painful area for up to 12 hrs clonidine HCl 0.1 mg tablet 0.1 mg PO BID Pharmacist Comment: Prescription sent previously from our clinic Follow up/Referrals: Korey Saenz DO [Primary Care Provider] - Jeet White MD [Physician] - As previously scheduled (2 weeks as scheduled) Diet/Activity/Treatments Diet: Diet as Tolerated Activity: Weightbearing as tolerated. Anterior hip precautions. Cold/Heat Therapy: Ice to hip as needed for pain. Skin/Wound/Dressing Care Report to your healthcare provider any signs of infection, such as:: chills, fever, night sweats, unusual drainage and unusual redness Dressing: May shower. Leave dressing in place until follow up in office. No bathing or otherwise soaking incision. Call the office if the dressing becomes saturated inside. Visit Report/Discharge Packet Instructions: DI for Hip Replacement Stand Alone Forms: Patient Portal/API, Stroke Signs & Symptoms, Surgery Discharge Discharge Data Primary Care Provider: Korey Saenz Quality VTE Deep Vein Thrombosis/Pulmonary Embolism Present on Admission: No
[2023-07-07] MEDS: POTASSIUM CHLORIDE 20 MEQ TAB 40 MEQ PO (16:22)
--- NOTE | 2023-07-07 16:35 | PM.PN.1 ---
Subjective Subjective Interval history: Patient seen several times a day as well as yesterday evening. She has been doing better. There were some concerns regarding her GI symptoms which prompted an EGD. That was performed today. I discussed the results with the general surgeon who performed it. He said there were no concerning features although her stomach did appear irritated. He recommended discharge with proton pump inhibitors. Her symptoms have improved considerably since the addition of Marinol to her medication regimen. I discussed marijuana usage postoperatively with her. Given her long-term usage, of which I was completely unaware prior to the surgery, I have recommended that she use formulations which do not contain any smoke during her recovery. [place] to get back there today. Exam Vital Signs (past 8 hours): - 07/07/23 09:45 07/07/23 11:08 07/07/23 11:30 Temperature Pulse Rate 92 H Pulse Rate [Orthostatic Lying] 81 Pulse Rate [Orthostatic Sitting] 85 Respiratory Rate 16 Blood Pressure Blood Pressure [Orthostatic Lying] 135/66 Blood Pressure [Orthostatic Sitting] 146/78 H Pulse Oximetry 98 Oxygen Delivery Method Room Air Room Air 07/07/23 12:00 07/07/23 14:51 07/07/23 15:37 Temperature 98.3 F 99.9 F H 98.6 F Pulse Rate 85 90 78 Pulse Rate [Orthostatic Lying] Pulse Rate [Orthostatic Sitting] Respiratory Rate 18 16 20 Blood Pressure 146/78 H 131/70 144/74 H Blood Pressure [Orthostatic Lying] Blood Pressure [Orthostatic Sitting] Pulse Oximetry 96 97 94 Oxygen Delivery Method Room Air Room Air 07/07/23 15:39 07/07/23 15:45 07/07/23 15:51 Temperature 98.6 F Pulse Rate 81 86 83 Pulse Rate [Orthostatic Lying] Pulse Rate [Orthostatic Sitting] Respiratory Rate 22 22 20 Blood Pressure 145/75 H 151/75 H 153/74 H Blood Pressure [Orthostatic Lying] Blood Pressure [Orthostatic Sitting] Pulse Oximetry 95 94 95 Oxygen Delivery Method Room Air Room Air Room Air Fraction of Inspired Oxygen 21 SaO2/FiO2 Ratio 461 Oxygen Delivery Method Room Air Oxygen Flow Rate 0 Objective Labs 07/07/23 06:05 07/07/23 06:05 Labs: Laboratory Results - last 24 hr 07/07/23 06:05 WBC 6.8 RBC 2.56 L Hgb 7.6 L Hct 21.8 L MCV 85.5 MCH 29.6 MCHC 34.6 RDW 14.0 Plt Count 172 Neut % (Auto) 78.8 H Lymph % (Auto) 10.3 L [place] % (Auto) 10.4 Eos % (Auto) 0.4 L Baso % (Auto) 0.1 Neut # (Auto) 5300 Lymph # (Auto) 700 L [place] # (Auto) 700 Eos # (Auto) 0 Baso # (Auto) 0 Sodium 131 L Potassium 3.1 L Chloride 94 L Carbon Dioxide 32 BUN 18 H Creatinine 0.51 L Estimated GFR > 60 BUN/Creatinine Ratio 35.3 H Glucose 81 Calcium 8.7 Magnesium 1.9 PFSH Medical History Easy bruisability Well adult exam Plantar warts Osteoarthritis (~1991) Shoulder pain Fractures (~1974) Chronic back pain Measles Chicken pox Vertigo Tinnitus Positive FIT (fecal immunochemical test) Right hip pain (01/2021) Depression (02/2019) Hypokalemia Post-menopause Serum calcium elevated Essential hypertension Migraine without aura or status migrainosus Fibromyalgia (~1989) History of iron deficiency anemia COPD (chronic obstructive pulmonary disease) with acute bronchitis Surgical History Anesthesia History of hip surgery (~1974) Family History Father Diabetes mellitus Hypertension Hyperlipidemia Stroke Mother Cancer Brother Cancer Social History household members: none Smoking Status: Former smoker Tobacco: How many years used: 35 second hand exposure: No alcohol intake: current substance use type: marijuana Quality VTE Deep Vein Thrombosis/Pulmonary Embolism Present on Admission: No
--- NOTE | 2023-07-07 18:11 | PC.NURSE ---
Pt discharged home at 1745, escorted off floor in wheelchair accompanied by hospital staff. IV removed, tele d/c'd, discharge teaching completed including follow up appointments, new medications and wound care. Questions answered and concerns addressed. Patient left the floor with all belongings.
== END 2023-07-07 18:12 | disposition home or self-care (01) | DRG 470 ==
PROVIDERS: Internal Medicine; Physician Assistant; Physician Assistant Medical; Student in an Organized Health Care Education/Training Program; Surgery; Admitting Provider Orthopaedic Surgery Adult Reconstructive Orthopaedic Surgery; PCP Family Medicine; Referring Provider Orthopaedic Surgery Adult Reconstructive Orthopaedic Surgery; Visit Provider Orthopaedic Surgery Adult Reconstructive Orthopaedic Surgery
PROC: 0SR901A Replacement of Right Hip Joint with Metal Synthetic Substitute, Uncemented, Open Approach (ICD-10-PCS; principal; 2023-07-02 10:45)
PROC: 0DJ08ZZ Inspection of Upper Intestinal Tract, Via Natural or Artificial Opening Endoscopic (ICD-10-PCS; CPT 43235; principal; 2023-07-07 14:15)
DX: M16.51 Unilateral post-traumatic osteoarthritis, right hip (principal); D62 Acute posthemorrhagic anemia; I95.81 Postprocedural hypotension; M24.051 Loose body in right hip; E87.6 Hypokalemia; E03.9 Hypothyroidism, unspecified; K29.70 Gastritis, unspecified, without bleeding; K29.80 Duodenitis without bleeding; E83.42 Hypomagnesemia; F12.23 Cannabis dependence with withdrawal; I10 Essential (primary) hypertension; Z87.891 Personal history of nicotine dependence
CPT/HCPCS: 36415; 36430; 43239; 73502; 76000; 76882; 80048; 80053; 83735; 84132; 84439; 84443; 84484; 85007; 85014; 85018; 85025; 85027; 86850; 86900; 86901; 93005; 93010; 94640; 94762; 97116; 97161; 97530; 99232; C1776; P9016; C9113; J0690; J0780; J1100; J2060; J2274; J2405; J2704; J3010; J3475

== ENCOUNTER → 2023-08-03 10:29 | Outpatient (CLI) | payer MEDICARE, SELFPAY ==
[2023-07-02 16:58] VITALS: BMI 22.2
--- NOTE | 2023-08-03 10:39 | DI.RAD.S_ITS ---
PROCEDURE: XR LUMBAR SPINE 2-3V INDICATIONS: eval progressive back pain TECHNIQUE: 3 views of the lumbar spine were acquired. COMPARISON: [facility], CT, CT HIP RIGHT WITHOUT CON, 03/16/2023, 9:47. [facility] [place], CR, XR PELVIS WITH LATERAL HIP RIGHT, 07/15/2023, 13:48. FINDINGS: Bones: 5 [id number] vertebrae are present. There is 35.5 degree levoscoliosis. ligament normal bony alignment. No vertebral body compression fractures. No suspicious bony lesions. Moderate to severe degenerative disc disease at L1-L2, L2-L3, L3-L4 and L4-L5, mild degenerative disease at L5-S1. Moderate facet arthropathy at L2-L3, L3-L4, L4-L5 and L5-S1. There is osteopenia. There are 2 surgical plates and multiple screws in the right iliac vein. Postsurgical changes related to right hip arthroplasty. Soft tissues: Overlying bowel gas pattern is normal. No suspicious soft tissue calcifications. IMPRESSION: 1. 35.5 degree levoscoliosis. 2. [id number] degenerative disc and facet disease. If clinical symptoms persist, MRI is suggested for further evaluation. 3. Postsurgical changes in right iliac bone. 4. Right hip arthroplasty. Dictated by: Laila Taylor M.D. on 08/03/2023 at 16:27 Approved by: Laila Taylor M.D. on 08/03/2023 at 16:32
--- NOTE | 2023-08-03 10:39 | DI.RAD.S_ITS ---
PROCEDURE: XR THORACIC SPINE 3V INDICATIONS: eval progressive back pain TECHNIQUE: 3 views of the thoracic spine were acquired. COMPARISON: [facility], CR, XR LUMBAR SPINE 2-3V, 08/03/2023, 11:11. FINDINGS: Bones: No fractures or dislocations. No suspicious bony lesions. Levoscoliosis in lumbar spine. Moderate degenerative disc disease at T11-T12 and T12-L1. Mild degenerative disc disease elsewhere in thoracic spine. 12 pairs of ribs are noted, and appear intact where visualized. Soft tissues: No paravertebral stripe thickening. IMPRESSION: 1. Rkhz-[id number] degenerative disease. 2. Scoliosis. Dictated by: Laila Taylor M.D. on 08/03/2023 at 16:33 Approved by: Laila Taylor M.D. on 08/03/2023 at 16:36
[2023-08-03 11:11] LABS: Add Manual Diff / Slide Review NO; Basophils Absolute Auto 0 /uL (0-100); Basophils Percent Auto 0.8 % (0-2); Eosinophils Absolute Auto 200 /uL (0-450); Eosinophils Percent Auto 3.5 % (2-4); Hematocrit 24.3 % (36-46); Lymphocytes Absolute Auto 900 /uL (1100-4500); Lymphocytes Percent Auto 19.4 % (25-40); Mean Corpuscular HGB Conc 33.1 % (30-36); Mean Corpuscular Hemoglobin 27.7 PG (26-34); Mean Corpuscular Volume 83.9 fL (80-100); Monocytes Absolute Auto 300 /uL (0-900); Monocytes Percent Auto 7.2 % (3-14); Neutrophils Absolute Auto 3300 /uL (1500-7000); Neutrophils Percent Auto 69.1 % (50-75); Platelet Count 319 X10^3/uL (150-400); Red Blood Cell Count 2.89 X10^6/uL (4.0-5.2); Red Cell Distribution Width 14.5 % (11.6-14.8); White Blood Cell Count 4.8 X10^3/uL (4.5-11.0)
[2023-08-03 12:26] LABS: Alanine Aminotransferase 22 IU/L (<35); Albumin 3.9 g/dL (3.5-5.0); Albumin Globulin Ratio 1.3 (1.0-2.8); Alkaline Phosphatase 108 U/L (38-126); Aspartate Aminotransferase 29 IU/L (14-36); BUN Creatinine Ratio 17.5 (6-22); Bilirubin Total 0.4 mg/dL (0.2-1.3); Blood Urea Nitrogen 14 mg/dL (7-17); Calcium 9.5 mg/dL (8.4-10.2); Carbon Dioxide 27 mmol/L (22-32); Chloride 99 mmol/L (98-107); Estimated Glomerular Filt Rate > 60 mL/min (>60); Globulin 3.1 g/dL (1.7-4.1); Glucose 101 mg/dL (80-110); HEMOLYSIS < 15 (0-50); Iron 34 ug/dL (37-170); Potassium 3.5 mmol/L (3.4-5.1); Sodium 134 mmol/L (137-145)
[2023-08-03 12:39] LABS: Percent Iron Saturation 8 % (15-50); Total Iron Binding Capacity 411 ug/dL (265-497); Transferrin 360 mg/dL (206-381)
[2023-08-03 12:44] LABS: Free T4, Direct Thyroxine 1.11 ng/dL (0.78-2.19)
[2023-08-03 12:58] LABS: Thyroid Stimulating Hormone 38.1 uIU/mL (0.47-4.68)
[2023-08-03 13:15] LABS: Vitamin B12 640 pg/mL (239-931)
== END ==
PROVIDERS: PCP Family Medicine; Referring Provider Family Medicine; Visit Provider Family Medicine
DX: M54.50 Low back pain, unspecified (principal); E03.8 Other specified hypothyroidism; M54.9 Dorsalgia, unspecified; E06.3 Autoimmune thyroiditis; D64.9 Anemia, unspecified; G89.29 Other chronic pain; I10 Essential (primary) hypertension; M25.551 Pain in right hip
CPT/HCPCS: 36415; 72072; 72100; 80053; 82607; 83540; 83550; 84439; 84443; 85025

== ENCOUNTER → 2023-10-12 09:37 | Outpatient (CLI) | payer MEDICARE, SELFPAY ==
[2023-07-02 16:58] VITALS: BMI 22.2
[2023-10-12 10:23] LABS: Add Manual Diff / Slide Review NO; Basophils Absolute Auto 0 /uL (0-100); Basophils Percent Auto 0.4 % (0-2); Eosinophils Absolute Auto 100 /uL (0-450); Hematocrit 38.3 % (36-46); Lymphocytes Absolute Auto 1500 /uL (1100-4500); Lymphocytes Percent Auto 17.4 % (25-40); Mean Corpuscular HGB Conc 34.1 % (30-36); Mean Corpuscular Hemoglobin 28.6 PG (26-34); Monocytes Absolute Auto 600 /uL (0-900); Monocytes Percent Auto 6.6 % (3-14); Neutrophils Absolute Auto 6200 /uL (1500-7000); Neutrophils Percent Auto 74.6 % (50-75); Platelet Count 245 X10^3/uL (150-400); Red Blood Cell Count 4.56 X10^6/uL (4.0-5.2); Red Cell Distribution Width 18.6 % (11.6-14.8); White Blood Cell Count 8.4 X10^3/uL (4.5-11.0)
[2023-10-12 10:50] LABS: HEMOLYSIS < 15 (0-50); Iron 71 ug/dL (37-170)
[2023-10-12 10:56] LABS: Alanine Aminotransferase 19 IU/L (<35); Albumin 4.5 g/dL (3.5-5.0); Albumin Globulin Ratio 1.7 (1.0-2.8); Alkaline Phosphatase 93 U/L (38-126); Aspartate Aminotransferase 26 IU/L (14-36); BUN Creatinine Ratio 21.7 (6-22); Bilirubin Total 0.4 mg/dL (0.2-1.3); Blood Urea Nitrogen 15 mg/dL (7-17); Calcium 10.7 mg/dL (8.4-10.2); Carbon Dioxide 30 mmol/L (22-32); Chloride 103 mmol/L (98-107); Cholesterol 192 mg/dL (140-199); Estimated Glomerular Filt Rate > 60 mL/min (>60); Globulin 2.6 g/dL (1.7-4.1); Glucose 117 mg/dL (80-110); HDL Cholesterol 77 mg/dL (40-60); HEMOLYSIS < 15 (0-50); LDL Cholesterol Calculated 85 mg/dL (<100); Sodium 137 mmol/L (137-145); Total Protein 7.1 g/dL (6.3-8.2); Triglycerides 152 mg/dL (35-150)
[2023-10-12 11:01] LABS: Percent Iron Saturation 19 % (15-50); Total Iron Binding Capacity 373 ug/dL (265-497); Transferrin 303 mg/dL (206-381)
[2023-10-12 11:08] LABS: Free T4, Direct Thyroxine 2.27 ng/dL (0.78-2.19)
[2023-10-12 11:28] LABS: Thyroid Stimulating Hormone < 0.015 uIU/mL (0.47-4.68)
[2023-10-12 11:43] LABS: Vitamin B12 827 pg/mL (239-931)
== END ==
PROVIDERS: PCP Family Medicine; Referring Provider Family Medicine; Visit Provider Family Medicine
DX: E53.8 Deficiency of other specified B group vitamins (principal); Z86.2 Personal history of diseases of the blood and blood-forming organs and certain disorders involving the immune mechanism; E03.8 Other specified hypothyroidism; E61.1 Iron deficiency; D64.9 Anemia, unspecified; E06.3 Autoimmune thyroiditis; E78.5 Hyperlipidemia, unspecified; Z96.641 Presence of right artificial hip joint
CPT/HCPCS: 36415; 80053; 80061; 82607; 83540; 83550; 84439; 84443; 85025

== ENCOUNTER → 2023-10-22 08:01 | Outpatient (CLI) | payer MEDICARE, SELFPAY ==
[2023-07-02 16:58] VITALS: BMI 22.2
[2023-10-22 09:27] LABS: Alanine Aminotransferase 20 IU/L (<35); Albumin 4.4 g/dL (3.5-5.0); Albumin Globulin Ratio 1.8 (1.0-2.8); Alkaline Phosphatase 87 U/L (38-126); Aspartate Aminotransferase 25 IU/L (14-36); BUN Creatinine Ratio 29.9 (6-22); Bilirubin Total 0.5 mg/dL (0.2-1.3); Blood Urea Nitrogen 23 mg/dL (7-17); Calcium 10.3 mg/dL (8.4-10.2); Carbon Dioxide 30 mmol/L (22-32); Chloride 102 mmol/L (98-107); Estimated Glomerular Filt Rate > 60 mL/min (>60); Globulin 2.5 g/dL (1.7-4.1); Glucose 99 mg/dL (80-110); HEMOLYSIS < 15 (0-50); Potassium 3.8 mmol/L (3.4-5.1); Sodium 138 mmol/L (137-145); Total Protein 6.9 g/dL (6.3-8.2)
== END ==
PROVIDERS: PCP Family Medicine; Referring Provider Family Medicine; Visit Provider Family Medicine
DX: E87.6 Hypokalemia (principal); E83.52 Hypercalcemia
CPT/HCPCS: 36415; 80053

== ENCOUNTER → 2023-11-25 08:58 | Outpatient (CLI) | payer MEDICARE, SELFPAY ==
[2023-07-02 16:58] VITALS: BMI 22.2
--- NOTE | 2023-11-25 09:00 | DI.MRI.S_ITS ---
PROCEDURE: MR LUMBAR SPINE WO CON INDICATIONS: Low back pain and radiculopathy TECHNIQUE: Noncontrast sagittal T1 spin echo and T2 fast echo, sagittal STIR, and T2 fast spin echo through the lumbar spine. In cases with scoliosis, additional coronal T2 fast spin echo may be performed. COMPARISON: None. FINDINGS: Image quality: Excellent. Alignment and Curvature: Levoscoliosis Bone Marrow: Degenerative endplate changes Spinal Cord: Conus medullaris terminates at the L1 level. Visualized cord demonstrates normal signal and size. Paraspinous Soft Tissues: No paravertebral masses. T12-L1: Disc space narrowing. No central or foraminal stenosis L1-L2: Disc space narrowing. Arthropathy. Severe right and no left foraminal stenosis. No central stenosis L2-L3: Disc space narrowing. Arthropathy. Severe right and moderate left foraminal stenosis. No central stenosis L3-L4: Disc space narrowing. Arthropathy. Moderate right and left foraminal stenosis. No central stenosis L4-L5: Disc space narrowing with arthropathy. Mild right and severe left foraminal stenosis. No central stenosis L5-S1: Arthropathy. Perineural cysts results in sacral foraminal remodeling moderate left and mild right foraminal stenosis. No central stenosis IMPRESSION: Multilevel degenerative disc disease, arthropathy and levoscoliosis results in varying degrees of foraminal stenosis including severe foraminal stenosis L1-2, L2-3, L4-5 Approved by: Jeet Samuel M.D. on 11/25/2023 at 18:06
--- NOTE | 2023-11-25 09:00 | DI.RAD.S_ITS ---
PROCEDURE: XR CERVICAL SPINE 4V OR 5V INDICATIONS: Neck pain TECHNIQUE: 5 views of the cervical spine acquired. COMPARISON: None. FINDINGS: Bones: No fractures or dislocations to the T1 level. Oblique images demonstrate bony foraminal stenosis at C4-5, C5-6, and C6-7 on the right as well as the left C5-6 and C6-7 levels. No acute compression fractures. Straightening of cervical lordosis. Moderate multilevel cervical spondylosis throughout the imaged spine most prominent from C4-5 through C6-7. Soft tissues: No prevertebral soft tissue swelling. IMPRESSION: Cervical spine without acute fracture or traumatic malalignment. Moderate multilevel cervical spondylosis most pronounced from C4-5 through C6-7. Bilateral bony neuroforaminal stenosis as described above. Mild straightening of normal cervical lordosis likely related to positioning and/or concurrent muscle spasms. Dictated by: Michael Ivey M.D. on 11/25/2023 at 10:23 Approved by: Michael Ivey M.D. on 11/25/2023 at 10:28
== END ==
LOC: MRI 08:59
PROVIDERS: PCP Family Medicine; Referring Provider Anesthesiology; Visit Provider Anesthesiology
DX: M51.16 Intervertebral disc disorders with radiculopathy, lumbar region (principal); M47.27 Other spondylosis with radiculopathy, lumbosacral region; M48.061 Spinal stenosis, lumbar region without neurogenic claudication; M47.26 Other spondylosis with radiculopathy, lumbar region; M48.07 Spinal stenosis, lumbosacral region; M47.812 Spondylosis without myelopathy or radiculopathy, cervical region; M48.02 Spinal stenosis, cervical region; M41.9 Scoliosis, unspecified; M54.2 Cervicalgia; M54.9 Dorsalgia, unspecified; G89.29 Other chronic pain
CPT/HCPCS: 72050; 72148

== ENCOUNTER → 2024-01-03 11:06 | Outpatient (CLI) | payer MEDICARE, SELFPAY ==
[2023-12-22 09:30] VITALS: BMI 22.2
--- NOTE | 2024-01-03 11:08 | DI.MRI.S_ITS ---
PROCEDURE: MR CERVICAL SPINE WO CON INDICATIONS: Cervical radiculopathy TECHNIQUE: Noncontrast sagittal T1 spin echo and T2 fast spin echo, sagittal STIR, foraminal oblique sagittal T2 fast spin echo, and axial gradient echo or T2 fast spin echo through the cervical spine. COMPARISON: [facility], CR, XR CERVICAL SPINE 4V OR 5V, 11/25/2023, 8:59. FINDINGS: Image quality: Excellent. Alignment and Curvature: Straightening of cervical spine. Mild anterolisthesis of C2 on C3, C3 on C4. Bone Marrow: Mild marrow edema with subchondral cystic changes in the anterior aspect of the dens, favoring degenerative. Mild fibrovascular end plate change at C4-5. Moderate right facet arthropathy at C2-3 with associated marrow edema. Spinal Cord: Visualized spinal cord has normal size and signal. No cerebellar tonsillar herniation. Paraspinous Soft Tissues: No paravertebral masses. Prevertebral soft tissues are normal in thickness. C2-C3: Moderate left facet arthropathy. No stenosis. C3-C4: Posterior disc uncovering. No central canal stenosis. Mild right, severe left facet arthropathy. Mild right and left neural foraminal stenosis. C4-C5: Posterior disc osteophyte complex. No central canal stenosis. Mild bilateral uncovertebral arthropathy. Mild right and left neural foraminal stenosis. C5-C6: Posterior disc osteophyte complex. Moderate central canal stenosis. Moderate bilateral facet arthropathy. Moderate bilateral uncovertebral arthropathy. No neural foraminal stenosis. C6-C7: Posterior disc osteophyte complex. Moderate central canal stenosis. Mild bilateral uncovertebral arthropathy. No neural foraminal stenosis. C7-T1: Normal appearance. Multiple perineural cyst at the cervical thoracic junction. IMPRESSION: Multilevel degenerative changes of the cervical spine, most pronounced at C5-6 and C6-7, where there is moderate central canal stenosis. Additional neural foraminal stenosis as described above. Dictated by: Reina Christensen M.D. on 01/03/2024 at 12:46 Approved by: Reina Christensen M.D. on 01/03/2024 at 12:58
== END ==
LOC: MRI 11:07
PROVIDERS: PCP Family Medicine; Referring Provider Anesthesiology; Visit Provider Anesthesiology
DX: M47.22 Other spondylosis with radiculopathy, cervical region (principal); M48.02 Spinal stenosis, cervical region
CPT/HCPCS: 72141

== ENCOUNTER 2024-01-26 14:02 | Outpatient (CLI) | payer MEDICARE, SELFPAY ==
[2023-07-02 16:58] VITALS: BMI 22.2
[2023-12-22 09:30] VITALS: BMI 22.2
[2024-01-26 14:15] VITALS: BP 168/74; PULSE 77; RESP 16; TEMP 36.6; O2SAT 96
--- NOTE | 2024-01-26 14:30 | DI.RAD.S_ITS ---
PROCEDURE: PAIN L INTERLAMINAR/CAUDAL INJ INDICATIONS: SPONDYLOSIS COMPARISON: None. FINDINGS: Fluoroscopic spot filming was performed to verify placement of spinal needles at the L4-5 level(s), as labeled on the films. Appropriate location(s) of the needle tip(s) was confirmed by injection of iodinated contrast. IMPRESSION: Contrast and needle placement overlying L4-5. Dictated by: Agnes Braswell M.D. on 01/26/2024 at 21:00 Approved by: Agnes Braswell M.D. on 01/26/2024 at 21:01
[2024-01-26 14:35] VITALS: BP 169/83; PULSE 71; RESP 22; O2SAT 99
[2024-01-26] MEDS: DEXAMETHASONE 10 MG/ML VIAL INJ (14:36)
[2024-01-26] MEDS: iopamidoL 15 ML VIAL 3 ML INJ (14:36)
[2024-01-26] MEDS: LIDOCAINE 1% (PF) 5 ML INJ (14:36)
[2024-01-26 14:40] VITALS: BP 152/68; PULSE 69; RESP 16; O2SAT 98
[2024-01-26 14:45] VITALS: BP 149/70; PULSE 74; RESP 18; O2SAT 96
--- NOTE | 2024-01-26 15:20 | P.PCN_ITS ---
Date/Time/Diagnoses Date of procedure: 01/26/24 Time of procedure: 14:30 Procedure Notes Physician: Ion Tariq Total Fluoroscopy time (seconds): 12 Total sedation minutes: 0 Procedure in detail & Post-procedure care: L4-5 Interlaminar Epidural Steroid Injection Indications: Tweet is presenting for treatment of lumbar radiculopathy with low back and leg pain. Preoperative diagnosis: Lumbar radiculopathy Postoperative diagnosis: Same Focused Examination: Ax3 Mood and affect are normal Vital Signs: VSS Consent: Following review of allergies and potential side effects/complications, including, but not necessarily limited to, infection, allergic reaction, local tissue breakdown, stroke, temporary or permanent nerve injury, paralysis, and possible , the patient indicated that they understood and agreed to proceed.? An informed consent document was signed by the patient, witnessed by a nurse and placed in the patient's chart.? Additionally, other treatment options including medications and physical therapy were reviewed with the patient. All questions were answered. Site was then marked. Anesthesia: Local Position: Prone Monitoring: NIBP, Pulse oximetry, 3 lead EKG Needle used: 18 G 3.5? Tuohy Contrast: Isovue 300M Injectate: Dexamethasone 10 mg with 1% lidocaine 2 mL Technique: The skin was prepped with chloraprep and then draped in a sterile fashion. Time out was performed as per protocol. Oxygen applied via NC. Skin and subcutaneous structures of the needle entry site was then infiltrated with 3 mL of lidocaine 1%. Under AP, lateral and contralateral oblique fluoroscopic control, the Tuohy needle was guided into the L4-5 epidural space. The space was accessed with loss of resistance technique. Isovue 300M was then injected and the spread was consistent with the epidural space. There was no evidence for intravascular or intrathecal uptake. After negative aspiration, the above- mentioned injectate was then slowly administered and the needle withdrawn. The patient expressed no unusual discomfort or paresthesias during the injection. Band-Aids applied to injection sites. EBL: less than 1 ml Complications: None Post Procedure: Patient was taken to the recovery and monitored. The patient was provided a Pain Log to continue to record the patient's response to the target- specific procedure prior to the patient's follow-up visit with the referring physician. Patient was stable upon discharge. Detailed post procedure instructions were provided. Patient was asked to call in the event of worsening pain, fever, weakness, numbness or bladder or bowel incontinence.
== END 2024-01-26 14:51 | disposition home or self-care (01) ==
PROVIDERS: PCP Family Medicine; Referring Provider Anesthesiology; Visit Provider Anesthesiology
DX: M54.16 Radiculopathy, lumbar region (principal)
CPT/HCPCS: 62323; J1100

== ENCOUNTER 2024-07-25 08:38 | Outpatient (CLI) | payer MEDICARE, SELFPAY ==
[2024-02-29 14:44] VITALS: BMI 22.2
[2024-07-25] VITALS (10 sets, daily range): BP systolic 133–172; BP diastolic 60–83; PULSE 81–93; RESP 14–21; TEMP 37.2; O2SAT 96–98
--- NOTE | 2024-07-25 08:39 | DI.RAD.S_ITS ---
PROCEDURE: PAIN C/T INTERLAMINAR INJECT INDICATIONS: C6-7 translaminar RENA COMPARISON: None. FINDINGS/IMPRESSION: Fluoroscopic spot filming was performed to verify placement of spinal needles at the C6-7 level(s), as labeled on the films. Appropriate location(s) of the needle tip(s) was confirmed by injection of iodinated contrast. Dictated by: Peter Giles M.D. on 07/25/2024 at 15:48 Approved by: Peter Giles M.D. on 07/25/2024 at 15:49
[2024-07-25] MEDS: MIDAZOLAM 2 MG/2 ML VIAL 1 MG IV ×2 (09:32→09:42)
[2024-07-25] MEDS: BUPIVACAINE 0.25% (PF) VIAL 2 ML INJ (09:40)
[2024-07-25] MEDS: DEXAMETHASONE 10 MG/ML VIAL 20 MG INJ (09:40)
[2024-07-25] MEDS: iopamidoL 15 ML VIAL 3 ML INJ (09:40)
--- NOTE | 2024-07-25 09:56 | P.PCN_ITS ---
Date/Time/Diagnoses Date of procedure: 07/25/24 Time of procedure: 09:56 Pre-procedure diagnosis: 1. CERVICAL STENOSIS, 2. CERVICAL HNP WITH UPPER EXTREMITY RADICULAR FEATURES Post-procedure diagnosis: same Procedure Notes Procedure: 1. FLUORSCOPICALLY GUIDED CONTRAST CONTROLLED INTERLAMINAR EPIDURAL STEROID INJECTION - C6/7 TL RENA Indications: Ana is referred by Dr. Saenz for treatment of Cervical HNP with Upper Extremity Paresthesias. Physician: Benny Connors Total Fluoroscopy time (seconds): 33 Total sedation minutes: 19 Complications: none Procedure in detail & Post-procedure care: FINDINGS Cervical Stenosis due to disc deterioration and nerve root irritation and nerve root irritation DESCRIPTION OF PROCEDURE Fluoroscopically guided, contrast-controlled C6/7 translaminar epidural steroid injection with conscious sedation. Following review of allergy and review of potential side effects and complications, including, but not necessarily limited to, infection, allergic reaction, local tissue breakdown, temporary as well as permanent nerve injury, stroke, paralysis, and possible , the patient indicated that patient understood and agreed to proceed. An informed consent document was signed by the patient, witnessed by a nurse, and placed in the patient's chart. Additionally, other treatment options including modalities, medications, and physical therapy were reviewed with the patient. After review of previous anaesthesic history and IV conscious sedation the patient was deemed safe to proceed with today?s procedure with IV conscious s edation as ASA class II designation. Safety time-out was performed to confirm patient ID, procedure to be performed and site of procedure. IV sedation was accomplished with a combination of 2mg of Versed administered by the RN after DO order, titrated to patient comfort during the course of the procedure while the patient remained responsive to all verbal commands. In the prone position, following sterile prep and drape of the cervical region, the C6/7 translaminar space was identified fluoroscopically. The skin was anesthetized via a 25-gauge 1.5-inch needle with 1% lidocaine solution. At this point, a 25-gauge, 2.5-inch short bevel spinal needle was atraumatically introduced and advanced under fluoroscopic guidance into epidural space at the C6/7 translaminar space. Depth was confirmed on lateral view. Radiological data, including multiple fluoroscopic views of the cervical spine, reveal a spinal needle at the C6/7 translaminar space. Lateral views then show placement of the needle in the epidural space. Subsequent views show contrast material flowing superiorly and inferiorly in the epidural space. DSA fluoroscopy with live contrast injection, once again, confirmed no vascular or intrathecal uptake. At this point, using loss of resistance technique with saline and air, the epidural space was entered. Following negative aspiration, injection of approximately 1.5 cc of Isovue-200 with live fluoroscopy in the AP view confirmed epidural flow in the epidural space without vascular or intrathecal uptake observed. Subsequently, a test dose of 1 cc of 1% lidocaine solution was injected and patient was observed for two minutes without signs or symptoms of complications, including abdominal pain, shortness of breath, bilateral upper or lower extremity weakness, nausea and vomiting, prior to steroid injection. At this point, 2cc or 20mg of dexamethasone was then injected without incident. The patient tolerated the procedure well without signs or symptoms of complications prior to being transferred to the recovery area for further monitoring, The patient was then transferred to the recovery area where they were observed for an appropriate period of time after the injection. The patient reported a VAS score of 6 prior to the procedure and a post-procedure VAS of 0. POST OP INSTRUCTIONS The patient was provided a Pain Log to continue to record their response to the target-specific procedure prior to follow-up visit with the referring provider. Additionally, specific post-injection care instructions and a contact number to our office were provided if concerns arise regarding possible complications associated with the procedure are suspected.
== END 2024-07-25 10:17 | disposition home or self-care (01) ==
PROVIDERS: PCP Family Medicine; Referring Provider Physical Medicine & Rehabilitation; Visit Provider Physical Medicine & Rehabilitation
DX: M48.02 Spinal stenosis, cervical region (principal); M54.12 Radiculopathy, cervical region
CPT/HCPCS: 62321; 99152; J1100; J2250; J3490

== ENCOUNTER → 2024-09-02 10:36 | Outpatient (CLI) | payer MEDICARE, SELFPAY ==
[2024-02-29 14:44] VITALS: BMI 22.2
--- NOTE | 2024-09-02 10:38 | DI.CT.S_ITS ---
PROCEDURE: CT LUNG LOW DOSE SCREENING INDICATIONS: routine screening TECHNIQUE: Noncontrast 2.0-2.5 mm thick sections acquired from the pulmonary apices to the posterior costophrenic angles. 7 mm thick axial MIP, and 5 mm coronal and sagittal reformats were then acquired. For radiation dose reduction, the following was used: automated exposure control, adjustment of mA and/or kV according to patient size. COMPARISON: [facility], CT, CT CHEST HIGH RESOLUTION, 02/05/2023, 8:53. FINDINGS: Image quality: Diagnostic. Lower Neck: No enlarged lymph nodes. Thyroid: No thyroid nodules which require sonographic follow up, per consensus guidelines. Axillae: No enlarged lymph nodes. Chest Wall: Unremarkable. Bones: No lytic or blastic bony lesions. Lungs and Pleura: No pneumothorax or pleural effusions. No consolidation or suspicious nodules. Diffuse emphysematous change with centrilobular emphysema in the apices and impressive emphysema in the lung bases. Consider possible alpha 1 antitrypsin disorder as a possibility based on the impressive nature of the bibasilar emphysematous change. Heart: Heart size is normal. No pericardial effusion. Mild coronary artery calcifications. Thoracic Vessels: The aorta and pulmonary arteries demonstrate normal size. Mediastinum and Kay: No enlarged lymph nodes. Esophagus: No wall thickening. Small hiatal hernia. Upper Abdomen: Visualized upper abdomen solid organs and bowel loops appear normal. IMPRESSION: 1. Biapical centrilobular emphysema and severe bibasilar emphysema. Based on distribution of basilar changes, consider possible alpha-1 antitrypsin deficiency. 2. No suspicious pulmonary nodules. LUNG-RADS 1; continued annual screening, if eligible. Clinically Significant Non-pulmonary Findings: None. Dictated by: Modesto Palomo M.D. on 09/03/2024 at 11:34 Approved by: Modesto Palomo M.D. on 09/03/2024 at 11:39
== END ==
PROVIDERS: PCP Family Medicine; Referring Provider Family Medicine; Visit Provider Family Medicine
DX: F17.210 Nicotine dependence, cigarettes, uncomplicated (principal); Z12.2 Encounter for screening for malignant neoplasm of respiratory organs; J43.2 Centrilobular emphysema; I25.10 Atherosclerotic heart disease of native coronary artery without angina pectoris; K44.9 Diaphragmatic hernia without obstruction or gangrene
CPT/HCPCS: 71271

== ENCOUNTER → 2024-09-19 13:11 | Outpatient (CLI) | payer MEDICARE, SELFPAY ==
[2024-02-29 14:44] VITALS: BMI 22.2
== END ==
LOC: RESP 13:13
PROVIDERS: PCP Family Medicine; Referring Provider Family Medicine; Visit Provider Family Medicine
DX: J44.9 Chronic obstructive pulmonary disease, unspecified (principal); Z87.891 Personal history of nicotine dependence; R94.2 Abnormal results of pulmonary function studies
CPT/HCPCS: 94060; 94726; 94729

== ENCOUNTER → 2024-09-30 10:43 | Outpatient (CLI) | payer MEDICARE, SELFPAY ==
[2024-02-29 14:44] VITALS: BMI 22.2
[2024-09-30 12:20] LABS: Add Manual Diff / Slide Review NO; Basophils Absolute Auto 0 /uL (0-100); Basophils Percent Auto 0.6 % (0-2); Eosinophils Absolute Auto 200 /uL (0-450); Eosinophils Percent Auto 2.6 % (2-4); Hematocrit 39.4 % (36-46); Hemoglobin 13.5 g/dL (12.0-16.0); Lymphocytes Absolute Auto 1600 /uL (1100-4500); Lymphocytes Percent Auto 20.4 % (25-40); Mean Corpuscular HGB Conc 34.2 % (30-36); Mean Corpuscular Hemoglobin 30.9 PG (26-34); Mean Corpuscular Volume 90.4 fL (80-100); Monocytes Absolute Auto 600 /uL (0-900); Monocytes Percent Auto 7.8 % (3-14); Neutrophils Absolute Auto 5200 /uL (1500-7000); Neutrophils Percent Auto 68.6 % (50-75); Platelet Count 259 X10^3/uL (150-400); Red Blood Cell Count 4.36 X10^6/uL (4.0-5.2); White Blood Cell Count 7.6 X10^3/uL (4.5-11.0)
[2024-09-30 12:26] LABS: HEMOLYSIS < 15 (0-50); Iron 122 ug/dL (37-170)
[2024-09-30 12:28] LABS: Alanine Aminotransferase 22 IU/L (<35); Albumin 4.5 g/dL (3.5-5.0); Albumin Globulin Ratio 1.8 (1.0-2.8); Alkaline Phosphatase 90 U/L (38-126); Aspartate Aminotransferase 29 IU/L (14-36); BUN Creatinine Ratio 20.3 (6-22); Bilirubin Total 0.6 mg/dL (0.2-1.3); Blood Urea Nitrogen 15 mg/dL (7-17); Calcium 10.5 mg/dL (8.4-10.2); Carbon Dioxide 28 mmol/L (22-32); Chloride 99 mmol/L (98-107); Estimated Glomerular Filt Rate > 60 mL/min (>60); Globulin 2.5 g/dL (1.7-4.1); Glucose 104 mg/dL (80-110); HEMOLYSIS < 15 (0-50); Potassium 3.8 mmol/L (3.4-5.1); Sodium 135 mmol/L (137-145)
[2024-09-30 12:39] LABS: Percent Iron Saturation 38 % (15-50); Total Iron Binding Capacity 322 ug/dL (265-497); Transferrin 268 mg/dL (206-381)
[2024-09-30 12:56] LABS: Thyroid Stimulating Hormone 0.039 uIU/mL (0.47-4.68)
[2024-09-30 13:15] LABS: Vitamin B12 > 1000 pg/mL (239-931)
== END ==
PROVIDERS: PCP Family Medicine; Referring Provider Family Medicine; Visit Provider Family Medicine
DX: E03.8 Other specified hypothyroidism (principal); E06.3 Autoimmune thyroiditis; I10 Essential (primary) hypertension; E78.5 Hyperlipidemia, unspecified; D64.9 Anemia, unspecified
CPT/HCPCS: 36415; 80053; 82607; 83540; 83550; 84439; 84443; 85025

== ENCOUNTER 2024-11-28 08:39 | Outpatient (CLI) | payer MEDICARE, SELFPAY ==
[2024-11-17 14:08] VITALS: BMI 22.2
[2024-11-28] VITALS (7 sets, daily range): BP systolic 130–154; BP diastolic 61–79; PULSE 71–89; RESP 14–22; TEMP 36.9; O2SAT 31–100
[2024-11-28] MEDS: MIDAZOLAM 2 MG/2 ML VIAL IV (09:56)
[2024-11-28] MEDS: iopamidoL 15 ML VIAL 3 ML INJ (10:03)
[2024-11-28] MEDS: DEXAMETHASONE 10 MG/ML VIAL 20 MG INJ (10:04)
[2024-11-28] MEDS: BUPIVACAINE 0.5% (PF) 10 ML VIAL 2 ML INJ (10:05)
--- NOTE | 2024-11-28 10:11 | P.PCN_ITS ---
Date/Time/Diagnoses Date of procedure: 11/28/24 Time of procedure: 10:11 Pre-procedure diagnosis: 1. FACET ARTHROPATHY 2. AXIAL NECK PAIN Post-procedure diagnosis: same Procedure Notes Procedure: 1. FLUOROSCOPICALLY GUIDED, CONTRAST-CONTROLLED RIGHT C5/6 AND C6/7 FACET JOINT INJECTIONS WITH CONSCIOUS SEDATION. Indications: Ana is referred by Dr. Saenz for treatment of Axial Neck Pain Physician: Benny Connors Total Fluoroscopy time (seconds): 10 Total sedation minutes: 10 Complications: none Procedure in detail & Post-procedure care: DESCRIPTION OF PROCEDURE Fluoroscopically guided, contrast-controlled right C5/6 and C6/7 facet joint injections with conscious sedation. Following review of allergy and review of potential side effects and complications, including, but not necessarily limited to, infection, allergic reaction, local tissue breakdown, stroke, temporary or permanent nerve injury and paralysis, the patient indicated that the patient understood and agreed to proceed. An informed consent document was signed by the patient, witnessed by a nurse, and placed in the patient's chart. Additionally, other treatment options including medications, modalities, and physical therapy were reviewed with the patient. After review of previous anaesthesic history and IV conscious sedation the patient was deemed safe to proceed with today?s procedure with IV conscious sedation as ASA class II designation. Safety time-out was performed to confirm patient ID, procedure to be performed and site of procedure. IV sedation was accomplished with a combination of 2mg of Versed was administered by the RN after DO order, titrated to patient comfort during the course of the procedure while the patient remained responsive to all verbal commands In the prone position, following sterile prep and drape of the cervical spine region, the posterior aspect of the right C5/6 and C6/7 facet joints were identified fluoroscopically. The skin was anesthetized via a 25-gauge 1.5-inch needle with 1% lidocaine solution into the corresponding facet joints. At this point, a 25-gauge 2.5-inch spinal needle was atraumatically introduced and advanced under fluoroscopic guidance into the corresponding facet joints. Following negative aspiration, injections of approximately 0.2-cc of Isovue 200 confirmed interarticular placement without vascular uptake. At this point, a total of 1cc including 0.5cc or 5mg of dexamethasone combined with 0.5cc of 1% lidocaine solution was injected without complication into each of the corresponding facet joints. The procedure tolerated the procedure well without signs or symptoms of complications prior to transfer to the recovery area continued monitoring without incident. The patient was then transferred to the recovery area where they were observed for an appropriate period of time after the injection. The patient reported a VAS score of 7 prior to the procedure and a post- procedure VAS of 0. POST OP INSTRUCTIONS They were provided a Pain Log to continue to record their response to the target-specific procedure prior to their follow-up visit with their referring physician. Additionally, specific post-injection care instructions and a contact number to our office were provided if concerns arise regarding possible complications associated with the procedure are suspected.
== END 2024-11-28 10:30 | disposition home or self-care (01) ==
PROVIDERS: PCP Family Medicine; Referring Provider Physical Medicine & Rehabilitation; Visit Provider Physical Medicine & Rehabilitation
DX: M47.812 Spondylosis without myelopathy or radiculopathy, cervical region (principal); M54.2 Cervicalgia
CPT/HCPCS: 64490; 64491; 99152; J1100; J2250

== ENCOUNTER → 2024-12-12 10:14 | Outpatient (CLI) | payer MEDICARE, SELFPAY ==
[2024-11-17 14:08] VITALS: BMI 22.2
--- NOTE | 2024-12-12 10:17 | DI.RAD.S_ITS ---
PROCEDURE: XR HIP W PEL IF DONE LT 2V INDICATIONS: LEFT HIP PAIN TECHNIQUE: AP pelvis with lateral view(s) of the left hip(s). COMPARISON: [facility], CR, XR HIP W PEL IF DONE RT 2V, 07/02/2023, 14:41. FINDINGS: Bones: CAM configuration of the left femoral head neck junction predispose to femoral acetabular impingement and labral tears. Plates and screws transfix old right iliac and supra-acetabular fractures which shows mild deformity -no change radiographically. SI and hip joints: right total hip prostheses remains anatomically aligned without loosening or infection. Moderate left hip degeneration has progressed. Moderate right SI joint diastasis again noted. Left SI joint normal Soft tissues: No soft tissue swelling, calcification or mass. 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 Other chronic findings stable Dictated by: Flip Otero M.D. on 12/13/2024 at 11:48 Approved by: Flip tOero M.D. on 12/13/2024 at 11:50
== END ==
LOC: RAD 10:16
PROVIDERS: PCP Family Medicine; Referring Provider Physical Medicine & Rehabilitation; Visit Provider Physical Medicine & Rehabilitation
DX: M16.12 Unilateral primary osteoarthritis, left hip (principal); S33.2XXA Dislocation of sacroiliac and sacrococcygeal joint, initial encounter; M25.552 Pain in left hip; Z96.641 Presence of right artificial hip joint
CPT/HCPCS: 73502

== ENCOUNTER → 2025-01-18 12:38 | Outpatient (CLI) | payer MEDICARE, SELFPAY ==
[2024-11-17 14:08] VITALS: BMI 22.2
--- NOTE | 2025-01-18 12:39 | DI.US.S_ITS ---
PROCEDURE: US EXTREMELY NONVASC UPPER RT INDICATIONS: LUMP POSTERIOR RIGHT SHOULDER/ARM TECHNIQUE: Real-time scanning was performed of the right posterior arm/shoulder , with image documentation. COMPARISON: [facility], US, US EXTREMITY NONVASC LOWER RT, 07/05/2023, 8:48. FINDINGS AND IMPRESSION: At the area of abnormality, there is a subcutaneous nodule measuring 6 x 1 x 3.8 cm. Isoechoic appearance with circumscribed borders is present. This is most commonly a lipoma. However, if there is clinical concern for change/enlargement, consider sampling. Dictated by: Derrick Kelly M.D. on 01/20/2025 at 6:43 Approved by: Derrick Kelly M.D. on 01/20/2025 at 6:44
== END ==
LOC: US 12:39
PROVIDERS: PCP Family Medicine; Referring Provider Family Medicine; Visit Provider Physician Assistant
DX: R22.31 Localized swelling, mass and lump, right upper limb (principal)
CPT/HCPCS: 76882

== ENCOUNTER 2025-04-24 08:08 | Outpatient (CLI) | payer MEDICARE, SELFPAY ==
[2024-11-17 14:08] VITALS: BMI 22.2
[2025-04-24] VITALS (8 sets, daily range): BP systolic 154–184; BP diastolic 67–87; PULSE 65–84; RESP 16–22; TEMP 36.8; O2SAT 94–100
[2025-04-24] MEDS: MIDAZOLAM 2 MG/2 ML VIAL IV (09:46)
[2025-04-24] MEDS: BETAMETHASONE 30 MG/5 ML MDV 12 MG INJ (09:52)
--- NOTE | 2025-04-24 09:58 | P.PCN_ITS ---
Date/Time/Diagnoses Date of procedure: 04/24/25 Time of procedure: 09:58 Pre-procedure diagnosis: 1. FORAMINAL STENOSIS WITH LE SYMPTOMS Post-procedure diagnosis: same Procedure Notes Procedure: 1. FLUOROSCOPICALLY GUIDED CONTRAST CONTROLLED TRANSFORAMINAL EPIDURAL STEROID INJECTION - RIGHT L4/5 TFESI Indications: Ana is referred by Dr. Saenz for treatment of Foraminal Stenosis with Right LE Symptoms Physician: Benny Connors Total Fluoroscopy time (seconds): 7 Total sedation minutes: 10 Complications: none Procedure in detail & Post-procedure care: FINDINGS Foraminal Nerve Root Compression secondary to disc disease and facet hypertrophy DESCRIPTION OF PROCEDURE Following review of allergy and review of potential side effects and complications, including, but not necessarily limited to, infection, allergic reaction, local tissue breakdown, stroke, temporary or permanent nerve injury, paralysis, and possible , the patient indicated that the patient understood and agreed to proceed. An informed consent document was signed by the patient, witnessed by a nurse, and placed in the patient's chart. Additionally, other treatment options including medications, modalities, and physical therapy were reviewed with the patient. After review of previous anaesthesic history and IV conscious sedation the patient was deemed safe to proceed with today?s procedure with IV conscious sedation as ASA class II designation. Safety time-out was performed to confirm patient ID, procedure to be performed and site of procedure. IV sedation was accomplished with a combination of 2mg of Versed was administered by the RN after DO order, titrated to patient comfort during the course of the procedure while the patient remained responsive to all verbal commands In the prone position following sterile prep and drape of the lumbar region, the right L4/5 posterior neuroforamen was identified fluoroscopically. The skin was anesthetized via a 25-gauge 1.5-inch needle with 1% lidocaine solution. At this point, a 25-gauge 3.5-inch spinal needle was atraumatically introduced and advanced under fluoroscopic guidance through the posterior right L4/5 neuroforamen to approximately the anterior aspect of the canal. Depth was confirmed on lateral view. Following negative aspiration, injection of approximately 1.5cc of Isovue 200 under live fluoroscopy in the AP view confirmed excellent flow along the nerve root, into the epidural space without vascular or intrathecal uptake observed Radiological data, including multiple fluoroscopic views of the lumbosacral spine, reveal a spinal needle at the right L4/5 posterior neuroforamen. Subsequent views show flow of contrast material flowing superiorly and inferiorly along the nerve root confirming epidural flow. Subsequently, a test dose of 1.5 cc of 0.25%marcaine solution was administered and patient was observed for two minutes for signs or symptoms of complications, including abdominal pain, shortness of breath, bilateral upper or lower extremity weakness, nausea and vomiting, prior to steroid injection. At this point, a total of 3cc or 10mg of dexamethasone and 12mg of betamethasone was injected without incident. The procedure tolerated the procedure well without signs or symptoms of complications prior to transfer to the recovery area continued monitoring without incident. The patient was then transferred to the recovery area where they were observed for an appropriate time after the injection. The patient reported a VAS score of 7 prior to the procedure and a post- procedure VAS of 0. POST OP INSTRUCTIONS The patient was provided a Pain Log to continue to record their response to the target-specific procedure prior to follow-up visit with their referring physician. Additionally, specific post-injection care instructions and a contact number to our office were provided if concerns arise regarding possible complications associated with the procedure are suspected.
== END 2025-04-24 10:15 | disposition home or self-care (01) ==
PROVIDERS: Family Provider Family Medicine; PCP Family Medicine; Referring Provider Physical Medicine & Rehabilitation; Visit Provider Physical Medicine & Rehabilitation
DX: M48.061 Spinal stenosis, lumbar region without neurogenic claudication (principal); M51.16 Intervertebral disc disorders with radiculopathy, lumbar region; M47.26 Other spondylosis with radiculopathy, lumbar region
CPT/HCPCS: 64483; 99152; J0702; J1100; J2250

== ENCOUNTER → 2025-05-05 09:00 | Outpatient (CLI) | payer MEDICARE, SELFPAY ==
[2024-11-17 14:08] VITALS: BMI 22.2
--- NOTE | 2025-05-05 09:02 | DI.MRI.S_ITS ---
PROCEDURE: MR LUMBAR SPINE WO CON
== END ==
LOC: MRI 09:01
PROVIDERS: Family Provider Family Medicine; PCP Family Medicine; Referring Provider Physical Medicine & Rehabilitation; Visit Provider Physical Medicine & Rehabilitation
DX: M47.26 Other spondylosis with radiculopathy, lumbar region (principal); M47.27 Other spondylosis with radiculopathy, lumbosacral region; M48.061 Spinal stenosis, lumbar region without neurogenic claudication; M48.07 Spinal stenosis, lumbosacral region; M51.16 Intervertebral disc disorders with radiculopathy, lumbar region; M51.17 Intervertebral disc disorders with radiculopathy, lumbosacral region; E88.2 Lipomatosis, not elsewhere classified
CPT/HCPCS: 72148